=== PATIENT | female | born 1965 | race African-American/Black ===

== ENCOUNTER 2017-09-30 15:43 | Inpatient (IN) | payer OTHER, MEDICARE ==
[~2017-09-30] VITALS: Ht 162.6 cm; Wt 81.2 kg
[2017-09-30] VITALS (11 sets, daily range): BP systolic 118–144; BP diastolic 72–85; PULSE 97–108; RESP 18–28; TEMP 97.8–97.9; O2SAT 96–100
[~2017-09-30 15:43] MED LIST: ARTIDRO; IMIT25TA PO; LISI-357 PO; LORA-392 PO; LORTA5 PO; PRED5TAB PO; RANI150 PO
--- NOTE | 2017-09-30 16:05 | PD ---
HPI Chief Complaint: Shortness of breath Time Seen by Provider: 15:54 Travel History International Travel<30 days: No Contact w/Intl Traveler<30days: No Traveled to known affect area: No History of Present Illness HPI 52-year-old female patient with history of MS, previous stroke, presents to the ER today because she has had worsening dyspnea on exertion end shortness of breath with getting up from bed. She has been coughing. She states that similar symptoms have happened before. She states that she has had "fluid in the lungs". She denies any chest pains, fevers, or other symptoms. Modifying Factors: None Associated Signs & Symptoms: Worsening shortness of breath, dyspnea on exertion Risk Factors: History of "fluid in the lungs" PFSH Past Medical History Arthritis: Yes Depression: Yes Cardiovascular Problems: Yes High Cholesterol: Yes Cerebrovascular Accident: Yes Hypertension: Yes Musculoskeletal: Yes Neurologic: Yes Migraines: Yes Past Surgical History Hysterectomy: Yes Social History Alcohol Use: Yes (RARE) Tobacco Use: No Substance Use: No Allergies-Medications (Allergen,Severity, Reaction): Coded Allergies: latex (Unverified Allergy, Unknown, RASH, 09/30/17) furosemide (Verified Adverse Reaction, Unknown, 09/30/17) pt states get cramping in his legs Reported Meds & Prescriptions Reported Meds & Active Scripts Active Reported Baclofen 10 Mg Tab 10 Mg PO TID Scopolamine 1 Mg/3 Day Patch.td.3 0.33 Patch TD Q72HR Meclizine (Meclizine HCl) 12.5 Mg Tab 12.5 Mg PO BID PRN Lisinopril 10 Mg Tab 10 Mg PO DAILY Ferrous Sulfate DR (Ferrous Sulfate) 324 Mg Tabdr 324 Mg PO DAILY Aspirin 81 Mg Chew 81 Mg PO DAILY Review of Systems Except as stated in HPI: all other systems reviewed are Neg Physical Exam Narrative GENERAL: Well-developed middle-aged female patient whose currently in moderate distress, in mild respiratory distress. Awake, alert, oriented 3. Fairly agitated. SKIN: Focused skin assessment warm/dry. HEAD: Atraumatic. Normocephalic. EYES: Pupils equal and round. No scleral icterus. No injection or drainage. ENT: No nasal bleeding or discharge. Mucous membranes pink and moist. NECK: Trachea midline. No JVD. CARDIOVASCULAR: Regular rate and rhythm. No murmur appreciated. RESPIRATORY: Mild accessory muscle use. Bilateral basilar rales. GASTROINTESTINAL: Abdomen soft, non-tender, nondistended. Hepatic and splenic margins not palpable. MUSCULOSKELETAL: No obvious deformities. No clubbing. No cyanosis. No edema. NEUROLOGICAL: Awake and alert. No obvious cranial nerve deficits. Motor grossly within normal limits. Normal speech. PSYCHIATRIC: Agitated mood and affect; insight and judgment normal. Data Data Last Documented VS Vital Signs Date Time Temp Pulse Resp B/P (MAP) Pulse Ox O2 Delivery O2 Flow Rate FiO2 09/30/17 18:29 108 24 133/85 (101) 98 Non-Rebreather 12.00 100 09/30/17 17:28 97.9 Orders Orders Complete Blood Count With Diff (09/30/17 15:55) Comprehensive Metabolic Panel (09/30/17 15:55) B-Type Natriuretic Peptide (09/30/17 15:55) Act Partial Throm Time (Ptt) (09/30/17 15:55) Prothrombin Time / Inr (Pt) (09/30/17 15:55) Ckmb (Isoenzyme) Profile (09/30/17 15:55) Troponin I (09/30/17 15:55) Arterial Blood Gas (Abg) (09/30/17 15:55) Iv Access Insert/Monitor (09/30/17 15:55) Electrocardiogram (09/30/17 15:55) Ecg Monitoring (09/30/17 15:55) Oximetry (09/30/17 15:55) Oxygen Administration (09/30/17 15:55) Chest, Single Ap (09/30/17 15:55) Sodium Chloride 0.9% Flush (Ns Flush) (09/30/17 16:00) Resp Bipap / Cpap Non Invas Vt (09/30/17 15:55) Furosemide Inj (Lasix Inj) (09/30/17 16:30) Nitroglycerin 2% Oint (Nitroglycerin 2% (09/30/17 16:30) Ct Pulmonary Angiogram (09/30/17 17:23) Iohexol 350 Inj (Omnipaque 350 Inj) (09/30/17 18:09) Methylprednisolone So Succ Inj (Solumedr (09/30/17 18:30) Diphenhydramine Inj (Benadryl Inj) (09/30/17 18:30) Blood Culture (09/30/17 18:23) Azithromycin Inj (Zithromax Inj) (09/30/17 18:30) Cefepime Inj (Maxipime Inj) (09/30/17 18:30) Admit Order (Ed Use Only) (09/30/17 18:37) Labs Laboratory Tests Test 09/30/17 16:00 09/30/17 16:15 White Blood Count 11.1 TH/MM3 Red Blood Count 4.82 MIL/MM3 Hemoglobin 11.7 GM/DL Hematocrit 37.3 % Mean Corpuscular Volume 77.4 FL Mean Corpuscular Hemoglobin 24.3 PG Mean Corpuscular Hemoglobin Concent 31.4 % Red Cell Distribution Width 16.3 % Platelet Count 360 TH/MM3 Mean Platelet Volume 9.2 FL Neutrophils (%) (Auto) 60.5 % Lymphocytes (%) (Auto) 25.1 % Monocytes (%) (Auto) 6.7 % Eosinophils (%) (Auto) 6.8 % Basophils (%) (Auto) 0.9 % Neutrophils # (Auto) 6.7 TH/MM3 Lymphocytes # (Auto) 2.8 TH/MM3 Monocytes # (Auto) 0.7 TH/MM3 Eosinophils # (Auto) 0.7 TH/MM3 Basophils # (Auto) 0.1 TH/MM3 CBC Comment DIFF FINAL Differential Comment Prothrombin Time 10.6 SEC Prothromb Time International Ratio 1.0 RATIO Activated Partial Thromboplast Time 24.5 SEC Blood Urea Nitrogen 9 MG/DL Creatinine 0.76 MG/DL Random Glucose 80 MG/DL Total Protein 8.6 GM/DL Albumin 3.4 GM/DL Calcium Level 9.5 MG/DL Alkaline Phosphatase 89 U/L Aspartate Amino Transf (AST/SGOT) 22 U/L Alanine Aminotransferase (ALT/SGPT) 39 U/L Total Bilirubin 0.3 MG/DL Sodium Level 138 MEQ/L Potassium Level 3.4 MEQ/L Chloride Level 99 MEQ/L Carbon Dioxide Level 34.6 MEQ/L Anion Gap 4 MEQ/L Estimat Glomerular Filtration Rate 97 ML/MIN Total Creatine Kinase 60 U/L Troponin I LESS THAN 0.02 NG/ML B-Type Natriuretic Peptide 5 PG/ML Blood Gas Puncture Site LT BRACHIAL Blood Gas Patient Temperature 98.6 Blood Gas HCO3 34 mmol/L Blood Gas Base Excess 8.9 mmol/L Blood Gas Oxygen Saturation 96 % Arterial Blood pH 7.39 Arterial Blood Partial Pressure CO2 57 mmHg Arterial Blood Partial Pressure O2 93 mmHG Arterial Blood Oxygen Content 15.8 Vol % Arterial Blood Carboxyhemoglobin 1.0 % Arterial Blood Methemoglobin 0.7 % Blood Gas Hemoglobin 11.7 G/DL Oxygen Delivery Device PRB Blood Gas Liter Flow 15 L/M [facility] Medical Decision Making Medical Screen Exam Complete: Yes Emergency Medical Condition: Yes Medical Record Reviewed: Yes Interpretation(s) EKG shows normal sinus rhythm at a rate of 97 bpm with no signs of acute ST changes. Laboratory Tests Test 09/30/17 16:00 09/30/17 16:15 White Blood Count 11.1 TH/MM3 (4.0-11.0) Mean Corpuscular Volume 77.4 FL (80.0-100.0) Mean Corpuscular Hemoglobin 24.3 PG (27.0-34.0) Mean Corpuscular Hemoglobin Concent 31.4 % (32.0-36.0) Eosinophils (%) (Auto) 6.8 % (0.0-4.0) Eosinophils # (Auto) 0.7 TH/MM3 (0-0.4) Total Protein 8.6 GM/DL (6.4-8.2) Potassium Level 3.4 MEQ/L (3.5-5.1) Carbon Dioxide Level 34.6 MEQ/L (21.0-32.0) Anion Gap 4 MEQ/L (5-15) Troponin I LESS THAN 0.02 NG/ML Blood Gas HCO3 34 mmol/L (22-26) Blood Gas Base Excess 8.9 mmol/L (-2-2) Arterial Blood Partial Pressure CO2 57 mmHg (38-42) Blood Gas Hemoglobin 11.7 G/DL (12.0-16.0) Last [address] Angiography 09/30/17 1723 Signed Impressions: Service Date/Time: Saturday, September 30, 2017 17:50 - CONCLUSION: 1. Diffuse bilateral pulmonary infiltrates with cylindrical bronchiectasis. 2. No pulmonary embolus. Dre Moseley Jr., MD Chest X-Ray 09/30/17 1555 Signed Impressions: Service Date/Time: Saturday, September 30, 2017 16:06 - CONCLUSION: Diffuse pulmonary vascular congestion with small lung volumes. Talib Hernandez MD Differential Diagnosis Dyspnea on exertion, shortness of breath: CHF exacerbation versus pleural effusion versus pneumonia Narrative Course Chest x-ray shows pulmonary edema added initially nitroglycerin or Lasix as ordered for the patient. However, the patient states that she has an adverse reaction to Lasix in had refused the Lasix. She was not put on BiPAP initially with some relief in symptoms but she was not able to tolerate it due to anxiety on the BiPAP, states that it felt uncomfortable on her head. She had a normal BNP. CTA was not done to rule out PE but did not show any signs of PE. She does show signs of pulmonary infiltrates bilaterally with bronchiectasis. Considering normal BNP, at this point I am also concerned of underlying diffuse interstitial pneumonia. IV antibiotics were initiated after cultures were drawn. She returned from CTA also complaining of worsening shortness of breath in feels like her throat closing up. As a precaution as well Solu-Medrol was not given an Benadryl as given. My plan at this point as to admit this patient for further evaluation in treatment. Patient has a fairly complex patient an it it is unclear if pneumonia as her only etiology for this issue. She will need her respiratory status will more closely monitored. Case with discussed with Dr. Tobin for admission. Aggregate critical care time was 25 next minutes. Time to perform other separately billable procedures was not included in the critical care time. My time did not include minutes spent treating any other patients simultaneously or on activities that did not directly contribute to the patient's treatment. The services I provided to this patient were to treat and/or prevent clinically significant deterioration that could result in: Worsening respiratory distress, hypoxia, respiratory arrest, I provided critical care services requiring my management, as noted below: Chart data review, documentation time, medication orders and management, vital sign assessments/reviewing monitor data, ordering and reviewing lab tests, ordering and interpreting/reviewing x-rays and diagnostic studies, care of the patient and discussion of the patient with the admitting physicians. Diagnosis Primary Impression: Shortness of breath Additional Impressions: Hypoxia Pneumonia Admitting Information Admitting Physician Requests: Navid Severino MD Sep 30, 2017 16:05
--- NOTE | 2017-09-30 16:18 | RADRPT ---
EXAM DATE/TIME: 09/30/2017 16:06 [facility] COMPARISON: No previous studies available for comparison. INDICATIONS : Short of breath. MEDICAL HISTORY : Stroke. SURGICAL HISTORY : cesarian sections ENCOUNTER: Initial ACUITY: 1 day PAIN SCORE: 0/10 LOCATION: Bilateral chest FINDINGS: A single view of the chest demonstrates mild perihilar basilar congestion. The heart is borderline en larged. No pneumothorax.. Osseous structures are intact. CONCLUSION: Diffuse pulmonary vascular congestion with small lung volumes. Talib Hernandez MD on September 30, 2017 at 16:15 Board Certified Radiologist. This report was verified electronically.
[2017-09-30] MEDS ORDERED: FUROSEMIDE 40 MG/4 ML VIAL IV PUSH ONE (16:30)
[2017-09-30] MEDS ORDERED: NITROGLYCERIN 2% OINT 1 GM PACKET TOPICAL ONE (16:30)
[2017-09-30] MEDS: SODIUM CHLORIDE 0.9% FLUSH 10 ML FLUSH IVF PRN ×2 (16:31→18:25)
[2017-09-30 16:34] LABS: AUTOMATED NEUTROPHIL # 6.7 TH/MM3 (1.8-7.7); BASOPHIL # 0.1 TH/MM3 (0-0.2); BASOPHIL % 0.9 % (0.0-2.0); EOSINOPHIL # 0.7 TH/MM3 (0-0.4); EOSINOPHIL % 6.8 % (0.0-4.0); HEMATOCRIT 37.3 % (35.0-46.0); HEMOGLOBIN 11.7 GM/DL (11.6-15.3); LYMPH % 25.1 % (9.0-44.0); LYMPHOCYTE # 2.8 TH/MM3 (1.0-4.8); MEAN CELL VOLUME 77.4 FL (80.0-100.0); MEAN CORPUSCULAR HEMOGLOBIN 24.3 PG (27.0-34.0); MEAN CORPUSCULAR HGB CONC 31.4 % (32.0-36.0); MEAN PLATELET VOLUME 9.2 FL (7.0-11.0); MONO % 6.7 % (0.0-8.0); MONOCYTE # 0.7 TH/MM3 (0-0.9); NEUT % 60.5 % (16.0-70.0); PLATELET COUNT 360 TH/MM3 (150-450); RED BLOOD COUNT 4.82 MIL/MM3 (4.00-5.30); RED CELL DISTRIBUTION WIDTH 16.3 % (11.6-17.2); WHITE BLOOD COUNT 11.1 TH/MM3 (4.0-11.0)
[2017-09-30 16:40] LABS: ALBUMIN 3.4 GM/DL (3.4-5.0); AST (GOT) 22 U/L (15-37); BICARBONATE 34.6 MEQ/L (21.0-32.0); BLOOD UREA NITROGEN 9 MG/DL (7-18); CALCIUM 9.5 MG/DL (8.5-10.1); CHLORIDE 99 MEQ/L (98-107); CREATININE 0.76 MG/DL (0.50-1.00); GLOMERULAR FILTRATION RATE 97 ML/MIN (>89); GLUCOSE,RANDOM 80 MG/DL (74-106); SODIUM (NA) 138 MEQ/L (136-145)
[2017-09-30 16:41] LABS: ALT (GPT) 39 U/L (10-53); PROTHROMBIN TIME - PATIENT 10.6 SEC (9.8-11.6)
[2017-09-30 16:45] LABS: ALKALINE PHOSPHATASE 89 U/L (45-117); TOTAL BILIRUBIN ADULT 0.3 MG/DL (0.2-1.0); TOTAL PROTEIN 8.6 GM/DL (6.4-8.2); TROPONIN I LESS THAN 0.02 NG/ML (0.02-0.05)
[2017-09-30] MEDS ORDERED: MECL12.574 PO (16:50)
[2017-09-30] MEDS ORDERED: ASPI-516 PO (16:50)
[2017-09-30] MEDS ORDERED: LISI10TA3 PO (16:50)
[2017-09-30] MEDS ORDERED: FERR324T4 PO (16:50)
[2017-09-30] MEDS ORDERED: SCOP1PAT6 TD (16:55)
[2017-09-30] MEDS ORDERED: BACL10TA PO (16:58)
[2017-09-30] MEDS ORDERED: IOHEXOL 350 MG/ML 10 ML VIAL (for RAD DIAG) IVCONTRAST ONE (18:09)
--- NOTE | 2017-09-30 18:15 | RADRPT ---
EXAM DATE/TIME: 09/30/2017 17:50 [facility] COMPARISON: No previous studies available for comparison. INDICATIONS : Shortness of breath for 1 week. IV CONTRAST: 50 cc Omnipaque 350 (iohexol) IV RADIATION DOSE: 22.81 CTDIvol (mGy) MEDICAL HISTORY : Hypertension. Cardiovascular disease SURGICAL HISTORY : Hysterectomy. ENCOUNTER: Initial ACUITY: 1 week PAIN SCALE: 0/10 LOCATION: chest TECHNIQUE: Volumetric scanning of the chest was performed using a pulmonary embolism protocol MIP images were re constructed. Using automated exposure control and adjustment of the mA and/or kV according to patien t size, radiation dose was kept as low as reasonably achievable to obtain optimal diagnostic quality images. DICOM format image data is available electronically for review and comparison. Follow-up recommendations for detected pulmonary nodules are based at a minimum on nodule size and pa tient risk factors according to Fleischner Society Guidelines. FINDINGS: PULMONARY ARTERIES: No filling defects are seen in the pulmonary arteries through the segmental level. LUNGS: Diffuse bilateral pulmonary infiltrates as well as cylindrical bronchiectasis. The infiltrates are mo st pronounced within the basilar segments. Consolidations are quite dense with a resulting air bronch ogram formation. PLEURAE: There is no pleural thickening or pleural effusion. MEDIASTINUM: Heart is normal in size. No pericardial effusion. Small lymph nodes are seen within the right hilum. No bulky adenopathy. MUSCULOSKELETAL: Within normal limits for patient age. MISCELLANEOUS: The visualized upper abdominal organs demonstrate no acute abnormality. CONCLUSION: 1. Diffuse bilateral pulmonary infiltrates with cylindrical bronchiectasis. 2. No pulmonary embolus. Dre Moseley Jr., MD on September 30, 2017 at 18:09 Board Certified Radiologist. This report was verified electronically.
[2017-09-30] MEDS ORDERED: diphenhydrAMINE HCL 50 MG/ML VIAL IV PUSH ONE (18:30)
[2017-09-30] MEDS ORDERED: methylPREDNISolone SOD SUCC 125 MG/2 ML VIAL IV PUSH ONE (18:30)
[2017-09-30] MEDS ORDERED: CEFEPIME INJ 2,000 MG in SODIUM CHLORIDE 0.9% INJ 100 ML IV ONE (18:30)
[2017-09-30] MEDS ORDERED: AZITHROMYCIN INJ 500 MG in SODIUM CHLOR 0.9% 250 ML INJ 250 ML IV ONE (18:30)
[2017-09-30] MEDS ORDERED: MAGNESIUM HYDROXIDE SUSP 30 ML CUP PO PRN (19:30)
[2017-09-30] MEDS ORDERED: ONDANSETRON HCL 4 MG/2 ML VIAL IV PUSH PRN (19:30)
[2017-09-30] MEDS ORDERED: LACTULOSE SYRUP 20 GM/30 ML CUP PO PRN (19:30)
[2017-09-30] MEDS ORDERED: ZOLPIDEM TARTRATE 5 MG TAB PO PRN (19:30)
[2017-09-30] MEDS ORDERED: SENNOSIDES 8.6 MG TAB PO PRN (19:30)
[2017-09-30] MEDS ORDERED: SCOPOLAMINE 1.5 MG PATCH T-DERMAL SCH (19:30)
[2017-09-30] MEDS ORDERED: BISACODYL 10 MG SUPP RECTAL PRN (19:30)
[2017-09-30] MEDS ORDERED: CHLORHEXIDINE GLUCONATE 2 % 1 PACK (2 CLOTHS) TOP PRN (19:30)
[2017-09-30] MEDS ORDERED: MISCELLANEOUS NURSING INFORMATION XX SCH (19:30)
[2017-09-30] MEDS ORDERED: MECLIZINE HCL 25 MG TAB PO PRN (19:30)
[2017-09-30] MEDS ORDERED: ACETAMINOPHEN 325 MG TAB PO PRN (19:30)
[2017-09-30] MEDS: HEPARIN SODIUM - SQ 10,000 UNITS/ML VIAL SQ SCH (20:00)
[2017-09-30] MEDS ORDERED: PILL SPLITTER OTHER PRN (20:30)
[2017-09-30] MEDS: FAMOTIDINE 20 MG/2 ML VIAL IV PUSH SCH (21:00)
[2017-09-30] MEDS: DOCUSATE SODIUM 50 MG/SENNA 8.6 MG TAB PO SCH (21:00)
[2017-09-30] MEDS: RESP: ALBUTEROL 2.5 MG/IPRATROPIUM 0.5 MG NEB (SCH) INH (21:05)
--- NOTE | 2017-09-30 21:10 | HHI.HP ---
HPI Service Critical Care Medicine Primary Care Physician Luis Lowery MD Admission Diagnosis Hypoxia/respiratory distress/pneumonia Diagnosis: Travel History International Travel<30 Days: No Contact w/Intl Traveler <30 Da: No Traveled to Known Affected Are: No History of Present Illness 52-year-old unfortunate female patient with history of MS, previous stroke, chronic lung disease, presents to the ER today because she has had worsening dyspnea on exertion end shortness of breath with getting up from bed. She has also been coughing. She states that similar symptoms have happened before and she has been like this since October last year. She states that she has had "fluid in the lungs". She denies any chest pains, fevers, or other symptoms. She is very poor historian. Review of Systems ROS Unable to obtain due to respiratory distress Past Family Social History Allergies: Coded Allergies: latex (Unverified Allergy, Unknown, RASH, 09/30/17) furosemide (Verified Adverse Reaction, Unknown, 09/30/17) pt states get cramping in his legs Past Medical History Lupus ? HTN GERD Migraines Multiple sclerosis Chronic lung disease Past Surgical History Hysterectomy Reported Medications Reported Meds & Active Scripts Active Reported Baclofen 10 Mg Tab 10 Mg PO TID Scopolamine 1 Mg/3 Day Patch.td.3 0.33 Patch TD Q72HR Meclizine (Meclizine HCl) 12.5 Mg Tab 12.5 Mg PO BID PRN Lisinopril 10 Mg Tab 10 Mg PO DAILY Ferrous Sulfate DR (Ferrous Sulfate) 324 Mg Tabdr 324 Mg PO DAILY Aspirin 81 Mg Chew 81 Mg PO DAILY Active Ordered Medications Current Medications Medications (Trade) Dose Ordered Sig/Marielos Route PRN Reason Start Time Stop Time Status Last Admin Dose Admin Aspirin (Aspirin Chew) 81 mg DAILY PO 10/01/17 09:00 Baclofen (Lioresal) 10 mg TID PO 10/01/17 09:00 Lisinopril (Prinivil) 10 mg DAILY PO 10/01/17 09:00 Meclizine HCl (Antivert) 12.5 mg BID PRN PO VERTIGO 09/30/17 19:30 Ferrous Sulfate (Ferrous Sulfate) 325 mg DAILY PO 10/01/17 09:00 Sodium Chloride (NS Flush) 2 ml UNSCH PRN IV FLUSH FLUSH AFTER USING IV ACCESS 09/30/17 19:30 Sodium Chloride (NS Flush) 2 ml BID IV FLUSH 09/30/17 21:00 09/30/17 21:42 Acetaminophen (Tylenol) 650 mg Q6H PRN PO PAIN 1-5 AND/OR FEVER >101F 09/30/17 19:30 Morphine Sulfate (Morphine Inj) 2 mg Q2H PRN IV PUSH PAIN SCALE 6 TO 10 09/30/17 20:30 Famotidine (Pepcid Inj) 20 mg Q12HR IV PUSH 09/30/17 21:00 Ondansetron HCl (Zofran Inj) 4 mg Q6H PRN IV PUSH NAUSEA OR VOMITING 09/30/17 19:30 Zolpidem Tartrate (Ambien) 5 mg HS PRN PO INSOMNIA 09/30/17 19:30 Albuterol/ Ipratropium (Duoneb Neb) 1 ampule Q4HR NEB INH 09/30/17 20:00 10/01/17 02:12 Albuterol/ Ipratropium (Duoneb Neb) 1 ampule Q2HR NEB PRN INH WHEEZING 09/30/17 19:30 Heparin Sodium (Porcine) (Heparin Inj) 5,000 units Q8H SQ 09/30/17 20:00 Miscellaneous Information 1 Q361D XX 09/30/17 19:30 09/30/17 19:30 Chlorhexidine Gluconate (Chlorhexidine 2% Cloth) 3 pack Taper DAILY@04 TOP 10/01/17 04:00 09/27/18 03:59 Chlorhexidine Gluconate (Chlorhexidine 2% Cloth) 3 pack UNSCH PRN TOP HYGIENIC CARE 09/30/17 19:30 Senna/Docusate Sodium (Carolyn-Colace) 1 tab BID PO 09/30/17 21:00 Magnesium Hydroxide (Milk Of Magnesia Liq) 30 ml Q12H PRN PO Mild constipation 09/30/17 19:30 Sennosides (Senokot) 17.2 mg Q12H PRN PO Moderate constipation 09/30/17 19:30 Bisacodyl (Dulcolax Supp) 10 mg DAILY PRN RECTAL SEVERE CONSITIPATION 09/30/17 19:30 Lactulose (Lactulose Liq) 30 ml DAILY PRN PO SEVERE CONSITIPATION 09/30/17 19:30 Azithromycin 500 mg/Sodium Chloride 250 ml @ 250 mls/hr Q24H IV 10/01/17 21:00 Piperacillin Sod/ Tazobactam Sod 100 ml @ 200 mls/hr Q6H IV 09/30/17 21:00 10/01/17 02:09 Methylprednisolone Sodium Succinate (SoluMEDROL INJ) 40 mg Q6HR IV PUSH 10/01/17 00:00 09/30/17 23:42 Miscellaneous (Pill Splitter) 1 ea UNSCH PRN OTHER SEE LABEL COMMENTS 09/30/17 20:30 Family History Mother: HTN, DMI Father: DM Social History Tobacco: None, never Etoh: Only socially Illicits: None Physical Exam Vital Signs Vital Signs Date Time Temp Pulse Resp B/P (MAP) Pulse Ox O2 Delivery O2 Flow Rate FiO2 09/30/17 21:07 96 Non-Rebreather 15.00 09/30/17 19:07 107 18 137/79 (98) 100 15.00 09/30/17 18:29 108 24 133/85 (101) 98 Non-Rebreather 12.00 100 09/30/17 18:20 24 99 Non-Rebreather 12.00 100 09/30/17 17:28 97.9 97 22 144/72 (96) 100 Nasal Cannula 3.00 60 09/30/17 16:41 100 Nasal Cannula 3.00 09/30/17 16:25 100 60 09/30/17 15:58 28 100 Non-Rebreather 12.00 09/30/17 15:58 100 Non-Rebreather 12.00 09/30/17 15:50 108 28 100 Non-Rebreather 12.00 09/30/17 15:49 97.8 108 28 133/76 (95) 100 Physical Exam GENERAL: Well-developed middle-aged female patient in moderate respiratory distress. Awake, alert, oriented 3. SKIN: Focused skin assessment warm/dry. HEAD: Atraumatic. Normocephalic. EYES: Pupils equal and round. No scleral icterus. No injection or drainage. ENT: No nasal bleeding or discharge. Mucous membranes pink and moist. NECK: Trachea midline. No JVD. CARDIOVASCULAR: Regular rate and rhythm. No murmur appreciated. RESPIRATORY: Mild accessory muscle use. Bilateral basilar rales. GASTROINTESTINAL: Abdomen soft, non-tender, nondistended. Hepatic and splenic margins not palpable. MUSCULOSKELETAL: No obvious deformities. No clubbing. No cyanosis. No edema. NEUROLOGICAL: Awake and alert. No obvious cranial nerve deficits. Motor grossly within normal limits. Normal speech. Laboratory Laboratory Tests Test 09/30/17 16:00 09/30/17 16:15 09/30/17 20:25 White Blood Count 11.1 Red Blood Count 4.82 Hemoglobin 11.7 Hematocrit 37.3 Mean Corpuscular Volume 77.4 Mean Corpuscular Hemoglobin 24.3 Mean Corpuscular Hemoglobin Concent 31.4 Red Cell Distribution Width 16.3 Platelet Count 360 Mean Platelet Volume 9.2 Neutrophils (%) (Auto) 60.5 Lymphocytes (%) (Auto) 25.1 Monocytes (%) (Auto) 6.7 Eosinophils (%) (Auto) 6.8 Basophils (%) (Auto) 0.9 Neutrophils # (Auto) 6.7 Lymphocytes # (Auto) 2.8 Monocytes # (Auto) 0.7 Eosinophils # (Auto) 0.7 Basophils # (Auto) 0.1 CBC Comment DIFF FINAL Differential Comment Prothrombin Time 10.6 Prothromb Time International Ratio 1.0 Activated Partial Thromboplast Time 24.5 Blood Urea Nitrogen 9 Creatinine 0.76 Random Glucose 80 Total Protein 8.6 Albumin 3.4 Calcium Level 9.5 Alkaline Phosphatase 89 Aspartate Amino Transf (AST/SGOT) 22 Alanine Aminotransferase (ALT/SGPT) 39 Total Bilirubin 0.3 Sodium Level 138 Potassium Level 3.4 Chloride Level 99 Carbon Dioxide Level 34.6 Anion Gap 4 Estimat Glomerular Filtration Rate 97 Total Creatine Kinase 60 Troponin I LESS THAN 0.02 B-Type Natriuretic Peptide 5 Blood Gas Puncture Site LT BRACHIAL Blood Gas Patient Temperature 98.6 Blood Gas HCO3 34 Blood Gas Base Excess 8.9 Blood Gas Oxygen Saturation 96 Arterial Blood pH 7.39 Arterial Blood Partial Pressure CO2 57 Arterial Blood Partial Pressure O2 93 Arterial Blood Oxygen Content 15.8 Arterial Blood Carboxyhemoglobin 1.0 Arterial Blood Methemoglobin 0.7 Blood Gas Hemoglobin 11.7 Oxygen Delivery Device PRB Blood Gas Liter Flow 15 Date/Time Source Procedure Growth Status 09/30/17 20:20 Blood Other Aerobic Blood Culture Pending Received 09/30/17 20:20 Blood Other Anaerobic Blood Culture Pending Received Result Diagram: 09/30/17 1600 09/30/17 1600 Imaging Last [address] Angiography 09/30/17 1723 Signed Impressions: Service Date/Time: Saturday, September 30, 2017 17:50 - CONCLUSION: 1. Diffuse bilateral pulmonary infiltrates with cylindrical bronchiectasis. 2. No pulmonary embolus. Dre Moseley Jr., MD Chest X-Ray 09/30/17 3445 Signed Impressions: Service Date/Time: Saturday, September 30, 2017 16:06 - CONCLUSION: Diffuse pulmonary vascular congestion with small lung volumes. Talib Hernandez MD Septic Shock Reassessment Septic shock perfusion: reassessment completed Caprini VTE Risk Assessment Caprini VTE Risk Assessment: Mod/High Risk (score >= 2) Caprini Risk Assessment Model Point Value = 1 Point Value = 2 Point Value = 3 Point Value = 5 Age 41-60 Minor surgery BMI > 25 kg/m2 Swollen legs Varicose veins or History of unexplained or recurrent spontaneous Oral contraceptives or hormone replacement Sepsis (< 1 month) Serious lung disease, including pneumonia (< 1 month) Abnormal pulmonary function Acute myocardial infarction Congestive heart failure (< 1 month) History of inflammatory bowel disease Medical patient at bed rest Age 61-74 Arthroscopic surgery Major open surgery (> 45 min) Laparoscopic surgery (> 45 min) Malignancy Confined to bed (> 72 hours) Immobilizing plaster cast Central venous access Age >= 75 History of VTE Family history of VTE Factor V Leiden Prothrombin [id number] Lupus anticoagulant Anticardiolipin antibodies Elevated serum homocysteine Heparin-induced thrombocytopenia Other congenital or acquired thrombophilia Stroke (< 1 month) Elective arthroplasty Hip, pelvis, or leg fracture Acute spinal cord injury (< 1 month) Prophylaxis Regimen Total Risk Factor Score Risk Level Prophylaxis Regimen 0-1 Low Early ambulation 2 Moderate Order ONE of the following: *Sequential Compression Device (SCD) *Heparin 5000 units SQ BID 3-4 Higher Order ONE of the following medications: *Heparin 5000 units SQ TID *Enoxaparin/Lovenox 40 mg SQ daily (WT < 150 kg, CrCl > 30 mL/min) *Enoxaparin/Lovenox 30 mg SQ daily (WT < 150 kg, CrCl > 10-29 mL/min) *Enoxaparin/Lovenox 30 mg SQ BID (WT < 150 kg, CrCl > 30 mL/min) AND/OR *Sequential Compression Device (SCD) 5 or more Highest Order ONE of the following medications: *Heparin 5000 units SQ TID (Preferred with Epidurals) *Enoxaparin/Lovenox 40 mg SQ daily (WT < 150 kg, CrCl > 30 mL/min) *Enoxaparin/Lovenox 30 mg SQ daily (WT < 150 kg, CrCl > 10-29 mL/min) *Enoxaparin/Lovenox 30 mg SQ BID (WT < 150 kg, CrCl > 30 mL/min) AND *Sequential Compression Device (SCD) Assessment and Plan Assessment and Plan Respiratory failure - Underlying chronic disease - Bilateral pulmonary infiltrates - DuoNeb scheduled and when necessary - IV steroids - Empiric antibiotics - Pulmonary consultation Anemia - Ferrous Sulfate Migraine headaches - Tylenol when necessary GERD - Pepcid IV twice a day History of MS - No symptoms of exacerbation - Supportive care DVT GI prophylaxis - Teds SCDs - Subcutaneous heparin - Pepcid Critical Care: The total critical care time was 35 minutes. Time to perform other separately billable procedures was not included in the critical care time. Jay Tobin MD Sep 30, 2017 9:10 pm
[2017-09-30] MEDS: SODIUM CHLORIDE 0.9% FLUSH 10 ML FLUSH IV FLUSH SCH (21:42)
[2017-09-30] MEDS: methylPREDNISolone SOD SUCC 40 MG/1 ML VIAL IV PUSH SCH (23:42)
[2017-09-30] MEDS: PIPERACIL-TAZO 4.5 GM PREMIX 100 ML IV SCH (23:42)
[2017-10-01] VITALS (18 sets, daily range): BP systolic 109–148; BP diastolic 67–96; PULSE 82–108; RESP 20–40; TEMP 97.6–98.7; O2SAT 93–100
[2017-10-01] MEDS: PIPERACIL-TAZO 4.5 GM PREMIX 100 ML IV SCH ×4 (02:09→20:31)
[2017-10-01] MEDS: RESP: ALBUTEROL 2.5 MG/IPRATROPIUM 0.5 MG NEB (SCH) INH ×6 (02:12→19:26)
[2017-10-01] MEDS ORDERED: MAGNESIUM SULFATE INJ 2 GM in SODIUM CHLORIDE 0.9% INJ 96 ML IV PRN (03:15)
[2017-10-01] MEDS ORDERED: POTASSIUM PHOSPHATE MONOBASIC 500 MG TAB PO/TUBE PRN (03:15)
[2017-10-01] MEDS ORDERED: POTASSIUM PHOSPHATE INJ 30 MMOL in SODIUM CHLOR 0.9% 250 ML INJ 250 ML IV PRN (03:15)
[2017-10-01] MEDS ORDERED: POTASSIUM CHLOR 20 MEQ PREMIX 100 ML IV PRN ×2 (03:15)
[2017-10-01] MEDS ORDERED: SODIUM PHOSPHATE INJ 30 MMOL in SODIUM CHLOR 0.9% 250 ML INJ 240 ML IV PRN (03:15)
[2017-10-01] MEDS ORDERED: MAGNESIUM OXIDE 400 MG TAB PO PRN (03:15)
[2017-10-01] MEDS ORDERED: MAGNESIUM SULFATE INJ 4 GM in SODIUM CHLORIDE 0.9% INJ 92 ML IV PRN (03:15)
[2017-10-01] MEDS ORDERED: POTASSIUM CHLORIDE 25 MEQ EFFERVESCENT TAB PO PRN (03:15)
[2017-10-01] MEDS ORDERED: POTASSIUM PHOSPHATE MONOBASIC 500 MG TAB PO PRN (03:15)
[2017-10-01] MEDS ORDERED: POTASSIUM CHLOR 40 MEQ PREMIX 100 ML IV PRN ×2 (03:15)
[2017-10-01] MEDS: HEPARIN SODIUM - SQ 10,000 UNITS/ML VIAL SQ SCH ×3 (04:00→20:31)
[2017-10-01] MEDS: CHLORHEXIDINE GLUCONATE 2 % 1 PACK (2 CLOTHS) TOP SCH (04:00)
[2017-10-01 04:11] LABS: AUTOMATED NEUTROPHIL # 10.2 TH/MM3 (1.8-7.7); BASOPHIL % 0.2 % (0.0-2.0); EOSINOPHIL % 0.1 % (0.0-4.0); HEMATOCRIT 34.9 % (35.0-46.0); LYMPH % 9.5 % (9.0-44.0); LYMPHOCYTE # 1.1 TH/MM3 (1.0-4.8); MEAN CELL VOLUME 78.5 FL (80.0-100.0); MEAN CORPUSCULAR HEMOGLOBIN 24.7 PG (27.0-34.0); MEAN CORPUSCULAR HGB CONC 31.5 % (32.0-36.0); MEAN PLATELET VOLUME 9.3 FL (7.0-11.0); MONO % 0.6 % (0.0-8.0); MONOCYTE # 0.1 TH/MM3 (0-0.9); NEUT % 89.6 % (16.0-70.0); PLATELET COUNT 305 TH/MM3 (150-450); RED BLOOD COUNT 4.45 MIL/MM3 (4.00-5.30); RED CELL DISTRIBUTION WIDTH 15.8 % (11.6-17.2); WHITE BLOOD COUNT 11.4 TH/MM3 (4.0-11.0)
[2017-10-01 04:22] LABS: INTERNATIONAL NORMALIZED RATIO 1.1 RATIO; PROTHROMBIN TIME - PATIENT 10.7 SEC (9.8-11.6)
--- NOTE | 2017-10-01 04:50 | RADRPT ---
EXAM DATE/TIME: 10/01/2017 03:24 [facility] COMPARISON: CHEST SINGLE AP, September 30, 2017, 16:06. INDICATIONS : Shortness of breath, possible pulmonary disease. MEDICAL HISTORY : Hypertension. Cardiovascular disease. SURGICAL HISTORY : Hysterectomy. ENCOUNTER: Subsequent ACUITY: 2 days PAIN SCORE: 0/10 LOCATION: Bilateral chest FINDINGS: The heart size is enlarged. There is diffuse consolidation. Air bronchograms are seen in the left low er lobe. The costophrenic angles are grossly clear. CONCLUSION: Diffuse consolidation likely related to pulmonary edema and CHF versus other diffuse interstitial pro cesses. Fernando Ann MD on October 01, 2017 at 4:48 Board Certified Radiologist. This report was verified electronically.
[2017-10-01 04:51] LABS: ALBUMIN 3.1 GM/DL (3.4-5.0); ALKALINE PHOSPHATASE 81 U/L (45-117); ALT (GPT) 35 U/L (10-53); AST (GOT) 22 U/L (15-37); BICARBONATE 34.4 MEQ/L (21.0-32.0); BLOOD UREA NITROGEN 12 MG/DL (7-18); CALCIUM 8.8 MG/DL (8.5-10.1); CHLORIDE 100 MEQ/L (98-107); CREATININE 0.92 MG/DL (0.50-1.00); GLOMERULAR FILTRATION RATE 78 ML/MIN (>89); GLUCOSE,RANDOM 249 MG/DL (74-106); PHOSPHORUS 2.8 MG/DL (2.5-4.9); SODIUM (NA) 140 MEQ/L (136-145); TOTAL BILIRUBIN ADULT 0.4 MG/DL (0.2-1.0); TOTAL PROTEIN 8.1 GM/DL (6.4-8.2); TROPONIN I LESS THAN 0.02 NG/ML (0.02-0.05)
[2017-10-01] MEDS: methylPREDNISolone SOD SUCC 40 MG/1 ML VIAL IV PUSH SCH ×4 (04:56→23:31)
[2017-10-01] MEDS ORDERED: ETOMIDATE 40 MG/20 ML VIAL ONE (08:47)
[2017-10-01] MEDS ORDERED: PROPOFOL 500 MG/50 ML INJ 50 ML ONE (08:47)
[2017-10-01] MEDS ORDERED: LORazepam 2 MG/ML VIAL ONE (08:49)
[2017-10-01] MEDS ORDERED: LISINOPRIL 10 MG TAB PO SCH (09:00)
[2017-10-01] MEDS: BACLOFEN 10 MG TAB PO SCH ×3 (09:00→17:55)
--- NOTE | 2017-10-01 09:14 | HHI.CCPN ---
Subjective Remarks/Hospital Course 52-year-old unfortunate female patient with history of MS, previous stroke, chronic lung disease, presents to the ER today because she has had worsening dyspnea on exertion end shortness of breath with getting up from bed. She has also been coughing. She states that similar symptoms have happened before and she has been like this since October last year. She states that she has had "fluid in the lungs". She denies any chest pains, fevers, or other symptoms. She is very poor historian. 10/01 Patient was on non rebreather however she was hypoxic, tachycardic, tachypneic and using her accessory muscle for respiration she was subsequently intubated and placed on mechanical ventilation. Objective Vital Signs Date Time Temp Pulse Resp B/P (MAP) Pulse Ox O2 Delivery O2 Flow Rate FiO2 10/01/17 07:46 100 Non-Rebreather 15.00 100 10/01/17 06:00 88 10/01/17 04:00 98.7 30 109/77 (88) Intake and Output 10/01/17 10/01/17 10/02/17 08:00 16:00 00:00 Intake Total 100 ml Output Total 600 ml Balance -500 ml Result Diagram: 10/01/17 0321 10/01/17 0321 Other Results Laboratory Tests Test 09/30/17 16:00 09/30/17 16:15 09/30/17 20:25 09/30/17 21:35 White Blood Count 11.1 TH/MM3 Red Blood Count 4.82 MIL/MM3 Hemoglobin 11.7 GM/DL Hematocrit 37.3 % Mean Corpuscular Volume 77.4 FL Mean Corpuscular Hemoglobin 24.3 PG Mean Corpuscular Hemoglobin Concent 31.4 % Red Cell Distribution Width 16.3 % Platelet Count 360 TH/MM3 Mean Platelet Volume 9.2 FL Neutrophils (%) (Auto) 60.5 % Lymphocytes (%) (Auto) 25.1 % Monocytes (%) (Auto) 6.7 % Eosinophils (%) (Auto) 6.8 % Basophils (%) (Auto) 0.9 % Neutrophils # (Auto) 6.7 TH/MM3 Lymphocytes # (Auto) 2.8 TH/MM3 Monocytes # (Auto) 0.7 TH/MM3 Eosinophils # (Auto) 0.7 TH/MM3 Basophils # (Auto) 0.1 TH/MM3 CBC Comment DIFF FINAL Differential Comment Prothrombin Time 10.6 SEC Prothromb Time International Ratio 1.0 RATIO Activated Partial Thromboplast Time 24.5 SEC Blood Urea Nitrogen 9 MG/DL Creatinine 0.76 MG/DL Random Glucose 80 MG/DL Total Protein 8.6 GM/DL Albumin 3.4 GM/DL Calcium Level 9.5 MG/DL Alkaline Phosphatase 89 U/L Aspartate Amino Transf (AST/SGOT) 22 U/L Alanine Aminotransferase (ALT/SGPT) 39 U/L Total Bilirubin 0.3 MG/DL Sodium Level 138 MEQ/L Potassium Level 3.4 MEQ/L Chloride Level 99 MEQ/L Carbon Dioxide Level 34.6 MEQ/L Anion Gap 4 MEQ/L Estimat Glomerular Filtration Rate 97 ML/MIN Total Creatine Kinase 60 U/L Troponin I LESS THAN 0.02 NG/ML LESS THAN 0.02 NG/ML B-Type Natriuretic Peptide 5 PG/ML Blood Gas Puncture Site LT BRACHIAL Blood Gas Patient Temperature 98.6 Blood Gas HCO3 34 mmol/L Blood Gas Base Excess 8.9 mmol/L Blood Gas Oxygen Saturation 96 % Arterial Blood pH 7.39 Arterial Blood Partial Pressure CO2 57 mmHg Arterial Blood Partial Pressure O2 93 mmHG Arterial Blood Oxygen Content 15.8 Vol % Arterial Blood Carboxyhemoglobin 1.0 % Arterial Blood Methemoglobin 0.7 % Blood Gas Hemoglobin 11.7 G/DL Oxygen Delivery Device PRB Blood Gas Liter Flow 15 L/M Nasal Screen MRSA (PCR) MRSA NOT DETECTED Test 10/01/17 03:21 White Blood Count 11.4 TH/MM3 Red Blood Count 4.45 MIL/MM3 Hemoglobin 11.0 GM/DL Hematocrit 34.9 % Mean Corpuscular Volume 78.5 FL Mean Corpuscular Hemoglobin 24.7 PG Mean Corpuscular Hemoglobin Concent 31.5 % Red Cell Distribution Width 15.8 % Platelet Count 305 TH/MM3 Mean Platelet Volume 9.3 FL Neutrophils (%) (Auto) 89.6 % Lymphocytes (%) (Auto) 9.5 % Monocytes (%) (Auto) 0.6 % Eosinophils (%) (Auto) 0.1 % Basophils (%) (Auto) 0.2 % Neutrophils # (Auto) 10.2 TH/MM3 Lymphocytes # (Auto) 1.1 TH/MM3 Monocytes # (Auto) 0.1 TH/MM3 Eosinophils # (Auto) 0.0 TH/MM3 Basophils # (Auto) 0.0 TH/MM3 CBC Comment DIFF FINAL Differential Comment Prothrombin Time 10.7 SEC Prothromb Time International Ratio 1.1 RATIO Activated Partial Thromboplast Time 23.8 SEC Blood Urea Nitrogen 12 MG/DL Creatinine 0.92 MG/DL Random Glucose 249 MG/DL Total Protein 8.1 GM/DL Albumin 3.1 GM/DL Calcium Level 8.8 MG/DL Phosphorus Level 2.8 MG/DL Magnesium Level 2.0 MG/DL Alkaline Phosphatase 81 U/L Aspartate Amino Transf (AST/SGOT) 22 U/L Alanine Aminotransferase (ALT/SGPT) 35 U/L Total Bilirubin 0.4 MG/DL Sodium Level 140 MEQ/L Potassium Level 3.8 MEQ/L Chloride Level 100 MEQ/L Carbon Dioxide Level 34.4 MEQ/L Anion Gap 6 MEQ/L Estimat Glomerular Filtration Rate 78 ML/MIN Troponin I LESS THAN 0.02 NG/ML Imaging Last Impressions Chest X-Ray 10/01/17 0000 Signed Impressions: Service Date/Time: September 03:24 - CONCLUSION: Diffuse consolidation likely related to pulmonary edema and CHF versus other diffuse interstitial processes. Fernando Ann MD CT Angiography 09/30/17 1723 Signed Impressions: Service Date/Time: Saturday, September 30, 2017 17:50 - CONCLUSION: 1. Diffuse bilateral pulmonary infiltrates with cylindrical bronchiectasis. 2. No pulmonary embolus. Dre Moseley Jr., MD Objective Remarks GENERAL: Well-developed middle-aged female patient intubated SKIN: Focused skin assessment warm/dry. HEAD: Atraumatic. Normocephalic. EYES: Pupils equal and round. No scleral icterus. No injection or drainage. ENT: No nasal bleeding or discharge. Mucous membranes pink and moist. NECK: Trachea midline. No JVD. CARDIOVASCULAR: Tachycardic. No murmur appreciated. RESPIRATORY: Mild accessory muscle use. Bilateral basilar rales. GASTROINTESTINAL: Abdomen soft, non-tender, nondistended. Hepatic and splenic margins not palpable. MUSCULOSKELETAL: No obvious deformities. No clubbing. No cyanosis. No edema. Neuro: Intubated A/P Assessment and Plan VDRF Diffuse b/l pilm infiltrates Anemia Migraine headaches GERD History of MS Plan Neuro: Place on Diprivan infusion for sedation. Daily sedation vacation when appropriate Pulm: Continue with vent support keep sat >92% Bronchodilators, ICU vent bundle. On Solumederol 40mg Q6 Check CXR and ABG post intubation CV: Monitor HR and BP keep MAP>65mmHG Check echo to eval LV function : Monitor renal function, I/O's, electrolytes replacement per protocol. GI: On Pepcid for GI prophylaxis. Start tube feeds-Glucerna 1.5 with goal rate 45ml/hr ID: Continue with abx ( Zosyn, Azithromycin, add Vanco) monitor for signs of infections ( Fever, WBC) Check strep pneumonia and Legionella urinary Ag, check nasal washing r/o influenza. Follow up on BC. Heme: Monitor CBC Endo: Place on SSI for glycemic control GI prophylaxis- on Pepcid DVT prophylaxis- SCD, Heparin SQ. CCT 30 mins Tessa Burleson MD Oct 01, 2017 09:13
[2017-10-01] MEDS: RESP: ALBUTEROL 2.5 MG/IPRATROPIUM 0.5 MG NEB (PRN) INH ×2 (09:16→16:37)
[2017-10-01] MEDS ORDERED: Vancomycin Consult Pharmacy 1 EA OTHER SCH (09:30)
[2017-10-01] MEDS ORDERED: DEXTROSE 50% IN WATER 50 ML VIAL(D50) IV PUSH PRN (09:30)
[2017-10-01] MEDS ORDERED: GLUCAGON 1 MG/ML VIAL OTHER PRN (09:30)
[2017-10-01] MEDS: INSULIN NovoLIN REGULAR SUPPLEMENTAL SCALE SQ SCH ×5 (10:00→23:30)
[2017-10-01] MEDS: MIDAZOLAM 100 MG/100 ML INJ 100 ML IV PRN (10:14)
--- NOTE | 2017-10-01 10:16 | RADRPT ---
EXAM DATE/TIME: 10/01/2017 09:46 [facility] COMPARISON: CHEST SINGLE AP, October 01, 2017, 3:24. INDICATIONS : ET tube placement. MEDICAL HISTORY : Hypertension. Cardiovascular disease SURGICAL HISTORY : Hysterectomy. ENCOUNTER: Subsequent ACUITY: 2 days PAIN SCORE: Non-responsive. LOCATION: Bilateral chest FINDINGS: A single view of the chest demonstrates bilateral perihilar vascular congestion. There is consolidati on left lung base with air bronchograms. There is no visible pneumothorax. ET tube is in good positio n. NG tube is coiled within the stomach.. Osseous structures are intact. CONCLUSION: Consolidation left lung base. Perihilar vascular congestion. ET tube in good position.. Talib Hernandez MD on October 01, 2017 at 10:13 Board Certified Radiologist. This report was verified electronically.
[2017-10-01] MEDS: FAMOTIDINE 20 MG/2 ML VIAL IV PUSH SCH ×2 (10:21→20:31)
[2017-10-01] MEDS: SODIUM CHLORIDE 0.9% FLUSH 10 ML FLUSH IV FLUSH SCH ×2 (10:21→20:31)
[2017-10-01] MEDS: VANCOMYCIN INJ 1,750 MG in SODIUM CHLORID 0.9% 500 ML INJ 500 ML IV SCH ×2 (11:13→23:31)
[2017-10-01] MEDS: PROPOFOL 1000 MG/100 ML INJ 100 ML IV PRN ×2 (11:22→18:28)
[2017-10-01 11:24] LABS: TROPONIN I LESS THAN 0.02 NG/ML (0.02-0.05)
[2017-10-01] MEDS: ASPIRIN 81 MG CHEW TAB PO SCH (17:54)
[2017-10-01] MEDS: FERROUS SULFATE 325 MG (65 MG ELEMENTAL IRON) TAB PO SCH (17:54)
[2017-10-01] MEDS: DOCUSATE SODIUM 50 MG/SENNA 8.6 MG TAB PO SCH ×2 (17:54→20:31)
[2017-10-01] MEDS: AZITHROMYCIN INJ 500 MG in SODIUM CHLOR 0.9% 250 ML INJ 250 ML IV SCH (20:59)
--- NOTE | 2017-10-01 21:54 | EKG ---
Date Performed: 10/01/2017 Time Performed: 07:49:22 PTAGE: 52 years EKG: Sinus rhythm INFERIOR MYOCARDIAL INFARCTION , PROBABLY OLD ABNORMAL ECG PREVIOUS TRACING : 09/30/2017 21.49 Since previous tracing, no significant change noted DOCTOR: Anoop Lopez Interpretating Date/Time 10/01/2017 21:53:20
--- NOTE | 2017-10-01 22:13 | EKG ---
Date Performed: 09/30/2017 Time Performed: 21:49:38 PTAGE: 52 years EKG: SINUS TACHYCARDIA POSSIBLE INFERIOR MYOCARDIAL INFARCTION ABNORMAL RHYTHM ECG PREVIOUS TRACING : 09/30/2017 16.38 Since previous tracing, no significant change noted DOCTOR: Anoop Lopez Interpretating Date/Time 10/01/2017 22:12:15
--- NOTE | 2017-10-01 22:32 | EKG ---
Date Performed: 09/30/2017 Time Performed: 16:38:59 PTAGE: 52 years EKG: Sinus rhythm MODERATE INTRAVENTRICULAR CONDUCTION DELAY BORDERLINE ECG PREVIOUS TRACING : 03/13/2013 15.28 DOCTOR: Anoop Lopez Interpretating Date/Time 10/01/2017 22:30:41
[2017-10-02] VITALS (18 sets, daily range): BP systolic 104–142; BP diastolic 50–101; PULSE 65–98; RESP 20–67; TEMP 97.5–99; O2SAT 100
[2017-10-02] MEDS: PROPOFOL 1000 MG/100 ML INJ 100 ML IV PRN ×2 (00:01→20:40)
[2017-10-02] MEDS: RESP: ALBUTEROL 2.5 MG/IPRATROPIUM 0.5 MG NEB (SCH) INH ×6 (00:09→20:03)
[2017-10-02] MEDS: PIPERACIL-TAZO 4.5 GM PREMIX 100 ML IV SCH ×4 (02:47→20:38)
[2017-10-02] MEDS: INSULIN NovoLIN REGULAR SUPPLEMENTAL SCALE SQ SCH ×6 (02:53→22:00)
[2017-10-02] MEDS: CHLORHEXIDINE GLUCONATE 2 % 1 PACK (2 CLOTHS) TOP SCH (04:00)
[2017-10-02] MEDS: HEPARIN SODIUM - SQ 10,000 UNITS/ML VIAL SQ SCH ×3 (04:51→20:38)
[2017-10-02] MEDS: methylPREDNISolone SOD SUCC 40 MG/1 ML VIAL IV PUSH SCH ×4 (05:17→23:15)
[2017-10-02] MEDS: ASPIRIN 81 MG CHEW TAB PO SCH (08:18)
[2017-10-02] MEDS: BACLOFEN 10 MG TAB PO SCH ×3 (08:18→18:13)
[2017-10-02] MEDS: DOCUSATE SODIUM 50 MG/SENNA 8.6 MG TAB PO SCH ×2 (08:18→20:39)
[2017-10-02] MEDS: SODIUM CHLORIDE 0.9% FLUSH 10 ML FLUSH IV FLUSH SCH ×2 (08:18→20:38)
[2017-10-02] MEDS: FAMOTIDINE 20 MG/2 ML VIAL IV PUSH SCH ×2 (08:18→20:39)
[2017-10-02] MEDS: FERROUS SULFATE 325 MG (65 MG ELEMENTAL IRON) TAB PO SCH (09:00)
--- NOTE | 2017-10-02 10:20 | HHI.CCPN ---
Subjective Remarks/Hospital Course 52-year-old unfortunate female patient with history of MS, previous stroke, chronic lung disease, presents to the ER today because she has had worsening dyspnea on exertion end shortness of breath with getting up from bed. She has also been coughing. She states that similar symptoms have happened before and she has been like this since October last year. She states that she has had "fluid in the lungs". She denies any chest pains, fevers, or other symptoms. She is very poor historian. 10/01 Patient was on non rebreather however she was hypoxic, tachycardic, tachypneic and using her accessory muscle for respiration she was subsequently intubated and placed on mechanical ventilation. 10/02 Patient is sedated and intubated. Afebrile. Objective Vital Signs Date Time Temp Pulse Resp B/P (MAP) Pulse Ox O2 Delivery O2 Flow Rate FiO2 10/02/17 07:59 100 40 10/02/17 06:00 78 10/02/17 04:00 97.9 20 139/91 (107) 10/01/17 07:46 Non-Rebreather 15.00 Intake and Output 10/02/17 10/02/17 10/03/17 08:00 16:00 00:00 Intake Total 842.0 ml Output Total 0 ml Balance 842.0 ml Result Diagram: 10/01/17 0321 10/01/17 0321 Other Results Laboratory Tests Test 10/01/17 10:26 10/01/17 13:05 Total Creatine Kinase 56 U/L Troponin I LESS THAN 0.02 NG/ML Blood Gas Puncture Site LT RADIAL Blood Gas Patient Temperature 98.6 Blood Gas HCO3 34 mmol/L Blood Gas Base Excess 7.5 mmol/L Blood Gas Oxygen Saturation 97 % Arterial Blood pH 7.30 Arterial Blood Partial Pressure CO2 71 mmHg Arterial Blood Partial Pressure O2 175 mmHg Arterial Blood Oxygen Content 15.0 Vol % Arterial Blood Carboxyhemoglobin 0.6 % Arterial Blood Methemoglobin 1.5 % Blood Gas Hemoglobin 10.8 G/DL Oxygen Delivery Device VENTILATOR Blood Gas Ventilator Setting PC/AC20/32/1.0/+7 Blood Gas Inspired Oxygen 50 % Imaging Last Impressions Chest X-Ray 10/01/17 0000 Signed Impressions: Service Date/Time: September 09:46 - CONCLUSION: Consolidation left lung base. Perihilar vascular congestion. ET tube in good position.. Talib Hernandez MD CT Angiography 09/30/17 1723 Signed Impressions: Service Date/Time: Saturday, September 30, 2017 17:50 - CONCLUSION: 1. Diffuse bilateral pulmonary infiltrates with cylindrical bronchiectasis. 2. No pulmonary embolus. Dre Moseley Jr., MD Objective Remarks GENERAL: Well-developed middle-aged female patient intubated SKIN: Focused skin assessment warm/dry. HEAD: Atraumatic. Normocephalic. EYES: Pupils equal and round. No scleral icterus. No injection or drainage. ENT: No nasal bleeding or discharge. Mucous membranes pink and moist. NECK: Trachea midline. No JVD. CARDIOVASCULAR: Tachycardic. No murmur appreciated. RESPIRATORY: Mild accessory muscle use. Bilateral basilar rales. GASTROINTESTINAL: Abdomen soft, non-tender, nondistended. Hepatic and splenic margins not palpable. MUSCULOSKELETAL: No obvious deformities. No clubbing. No cyanosis. No edema. Neuro: Intubated A/P Assessment and Plan VDRF Diffuse b/l pilm infiltrates Anemia Migraine headaches GERD History of MS Plan Neuro: On Diprivan/Fentanyl infusion for sedation. Daily sedation vacation when appropriate Pulm: Continue with vent support keep sat >92% Bronchodilators, ICU vent bundle. On Solumederol 40mg Q6 Check CXR and ABG CV: Monitor HR and BP keep MAP>65mmHG For 2D to eval LV function : Monitor renal function, I/O's, electrolytes replacement per protocol. Diurese with Lasix 40mg x1 GI: On Pepcid for GI prophylaxis. On tube feeds-Glucerna 1.5 with goal rate 45ml /hr ID: Continue with abx ( Zosyn, Azithromycin, Vanco) monitor for signs of infections ( Fever, WBC) Check strep pneumonia and Legionella urinary Ag, check nasal washing r/o influenza. Follow up on BC and sputum cx Heme: Monitor CBC Endo: SSI for glycemic control GI prophylaxis- on Pepcid DVT prophylaxis- SCD, Heparin SQ. Follow up on labs Level 3 Tessa Burleson MD Oct 02, 2017 10:20
--- NOTE | 2017-10-02 11:14 | RADRPT ---
EXAM DATE/TIME: 10/02/2017 10:32 [facility] COMPARISON: CHEST SINGLE AP, October 01, 2017, 9:46. INDICATIONS : Shortness of breath. Ventilator dependent. MEDICAL HISTORY : Hypertension. Cardiovascular disease. SURGICAL HISTORY : Hysterectomy. ENCOUNTER: Subsequent ACUITY: 2 days PAIN SCORE: Non-responsive. LOCATION: Bilateral chest FINDINGS: ET tube remains above the yoselyn nasogastric tube is in the midline of the stomach. Again noted is hy poaeration and elevation hemidiaphragms. Left basilar patchy consolidation is again appreciated mild prominence of the perivascular interstitium which is probably secondary to diminished inspiratory eff ort CONCLUSION: Stable chest. ET tube above the yoselyn. Ousmane Peraza MD on October 02, 2017 at 11:10 Board Certified Radiologist. This report was verified electronically.
[2017-10-02] MEDS: VANCOMYCIN INJ 1,750 MG in SODIUM CHLORID 0.9% 500 ML INJ 500 ML IV SCH (11:38)
[2017-10-02 11:42] LABS: BASOPHIL % 0.2 % (0.0-2.0); HEMATOCRIT 35.1 % (35.0-46.0); HEMOGLOBIN 10.8 GM/DL (11.6-15.3); LYMPH % 6.1 % (9.0-44.0); LYMPHOCYTE # 1.3 TH/MM3 (1.0-4.8); MEAN CELL VOLUME 77.7 FL (80.0-100.0); MEAN CORPUSCULAR HGB CONC 30.9 % (32.0-36.0); MEAN PLATELET VOLUME 8.8 FL (7.0-11.0); MONO % 3.3 % (0.0-8.0); MONOCYTE # 0.7 TH/MM3 (0-0.9); NEUT % 90.4 % (16.0-70.0); PLATELET COUNT 282 TH/MM3 (150-450); RED BLOOD COUNT 4.52 MIL/MM3 (4.00-5.30); RED CELL DISTRIBUTION WIDTH 16.1 % (11.6-17.2); WHITE BLOOD COUNT 21.1 TH/MM3 (4.0-11.0)
[2017-10-02 11:57] LABS: BICARBONATE 33.8 MEQ/L (21.0-32.0); CALCIUM 9.3 MG/DL (8.5-10.1); CREATININE 0.82 MG/DL (0.50-1.00)
[2017-10-02] MEDS ORDERED: FUROSEMIDE 40 MG/4 ML VIAL IV PUSH ONE (13:00)
[2017-10-02] MEDS: AZITHROMYCIN INJ 500 MG in SODIUM CHLOR 0.9% 250 ML INJ 250 ML IV SCH (20:38)
[2017-10-02] MEDS: MIDAZOLAM 100 MG/100 ML INJ 100 ML IV PRN (20:39)
[2017-10-02] MEDS ORDERED: PHARMACY ORDERED LAB ONE (23:45)
[2017-10-03] VITALS (20 sets, daily range): BP systolic 110–144; BP diastolic 69–87; PULSE 57–75; RESP 20; TEMP 97.4–98.2; O2SAT 35–100
[2017-10-03] MEDS: VANCOMYCIN INJ 1,750 MG in SODIUM CHLORID 0.9% 500 ML INJ 500 ML IV SCH ×2
[2017-10-03] MEDS: RESP: ALBUTEROL 2.5 MG/IPRATROPIUM 0.5 MG NEB (SCH) INH ×7 (00:34→23:43)
[2017-10-03] MEDS: INSULIN NovoLIN REGULAR SUPPLEMENTAL SCALE SQ SCH ×6 (02:00→22:43)
[2017-10-03] MEDS: PROPOFOL 1000 MG/100 ML INJ 100 ML IV PRN ×3 (02:33→20:52)
[2017-10-03] MEDS: MIDAZOLAM 100 MG/100 ML INJ 100 ML IV PRN ×2 (02:33→20:52)
[2017-10-03] MEDS: PIPERACIL-TAZO 4.5 GM PREMIX 100 ML IV SCH ×4 (02:33→20:51)
[2017-10-03] MEDS: CHLORHEXIDINE GLUCONATE 2 % 1 PACK (2 CLOTHS) TOP SCH (04:00)
[2017-10-03] MEDS: HEPARIN SODIUM - SQ 10,000 UNITS/ML VIAL SQ SCH ×3 (05:34→20:50)
[2017-10-03] MEDS: methylPREDNISolone SOD SUCC 40 MG/1 ML VIAL IV PUSH SCH ×3 (05:41→17:55)
[2017-10-03 06:12] LABS: AUTOMATED NEUTROPHIL # 16.4 TH/MM3 (1.8-7.7); BASOPHIL # 0.1 TH/MM3 (0-0.2); BASOPHIL % 0.4 % (0.0-2.0); EOSINOPHIL % 0.1 % (0.0-4.0); HEMOGLOBIN 10.6 GM/DL (11.6-15.3); LYMPH % 7.1 % (9.0-44.0); LYMPHOCYTE # 1.3 TH/MM3 (1.0-4.8); MEAN CELL VOLUME 77.6 FL (80.0-100.0); MEAN CORPUSCULAR HEMOGLOBIN 24.1 PG (27.0-34.0); MEAN CORPUSCULAR HGB CONC 31.1 % (32.0-36.0); MEAN PLATELET VOLUME 9.1 FL (7.0-11.0); MONO % 3.2 % (0.0-8.0); MONOCYTE # 0.6 TH/MM3 (0-0.9); NEUT % 89.2 % (16.0-70.0); PLATELET COUNT 268 TH/MM3 (150-450); RED BLOOD COUNT 4.38 MIL/MM3 (4.00-5.30); RED CELL DISTRIBUTION WIDTH 16.2 % (11.6-17.2); WHITE BLOOD COUNT 18.4 TH/MM3 (4.0-11.0)
[2017-10-03 06:34] LABS: BICARBONATE 36.1 MEQ/L (21.0-32.0); CALCIUM 9.1 MG/DL (8.5-10.1); CREATININE 0.92 MG/DL (0.50-1.00)
[2017-10-03] MEDS: BACLOFEN 10 MG TAB PO SCH ×3 (08:41→17:54)
[2017-10-03] MEDS: DOCUSATE SODIUM 50 MG/SENNA 8.6 MG TAB PO SCH ×2 (08:41→20:51)
[2017-10-03] MEDS: SODIUM CHLORIDE 0.9% FLUSH 10 ML FLUSH IV FLUSH SCH ×2 (08:42→20:51)
[2017-10-03] MEDS: ASPIRIN 81 MG CHEW TAB PO SCH (08:42)
[2017-10-03] MEDS: FAMOTIDINE 20 MG/2 ML VIAL IV PUSH SCH ×2 (08:42→20:51)
[2017-10-03] MEDS: FERROUS SULFATE 325 MG (65 MG ELEMENTAL IRON) TAB PO SCH (08:43)
--- NOTE | 2017-10-03 10:04 | HHI.CCPN ---
Subjective Remarks/Hospital Course 52-year-old unfortunate female patient with history of MS, previous stroke, chronic lung disease, presents to the ER today because she has had worsening dyspnea on exertion end shortness of breath with getting up from bed. She has also been coughing. She states that similar symptoms have happened before and she has been like this since October last year. She states that she has had "fluid in the lungs". She denies any chest pains, fevers, or other symptoms. She is very poor historian. 10/01 Patient was on non rebreather however she was hypoxic, tachycardic, tachypneic and using her accessory muscle for respiration she was subsequently intubated and placed on mechanical ventilation. 10/02 Patient is sedated and intubated. Afebrile. 10/03 No events overnight. Sedated with Versed and Diprivan drips. Afebrile. Tolerating tube feeds. Objective Vital Signs Date Time Temp Pulse Resp B/P (MAP) Pulse Ox O2 Delivery O2 Flow Rate FiO2 10/03/17 09:05 35 40 10/03/17 06:00 64 10/03/17 04:00 97.8 20 135/86 (102) 10/01/17 07:46 Non-Rebreather 15.00 Intake and Output 10/03/17 10/03/17 10/04/17 08:00 16:00 00:00 Intake Total 1113 ml 40 ml Output Total 375 ml Balance 738 ml 40 ml Result Diagram: 10/03/17 0600 10/03/17 0600 Other Results Laboratory Tests Test 10/02/17 10:20 10/02/17 11:00 10/02/17 11:27 10/02/17 23:45 Blood Gas Puncture Site RT RADIAL Blood Gas Patient Temperature 98.6 Blood Gas HCO3 33 mmol/L Blood Gas Base Excess 7.6 mmol/L Blood Gas Oxygen Saturation 96 % Arterial Blood pH 7.38 Arterial Blood Partial Pressure CO2 57 mmHg Arterial Blood Partial Pressure O2 130 mmHg Arterial Blood Oxygen Content 14.6 Vol % Arterial Blood Carboxyhemoglobin 0.8 % Arterial Blood Methemoglobin 1.4 % Blood Gas Hemoglobin 10.6 G/DL Oxygen Delivery Device VENTILATOR Blood Gas Ventilator Setting Blood Gas Inspired Oxygen 40 % Blood Urea Nitrogen 15 MG/DL Creatinine 0.82 MG/DL Random Glucose 165 MG/DL Calcium Level 9.3 MG/DL Sodium Level 143 MEQ/L Potassium Level 4.0 MEQ/L Chloride Level 105 MEQ/L Carbon Dioxide Level 33.8 MEQ/L Anion Gap 4 MEQ/L Estimat Glomerular Filtration Rate 89 ML/MIN White Blood Count 21.1 TH/MM3 Red Blood Count 4.52 MIL/MM3 Hemoglobin 10.8 GM/DL Hematocrit 35.1 % Mean Corpuscular Volume 77.7 FL Mean Corpuscular Hemoglobin 24.0 PG Mean Corpuscular Hemoglobin Concent 30.9 % Red Cell Distribution Width 16.1 % Platelet Count 282 TH/MM3 Mean Platelet Volume 8.8 FL Neutrophils (%) (Auto) 90.4 % Lymphocytes (%) (Auto) 6.1 % Monocytes (%) (Auto) 3.3 % Eosinophils (%) (Auto) 0.0 % Basophils (%) (Auto) 0.2 % Neutrophils # (Auto) 19.0 TH/MM3 Lymphocytes # (Auto) 1.3 TH/MM3 Monocytes # (Auto) 0.7 TH/MM3 Eosinophils # (Auto) 0.0 TH/MM3 Basophils # (Auto) 0.0 TH/MM3 CBC Comment DIFF FINAL Differential Comment Vancomycin Level Trough 29.1 MCG/ML Test 10/03/17 06:00 White Blood Count 18.4 TH/MM3 Red Blood Count 4.38 MIL/MM3 Hemoglobin 10.6 GM/DL Hematocrit 34.0 % Mean Corpuscular Volume 77.6 FL Mean Corpuscular Hemoglobin 24.1 PG Mean Corpuscular Hemoglobin Concent 31.1 % Red Cell Distribution Width 16.2 % Platelet Count 268 TH/MM3 Mean Platelet Volume 9.1 FL Neutrophils (%) (Auto) 89.2 % Lymphocytes (%) (Auto) 7.1 % Monocytes (%) (Auto) 3.2 % Eosinophils (%) (Auto) 0.1 % Basophils (%) (Auto) 0.4 % Neutrophils # (Auto) 16.4 TH/MM3 Lymphocytes # (Auto) 1.3 TH/MM3 Monocytes # (Auto) 0.6 TH/MM3 Eosinophils # (Auto) 0.0 TH/MM3 Basophils # (Auto) 0.1 TH/MM3 CBC Comment AUTO DIFF Differential Comment AUTO DIFF CONFIRMED Blood Urea Nitrogen 20 MG/DL Creatinine 0.92 MG/DL Random Glucose 271 MG/DL Calcium Level 9.1 MG/DL Sodium Level 144 MEQ/L Potassium Level 3.7 MEQ/L Chloride Level 101 MEQ/L Carbon Dioxide Level 36.1 MEQ/L Anion Gap 7 MEQ/L Estimat Glomerular Filtration Rate 78 ML/MIN Imaging Last Impressions Chest X-Ray 10/02/17 0000 Signed Impressions: Service Date/Time: Monday, October 02, 2017 10:32 - CONCLUSION: Stable chest. ET tube above the yoselyn. Ousmane Peraza MD CT Angiography 09/30/17 1723 Signed Impressions: Service Date/Time: Saturday, September 30, 2017 17:50 - CONCLUSION: 1. Diffuse bilateral pulmonary infiltrates with cylindrical bronchiectasis. 2. No pulmonary embolus. Dre Moseley Jr., MD Objective Remarks GENERAL: Well-developed middle-aged female patient intubated SKIN: Focused skin assessment warm/dry. HEAD: Atraumatic. Normocephalic. EYES: Pupils equal and round. No scleral icterus. No injection or drainage. ENT: No nasal bleeding or discharge. Mucous membranes pink and moist. NECK: Trachea midline. No JVD. CARDIOVASCULAR: Tachycardic. No murmur appreciated. RESPIRATORY: Mild accessory muscle use. Bilateral basilar rales. GASTROINTESTINAL: Abdomen soft, non-tender, nondistended. Hepatic and splenic margins not palpable. MUSCULOSKELETAL: No obvious deformities. No clubbing. No cyanosis. No edema. Neuro: Intubated A/P Assessment and Plan VDRF Diffuse b/l pilm infiltrates Anemia Migraine headaches GERD History of MS Plan Neuro: On Diprivan/Versed infusion for sedation. Daily sedation vacation Pulm: Continue with vent support keep sat >92% Bronchodilators, ICU vent bundle. On Solumederol 40mg Q6 Start SBT daily as elodia CV: Monitor HR and BP keep MAP>65mmHg For 2D to eval LV function : Monitor renal function, I/O's, electrolytes replacement per protocol. Diurese with Lasix 40mg x1 GI: On Pepcid for GI prophylaxis. On tube feeds-Glucerna 1.5 with goal rate 45ml /hr ID: Continue with abx ( Zosyn, Azithromycin, Vanco) monitor for signs of infections ( Fever, WBC) Check strep pneumonia and Legionella urinary Ag, check nasal washing r/o influenza. BC 09/30: NGTD, sputum cx: normal resp stephon Heme: Monitor CBC Endo: SSI for glycemic control, add Levemir [id number] GI prophylaxis- on Pepcid DVT prophylaxis- SCD, Heparin SQ. Level 3 Tessa Burleson MD Oct 03, 2017 10:04
[2017-10-03] MEDS ORDERED: FUROSEMIDE 40 MG/4 ML VIAL IV PUSH ONE (10:15)
[2017-10-03] MEDS: INSULIN DETEMIR 100 UNITS/ML VIAL SQ SCH ×2 (11:08→20:51)
--- NOTE | 2017-10-03 15:25 | ECHRPT ---
Indication: eval lv function CONCLUSIONS The left ventricular systolic function is normal with an estimated ejection fraction in the range of 60-65%. Normal left ventricular size. Wall thickness is normal. No regional wall motion abnormalities are present. There is mild tricuspid valve regurgitation. The estimated pulmonary arterial pressure is 52.8 mmHg. Trivial pulmonary valve regurgitation. BP: 109 / 77 HR: 97 Rhythm: Sinus MEASUREMENTS (Male / Female) Normal Values Technical Quality:Fair 2D ECHO LV Diastolic Diameter PLAX 3.9 cm 4.2 - 5.9 / 3.9 - 5.3 cm LV Systolic Diameter PLAX 2.5 cm IVS Diastolic Thickness 1.0 cm 0.6 - 1.0 / 0.6 - 0.9 cm LVPW Diastolic Thickness 1.0 cm 0.6 - 1.0 / 0.6 - 0.9 cm LV Relative Wall Thickness 0.5 RV Internal Dim ED PLAX 2.8 cm LVOT Diameter 1.8 cm LA Systolic Diameter LX 2.3 cm 3.0 - 4.0 / 2.7 - 3.8 cm LV Ejection Fraction MOD 4C 61.2 % LV Cardiac Index MOD 4C 3090.7 cm/minm LV Ejection Fraction 4C AL 63.2 % LV Cardiac Index 4C AL 3311.3 cm/minm M-MODE Aortic Root Diameter MM 2.2 cm LA Systolic Diameter MM 2.3 cm LA Ao Ratio MM 1.0 AV Cusp Separation MM 1.8 cm DOPPLER AV Peak Velocity 115.0 cm/s AV Peak Gradient 5.3 mmHg LVOT Peak Velocity 87.9 cm/s LVOT Peak Gradient 3.1 mmHg AV Area Cont Eq pk 1.9 cm LV E' Lateral Velocity 6.4 cm/s LV E' Septal Velocity 6.2 cm/s TR Peak Velocity 327.0 cm/s TR Peak Gradient 42.8 mmHg Right Atrial Pressure 10.0 mmHg Pulmonary Artery Systolic Pressu 52.8 mmHg Right Ventricular Systolic Press 52.8 mmHg PV Peak Velocity 93.7 cm/s PV Peak Gradient 3.5 mmHg FINDINGS LEFT VENTRICLE The left ventricular systolic function is normal with an estimated ejection fraction in the range of 60-65%. Normal left ventricular size. Wall thickness is normal. No regional wall motion abnormalities are present. RIGHT VENTRICLE Normal right ventricular size and systolic function. LEFT ATRIUM The left atrial size is normal. RIGHT ATRIUM The right atrial size is normal. ATRIAL SEPTUM Normal atrial septal thickness without atrial level shunting by limited color doppler interrogation. AORTA The aortic root and proximal ascending aorta are normal in size on limited imaging. MITRAL VALVE Structurally normal mitral valve. No mitral valve stenosis or regurgitation. AORTIC VALVE Trileaflet aortic valve. No aortic valve stenosis or regurgitation. TRICUSPID VALVE Structurally normal tricuspid valve. There is mild tricuspid valve regurgitation. The estimated pulmonary arterial pressure is 52.8 mmHg. PULMONARY VALVE Trivial pulmonary valve regurgitation. VESSELS The inferior vena cava was not well visualized. PERICARDIUM No pericardial effusion. Elijah Rodriguez MD (Electronically Signed) Final Date:03 October 2017 15:23
[2017-10-03] MEDS: AZITHROMYCIN INJ 500 MG in SODIUM CHLOR 0.9% 250 ML INJ 250 ML IV SCH (20:51)
[2017-10-04] VITALS (22 sets, daily range): BP systolic 108–156; BP diastolic 64–91; PULSE 65–80; RESP 16–32; TEMP 97–98.4; O2SAT 98–100
[2017-10-04] MEDS: methylPREDNISolone SOD SUCC 40 MG/1 ML VIAL IV PUSH SCH ×3 (00:01→20:10)
[2017-10-04] MEDS: INSULIN NovoLIN REGULAR SUPPLEMENTAL SCALE SQ SCH ×6 (01:55→23:21)
[2017-10-04] MEDS: PIPERACIL-TAZO 4.5 GM PREMIX 100 ML IV SCH ×4 (01:55→20:09)
[2017-10-04] MEDS: CHLORHEXIDINE GLUCONATE 2 % 1 PACK (2 CLOTHS) TOP SCH (01:56)
[2017-10-04] MEDS: PROPOFOL 1000 MG/100 ML INJ 100 ML IV PRN ×6 (01:58→23:21)
[2017-10-04] MEDS: RESP: ALBUTEROL 2.5 MG/IPRATROPIUM 0.5 MG NEB (SCH) INH ×5 (03:53→19:26)
[2017-10-04 06:07] LABS: AUTOMATED NEUTROPHIL # 15.8 TH/MM3 (1.8-7.7); BASOPHIL % 0.2 % (0.0-2.0); HEMATOCRIT 36.9 % (35.0-46.0); HEMOGLOBIN 11.2 GM/DL (11.6-15.3); LYMPH % 9.4 % (9.0-44.0); LYMPHOCYTE # 1.8 TH/MM3 (1.0-4.8); MEAN CELL VOLUME 78.2 FL (80.0-100.0); MEAN CORPUSCULAR HEMOGLOBIN 23.6 PG (27.0-34.0); MEAN CORPUSCULAR HGB CONC 30.2 % (32.0-36.0); MEAN PLATELET VOLUME 9.3 FL (7.0-11.0); MONO % 5.7 % (0.0-8.0); MONOCYTE # 1.1 TH/MM3 (0-0.9); NEUT % 84.7 % (16.0-70.0); PLATELET COUNT 275 TH/MM3 (150-450); RED BLOOD COUNT 4.72 MIL/MM3 (4.00-5.30); RED CELL DISTRIBUTION WIDTH 16.7 % (11.6-17.2); WHITE BLOOD COUNT 18.6 TH/MM3 (4.0-11.0)
[2017-10-04] MEDS: HEPARIN SODIUM - SQ 10,000 UNITS/ML VIAL SQ SCH ×3 (06:33→20:09)
[2017-10-04 06:37] LABS: ALBUMIN 2.9 GM/DL (3.4-5.0); ALT (GPT) 32 U/L (10-53); AST (GOT) 16 U/L (15-37); BLOOD UREA NITROGEN 28 MG/DL (7-18); CALCIUM 9.1 MG/DL (8.5-10.1); CHLORIDE 101 MEQ/L (98-107); GLOMERULAR FILTRATION RATE 80 ML/MIN (>89); GLUCOSE,RANDOM 222 MG/DL (74-106); PHOSPHORUS 3.3 MG/DL (2.5-4.9); SODIUM (NA) 142 MEQ/L (136-145)
[2017-10-04 06:38] LABS: ALKALINE PHOSPHATASE 92 U/L (45-117); RANDOM VANCOMYCIN 6.5 COMMENT; TOTAL BILIRUBIN ADULT 0.3 MG/DL (0.2-1.0)
[2017-10-04] MEDS: DOCUSATE SODIUM 50 MG/SENNA 8.6 MG TAB PO SCH ×2 (08:50→20:10)
[2017-10-04] MEDS: FAMOTIDINE 20 MG/2 ML VIAL IV PUSH SCH ×2 (08:50→20:09)
[2017-10-04] MEDS: ASPIRIN 81 MG CHEW TAB PO SCH (08:50)
[2017-10-04] MEDS: BACLOFEN 10 MG TAB PO SCH ×3 (08:50→18:00)
[2017-10-04] MEDS: FERROUS SULFATE 325 MG (65 MG ELEMENTAL IRON) TAB PO SCH (08:50)
[2017-10-04] MEDS: INSULIN DETEMIR 100 UNITS/ML VIAL SQ SCH ×2 (08:51→20:10)
[2017-10-04] MEDS: SODIUM CHLORIDE 0.9% FLUSH 10 ML FLUSH IV FLUSH SCH ×2 (09:00→20:09)
--- NOTE | 2017-10-04 09:27 | HHI.CCPN ---
Subjective Remarks/Hospital Course 52-year-old unfortunate female patient with history of MS, previous stroke, chronic lung disease, presents to the ER today because she has had worsening dyspnea on exertion end shortness of breath with getting up from bed. She has also been coughing. She states that similar symptoms have happened before and she has been like this since October last year. She states that she has had "fluid in the lungs". She denies any chest pains, fevers, or other symptoms. She is very poor historian. 10/01 Patient was on non rebreather however she was hypoxic, tachycardic, tachypneic and using her accessory muscle for respiration she was subsequently intubated and placed on mechanical ventilation. 10/02 Patient is sedated and intubated. Afebrile. 10/03 No events overnight. Sedated with Versed and Diprivan drips. Afebrile. Tolerating tube feeds. 10/04 Patient remains intubated and sedated with Diprivan. Off Versed. Afebrile Objective Vital Signs Date Time Temp Pulse Resp B/P (MAP) Pulse Ox O2 Delivery O2 Flow Rate FiO2 10/04/17 08:05 100 35 10/04/17 08:00 69 10/04/17 08:00 98.3 20 155/83 (107) 10/04/17 03:58 Ventilator 10/01/17 07:46 15.00 Intake and Output 10/04/17 10/04/17 10/05/17 08:00 16:00 00:00 Intake Total 923 ml Output Total 350 ml Balance 573 ml Result Diagram: 10/04/17 0525 10/04/17 0525 Other Results Laboratory Tests Test 10/04/17 05:25 White Blood Count 18.6 TH/MM3 Red Blood Count 4.72 MIL/MM3 Hemoglobin 11.2 GM/DL Hematocrit 36.9 % Mean Corpuscular Volume 78.2 FL Mean Corpuscular Hemoglobin 23.6 PG Mean Corpuscular Hemoglobin Concent 30.2 % Red Cell Distribution Width 16.7 % Platelet Count 275 TH/MM3 Mean Platelet Volume 9.3 FL Neutrophils (%) (Auto) 84.7 % Lymphocytes (%) (Auto) 9.4 % Monocytes (%) (Auto) 5.7 % Eosinophils (%) (Auto) 0.0 % Basophils (%) (Auto) 0.2 % Neutrophils # (Auto) 15.8 TH/MM3 Lymphocytes # (Auto) 1.8 TH/MM3 Monocytes # (Auto) 1.1 TH/MM3 Eosinophils # (Auto) 0.0 TH/MM3 Basophils # (Auto) 0.0 TH/MM3 CBC Comment AUTO DIFF Differential Comment AUTO DIFF CONFIRMED Platelet Estimate NORMAL Platelet Morphology Comment NORMAL Blood Urea Nitrogen 28 MG/DL Creatinine 0.90 MG/DL Random Glucose 222 MG/DL Total Protein 8.0 GM/DL Albumin 2.9 GM/DL Calcium Level 9.1 MG/DL Phosphorus Level 3.3 MG/DL Alkaline Phosphatase 92 U/L Aspartate Amino Transf (AST/SGOT) 16 U/L Alanine Aminotransferase (ALT/SGPT) 32 U/L Total Bilirubin 0.3 MG/DL Sodium Level 142 MEQ/L Potassium Level 4.0 MEQ/L Chloride Level 101 MEQ/L Carbon Dioxide Level 35.0 MEQ/L Anion Gap 6 MEQ/L Estimat Glomerular Filtration Rate 80 ML/MIN Random Vancomycin Level 6.5 COMMENT Imaging Last Impressions Chest X-Ray 10/02/17 0000 Signed Impressions: Service Date/Time: Monday, October 02, 2017 10:32 - CONCLUSION: Stable chest. ET tube above the yoselyn. Ousmane Peraza MD CT Angiography 09/30/17 1723 Signed Impressions: Service Date/Time: Saturday, September 30, 2017 17:50 - CONCLUSION: 1. Diffuse bilateral pulmonary infiltrates with cylindrical bronchiectasis. 2. No pulmonary embolus. Dre Moseley Jr., MD Objective Remarks GENERAL: Well-developed middle-aged female patient intubated SKIN: Focused skin assessment warm/dry. HEAD: Atraumatic. Normocephalic. EYES: Pupils equal and round. No scleral icterus. No injection or drainage. ENT: No nasal bleeding or discharge. Mucous membranes pink and moist. NECK: Trachea midline. No JVD. CARDIOVASCULAR: Tachycardic. No murmur appreciated. RESPIRATORY: Mild accessory muscle use. Bilateral basilar rales. GASTROINTESTINAL: Abdomen soft, non-tender, nondistended. Hepatic and splenic margins not palpable. MUSCULOSKELETAL: No obvious deformities. No clubbing. No cyanosis. No edema. Neuro: Intubated A/P Assessment and Plan VDRF Diffuse b/l pilm infiltrates Anemia Migraine headaches GERD History of MS Plan Neuro: On Diprivan infusion for sedation. Daily sedation vacation. Off Versed Pulm: Continue with vent support keep sat >92% Change PRVC/AC RR 16, TV 500, PEEP:5, FIO2: 40% Bronchodilators, ICU vent bundle. Decrease Solumederol 40mg Q12 SBT daily as elodia CV: Monitor HR and BP keep MAP>65mmHg Echo showed EF 60-65% : Monitor renal function, I/O's, electrolytes replacement per protocol. Diurese with Lasix 40mg BID GI: On Pepcid for GI prophylaxis. On tube feeds-Glucerna 1.5 with goal rate 45ml /hr ID: Continue with abx ( Zosyn, Azithromycin, Vanco) monitor for signs of infections ( Fever, WBC) strep pneumonia, Legionella urinary Ag, Influenza screening all negative BC 09/30: NGTD, sputum cx: normal resp stephon Heme: Monitor CBC Endo: SSI for glycemic control, Levemir 5uQ12 GI prophylaxis- on Pepcid DVT prophylaxis- SCD, Heparin SQ. Level 3 Tessa Burleson MD Oct 04, 2017 09:27
[2017-10-04] MEDS: VANCOMYCIN 1,500 MG/NS 500 ML IV SCH ×2 (10:56)
[2017-10-04] MEDS: FUROSEMIDE 40 MG/5 ML UNIT DOSE CUP NG SCH ×2 (10:58→18:00)
[2017-10-04] MEDS: AZITHROMYCIN INJ 500 MG in SODIUM CHLOR 0.9% 250 ML INJ 250 ML IV SCH (20:09)
[2017-10-04] MEDS: MIDAZOLAM 100 MG/100 ML INJ 100 ML IV PRN (20:11)
[2017-10-05] VITALS (27 sets, daily range): BP systolic 114–138; BP diastolic 68–83; PULSE 51–71; RESP 16–22; TEMP 97.2–98.5; O2SAT 99–100
[2017-10-05] MEDS: INSULIN NovoLIN REGULAR SUPPLEMENTAL SCALE SQ SCH ×6 (02:00→21:41)
[2017-10-05] MEDS: PROPOFOL 1000 MG/100 ML INJ 100 ML IV PRN (02:50)
[2017-10-05] MEDS: CHLORHEXIDINE GLUCONATE 2 % 1 PACK (2 CLOTHS) TOP SCH (04:00)
[2017-10-05] MEDS: HEPARIN SODIUM - SQ 10,000 UNITS/ML VIAL SQ SCH ×3 (05:57→20:11)
[2017-10-05] MEDS: VANCOMYCIN 1,500 MG/NS 500 ML IV SCH ×4 (05:57→23:32)
[2017-10-05] MEDS: PIPERACIL-TAZO 4.5 GM PREMIX 100 ML IV SCH ×4 (05:57→20:11)
[2017-10-05 07:02] LABS: EOSINOPHIL # 0.1 TH/MM3 (0-0.4); EOSINOPHIL % 0.3 % (0.0-4.0); HEMATOCRIT 37.1 % (35.0-46.0); HEMOGLOBIN 11.6 GM/DL (11.6-15.3); LYMPH % 13.2 % (9.0-44.0); LYMPHOCYTE # 2.3 TH/MM3 (1.0-4.8); MEAN CELL VOLUME 78.4 FL (80.0-100.0); MEAN CORPUSCULAR HEMOGLOBIN 24.5 PG (27.0-34.0); MEAN CORPUSCULAR HGB CONC 31.2 % (32.0-36.0); MEAN PLATELET VOLUME 9.1 FL (7.0-11.0); MONO % 6.4 % (0.0-8.0); MONOCYTE # 1.1 TH/MM3 (0-0.9); NEUT % 80.1 % (16.0-70.0); PLATELET COUNT 258 TH/MM3 (150-450); RED BLOOD COUNT 4.73 MIL/MM3 (4.00-5.30); RED CELL DISTRIBUTION WIDTH 16.2 % (11.6-17.2); WHITE BLOOD COUNT 17.5 TH/MM3 (4.0-11.0)
--- NOTE | 2017-10-05 07:26 | HHI.CCPN ---
Subjective Remarks/Hospital Course 52-year-old unfortunate female patient with history of MS, previous stroke, chronic lung disease, presents to the ER today because she has had worsening dyspnea on exertion end shortness of breath with getting up from bed. She has also been coughing. She states that similar symptoms have happened before and she has been like this since October last year. She states that she has had "fluid in the lungs". She denies any chest pains, fevers, or other symptoms. She is very poor historian. 10/01 Patient was on non rebreather however she was hypoxic, tachycardic, tachypneic and using her accessory muscle for respiration she was subsequently intubated and placed on mechanical ventilation. 10/02 Patient is sedated and intubated. Afebrile. 10/03 No events overnight. Sedated with Versed and Diprivan drips. Afebrile. Tolerating tube feeds. 10/04 Patient remains intubated and sedated with Diprivan. Off Versed. Afebrile 10/05 Patient remains sedated and intubated. Had Liquid stool overnight. Objective Vital Signs Date Time Temp Pulse Resp B/P (MAP) Pulse Ox O2 Delivery O2 Flow Rate FiO2 10/05/17 04:07 100 35 10/05/17 00:00 97.2 67 22 124/80 (95) 10/04/17 03:58 Ventilator 10/01/17 07:46 15.00 Result Diagram: 10/05/17 0606 10/04/17 0525 Other Results Laboratory Tests Test 10/05/17 06:06 White Blood Count 17.5 TH/MM3 Red Blood Count 4.73 MIL/MM3 Hemoglobin 11.6 GM/DL Hematocrit 37.1 % Mean Corpuscular Volume 78.4 FL Mean Corpuscular Hemoglobin 24.5 PG Mean Corpuscular Hemoglobin Concent 31.2 % Red Cell Distribution Width 16.2 % Platelet Count 258 TH/MM3 Mean Platelet Volume 9.1 FL Neutrophils (%) (Auto) 80.1 % Lymphocytes (%) (Auto) 13.2 % Monocytes (%) (Auto) 6.4 % Eosinophils (%) (Auto) 0.3 % Basophils (%) (Auto) 0.0 % Neutrophils # (Auto) 14.0 TH/MM3 Lymphocytes # (Auto) 2.3 TH/MM3 Monocytes # (Auto) 1.1 TH/MM3 Eosinophils # (Auto) 0.1 TH/MM3 Basophils # (Auto) 0.0 TH/MM3 CBC Comment AUTO DIFF Imaging Last Impressions Chest X-Ray 10/02/17 0000 Signed Impressions: Service Date/Time: Monday, October 02, 2017 10:32 - CONCLUSION: Stable chest. ET tube above the yoselyn. Ousmane Peraza MD CT Angiography 09/30/17 1723 Signed Impressions: Service Date/Time: Saturday, September 30, 2017 17:50 - CONCLUSION: 1. Diffuse bilateral pulmonary infiltrates with cylindrical bronchiectasis. 2. No pulmonary embolus. Dre Moseley Jr., MD Objective Remarks GENERAL: Well-developed middle-aged female patient intubated SKIN: Focused skin assessment warm/dry. HEAD: Atraumatic. Normocephalic. EYES: Pupils equal and round. No scleral icterus. No injection or drainage. ENT: No nasal bleeding or discharge. Mucous membranes pink and moist. NECK: Trachea midline. No JVD. CARDIOVASCULAR: Tachycardic. No murmur appreciated. RESPIRATORY: Mild accessory muscle use. Bilateral basilar rales. GASTROINTESTINAL: Abdomen soft, non-tender, nondistended. Hepatic and splenic margins not palpable. MUSCULOSKELETAL: No obvious deformities. No clubbing. No cyanosis. No edema. Neuro: Intubated A/P Assessment and Plan VDRF Diffuse b/l pilm infiltrates Anemia Migraine headaches GERD History of MS Plan Neuro: On Diprivan/Versed infusion overnight for sedation. Daily sedation vacation. Patient withdraws to pain but doesn't follow commands will check CT brain, EEG Neuro eval. Pulm: Continue with vent support keep sat >92% On PRVC/AC RR 16, TV 500, PEEP:5, FIO2: 35% Bronchodilators, ICU vent bundle. Solumederol 40mg Q12 SBT daily as elodia. Check CXR CV: Monitor HR and BP keep MAP>65mmHg Echo showed EF 60-65% : Monitor renal function, I/O's, electrolytes replacement per protocol. d/c lasix GI: On Pepcid for GI prophylaxis. On tube feeds-Glucerna 1.5 @ 45ml/hr ID: Continue with abx ( Zosyn, Azithromycin, Vanco) monitor for signs of infections ( Fever, WBC) strep pneumonia, Legionella urinary Ag, Influenza screening all negative. BC 09/30: NGTD, sputum cx: normal resp stephon Check C-diff PCR r/o c-diff Heme: Monitor CBC Endo: SSI for glycemic control, Levemir 5uQ12 GI prophylaxis- on Pepcid DVT prophylaxis- SCD, Heparin SQ. Level 3 Tessa Burleson MD Oct 05, 2017 07:26
[2017-10-05 08:08] LABS: BANDS 8 % (0-6); LYMPHOCYTES 10 % (9-44); MONOCYTES 6 % (0-8); MYELOCYTES 1 % (0-0); NEUTROPHIL # MANUAL DIFF 14.7 TH/MM3 (1.8-7.7); POLYS (SEG NEUTROPHILS) 75 % (16-70)
[2017-10-05] MEDS: INSULIN DETEMIR 100 UNITS/ML VIAL SQ SCH ×2 (09:00→21:00)
[2017-10-05] MEDS: DOCUSATE SODIUM 50 MG/SENNA 8.6 MG TAB PO SCH ×2 (09:00→20:13)
--- NOTE | 2017-10-05 09:00 | RADRPT ---
EXAM DATE/TIME: 10/05/2017 07:50 [facility] COMPARISON: CHEST SINGLE AP, October 02, 2017, 10:32. INDICATIONS : Shortness of breath. MEDICAL HISTORY : Hypertension. Cardiovascular disease. SURGICAL HISTORY : Hysterectomy. ENCOUNTER: Subsequent ACUITY: 4 - 6 days PAIN SCORE: Non-responsive. LOCATION: Bilateral chest FINDINGS: The heart is normal in size. There are patchy bilateral infiltrates concerning for pneumonia. There a re minimal bilateral effusions. The ET tube and NG tube are in good position. The examination is mary lar to the previous dated 10/02/17. CONCLUSION: 1. Small bilateral effusions with patchy areas of infiltrate. There are air bronchograms seen on the left. Exam is concerning for pneumonia. Syed Mendez MD on October 05, 2017 at 8:57 Board Certified Radiologist. This report was verified electronically.
[2017-10-05 09:39] LABS: BICARBONATE 32.9 MEQ/L (21.0-32.0); CALCIUM 9.5 MG/DL (8.5-10.1); CREATININE 0.79 MG/DL (0.50-1.00)
--- NOTE | 2017-10-05 09:51 | RADRPT ---
EXAM DATE/TIME: 10/05/2017 09:32 [facility] COMPARISON: No previous studies available for comparison. INDICATIONS : Altered Mental Status, unresponsiveness, possible stroke. RADIATION DOSE: 42.34 CTDIvol (mGy) MEDICAL HISTORY : Cerebrovascular disease. Cardiovascular disease Hypertension. SURGICAL HISTORY : Non-responsive. ENCOUNTER: Initial ACUITY: 1 day PAIN SCALE: 0/10 LOCATION: cranial TECHNIQUE: Multiple contiguous axial images were obtained of the head. Using automated exposure control and adj ustment of the mA and/or kV according to patient size, radiation dose was kept as low as reasonably a chievable to obtain optimal diagnostic quality images. DICOM format image data is available electro nically for review and comparison. FINDINGS: CEREBRUM: The ventricles are normal for age. No evidence of midline shift, mass lesion, hemorrhage or acute in farction. No extra-axial fluid collections are seen. POSTERIOR FOSSA: The cerebellum and brainstem are intact. The 4th ventricle is midline. The cerebellopontine angle i s unremarkable. EXTRACRANIAL: The visualized portion of the orbits is intact. SKULL: The calvaria is intact. No evidence of skull fracture. CONCLUSION: Negative for acute process. Dajuan Mendez MD FACR on October 05, 2017 at 9:48 Board Certified Radiologist. This report was verified electronically.
[2017-10-05] MEDS: methylPREDNISolone SOD SUCC 40 MG/1 ML VIAL IV PUSH SCH ×2 (10:40→20:11)
[2017-10-05] MEDS: FERROUS SULFATE 325 MG (65 MG ELEMENTAL IRON) TAB PO SCH (10:41)
[2017-10-05] MEDS: BACLOFEN 10 MG TAB PO SCH ×3 (10:41→17:53)
[2017-10-05] MEDS: ASPIRIN 81 MG CHEW TAB PO SCH (10:41)
[2017-10-05] MEDS: FAMOTIDINE 20 MG/2 ML VIAL IV PUSH SCH ×2 (10:41→20:11)
[2017-10-05] MEDS: SODIUM CHLORIDE 0.9% FLUSH 10 ML FLUSH IV FLUSH SCH ×2 (10:42→20:13)
--- NOTE | 2017-10-05 12:42 | MB ---
cc: SPENSER JOSHI MD DATE OF CONSULTATION: 10/05/[address] Burleson. REASON FOR CONSULTATION Pneumonia and leukocytosis. HISTORY OF PRESENT ILLNESS This is a 52-year-old black female who presented to the emergency department with hypoxia and respiratory distress. The patient has history of multiple sclerosis. She was noted to have cough. She has had multiple recent hospitalizations for pneumonia over the past few months including two at [facility] before this current admission here at [facility]. The patient is intubated and on the ventilator. Information is obtained from the medical record. Her son is also at bedside and he did give some information about her. The patient was afebrile on presentation and the white count was 11.1. The chest x-ray showed diffuse pulmonary vascular congestion. CT scan of the lungs showed diffuse bilateral pulmonary infiltrates. The patient was admitted and started on antibiotics. Cultures were taken including blood cultures on 09/30 and sputum culture on 10/01. Influenza testing was negative. The white blood cell count climbed up to 21.1 on 10/02 and currently is 17.5. The patient is intubated and on the ventilator. This consultation is requested for pneumonia. Repeat chest x-ray today shows small bilateral effusions with patchy areas of infiltrate. CT scan of the head was negative. The patient has thick tracheal secretion upon suctioning. However, not much secretions. PAST MEDICAL HISTORY 1. Multiple sclerosis. The patient has not been on medication for the past 2 years, per her son's report. 2. Hypertension. 3. Gastroesophageal reflux. 4. Chronic lung disease. 5. Hysterectomy. ALLERGIES LASIX, LATEX. MEDICATIONS 1. Vancomycin. 2. Azithromycin. 3. Piperacillin / tazobactam. 4. Methylprednisolone. 5. Levemir. 6. Pepcid. 7. Carolyn-Colace. 8. DuoNeb. SOCIAL HISTORY No tobacco, no illicit drugs. Rare alcohol use. FAMILY HISTORY Noncontributory. REVIEW OF SYSTEMS Unable to obtain. PHYSICAL EXAMINATION GENERAL: This is a well-developed female who is on the ventilator and is unresponsive. VITAL SIGNS: Temperature 97.2. Her BP is 105/70, heart rate 84, respirations per ventilator. HEENT: Head atraumatic. Extraocular movements cannot be assessed. The patient is intubated. Oropharynx mucosa appears moist. NECK: No swelling or adenopathy. LUNGS: Coarse rhonchi bilateral. HEART: Regular, S1-S2 without audible murmurs, rubs or gallops. ABDOMEN: Bowel sounds present, soft, no tenderness appreciated. RECTAL: Not performed. EXTREMITIES: No clubbing or cyanosis or edema. SKIN: No rash. NEURO: Unable to assess. PSYCHE: Unable to assess. LABORATORY DATA WBC 17.5, platelets 258, 80% neutrophils, differential includes 8% bands, hemoglobin 11.6, BUN 26, creatinine 0.79, estimated GFR 93. IMPRESSION 1. Pneumonia. The patient with abnormal chest x-ray and admitted with respiratory distress and required intubation. 2. Leukocytosis secondary to infection. However, the patient is on steroids which could be also contributing. 3. Acute respiratory failure. 4. Multiple sclerosis. RECOMMENDATIONS 1. Continue vancomycin. 2. Continue azithromycin. 3. Continue piperacillin/tazobactam. 4. Monitor urine Legionella and pneumococcal antigen. 5. Monitor new sputum culture which is being obtained today. 6. Follow white blood cell count. The patient's progress will be monitored and further recommendations will be made upon followup. Spenser Joshi MD FD/SHITAL /11:39 AM /12:23 PM MTDKeily
--- NOTE | 2017-10-05 17:17 | MB ---
cc: IMELDA CARODNA MD DATE OF CONSULTATION 10/05/2017 REASON FOR CONSULTATION Encephalopathy. HISTORY OF THE PRESENT ILLNESS Ms. Garcia is a 52-year-old -[place] female with past medical history of MS, previous stroke, COPD, chronic lung disease presented to [facility] on 09/30/2017 emergency room said she had worsening shortness of breath , cough. The patient is intubated and sedated thus medical history is obtained from medical records. The patient was on nonrebreather, initially hypoxic tachycardiac and then she needed subsequently intubated, placed on mechanical intubation. She is treated for pneumonia because there are diffuse pneumonia infiltrates. Currently on Diprivan and Versed with daily sedation vacation. The patient withdraws to pain but does not follow commands, thus neurology is consulted for evaluation. REVIEW OF SYSTEMS 12-point review of systems negative except for what is stated in the HPI. PAST MEDICAL HISTORY Review of medical records. ALLERGIES LATEX. FUROSEMIDE. PAST MEDICAL HISTORY 1. Hypertension. 2. Gastroesophageal reflux disease. 3. Migraine. 4. Multiple sclerosis. 5. Chronic lung disease. 6. Questionable lupus. PAST SURGICAL HISTORY Hysterectomy. MEDICATIONS 1. Baclofen. 2. Scopolamine. 3. Meclizine. 4. Lisinopril. 5. Ferrous sulfate. 6. Aspirin 81. FAMILY HISTORY Mother hypertension, diabetes. Father diabetes. SOCIAL HISTORY Never smoked. Socially ethanol. No illicit drugs. PHYSICAL EXAMINATION GENERAL: The patient is sedated and intubated, well-developed AA female. HEENT: Atraumatic, normocephalic. Pupils are equal and round. NECK: Trachea in the midline. No JVD. CARDIOVASCULAR: Sinus tachycardia. RESPIRATORY: Bilateral basilar rales. GASTROINTESTINAL: Soft abdomen not distended. NEUROLOGIC: Intubated and sedated. Pupils 2 mm, bilateral equal. No gaze deviation is noted. The patient is intubated and sedated and pupils are 2 mm. IMAGING - Head CT scan without contrast was negative for any acute process. LABORATORY DATA Diagnostic labs, white blood cells 17.5, hemoglobin 11.6, platelet 258. Sodium, potassium, chloride are within normal. BUN 26, creatinine 0.79, random glucose 216. Normal liver function tests. INR 1.1. DIAGNOSTIC IMPRESSION 1. Encephalopathy - Likely secondary to metabolic / infectious or hypoxic or hypoxemia. 2. Diffuse pulmonary infiltrates. 3. History of migraine headaches. 4. History of MS. PLAN 1. Neurological checks q.1h. 2. EEG. 3. Continue sedation vacation and monitor neurologic status. 4. Continue supportive medical therapy. 5. DVT prophylaxis and GI prophylaxis. Thank you for the opportunity to participate in the care of your patient. id MD ISAI Hyatt/MAR /3:33 PM /4:54 PM MTDD
--- NOTE | 2017-10-05 19:49 | MG ---
cc: RENETTA MISTRY M.D. Lab No: Date: 10/05/2017 Age: Sex: F Race: REQUESTING PHYSICIAN Dr. Burleson INTRODUCTION An EEG was obtained on this 52-year-old patient. The patient is intubated, sedated. DESCRIPTION There is a mixture of beta and delta rhythms bilaterally. There is a lack of alpha activity. Some theta rhythms are present. There are alpha rhythms but predominantly in the anterior head regions. There are no paroxysmal discharges. Photic stimulation disclosed no change. INTERPRETATION Abnormal EEG because of generalized slowing compatible with a moderately severe diffuse disturbance of cerebral function. No epileptiform features present. Renetta Mistry MD OFC/KK /6:56 PM /7:43 PM
[2017-10-05] MEDS: AZITHROMYCIN INJ 500 MG in SODIUM CHLOR 0.9% 250 ML INJ 250 ML IV SCH (20:12)
[2017-10-05] MEDS: SODIUM CHLORIDE 0.9% FLUSH 10 ML FLUSH IV FLUSH PRN (23:32)
[2017-10-06] VITALS (25 sets, daily range): BP systolic 106–152; BP diastolic 11–88; PULSE 56–85; RESP 16–41; TEMP 97.2–99.1; O2SAT 96–100
[2017-10-06] MEDS: INSULIN NovoLIN REGULAR SUPPLEMENTAL SCALE SQ SCH ×6 (02:59→22:39)
[2017-10-06] MEDS: PIPERACIL-TAZO 4.5 GM PREMIX 100 ML IV SCH ×4 (02:59→20:11)
[2017-10-06] MEDS: CHLORHEXIDINE GLUCONATE 2 % 1 PACK (2 CLOTHS) TOP SCH (03:00)
[2017-10-06] MEDS: HEPARIN SODIUM - SQ 10,000 UNITS/ML VIAL SQ SCH ×3 (03:00→20:11)
[2017-10-06 07:42] LABS: AUTOMATED NEUTROPHIL # 14.1 TH/MM3 (1.8-7.7); BASOPHIL % 0.1 % (0.0-2.0); EOSINOPHIL % 0.1 % (0.0-4.0); HEMATOCRIT 35.6 % (35.0-46.0); HEMOGLOBIN 11.3 GM/DL (11.6-15.3); LYMPH % 13.8 % (9.0-44.0); LYMPHOCYTE # 2.4 TH/MM3 (1.0-4.8); MEAN CELL VOLUME 77.7 FL (80.0-100.0); MEAN CORPUSCULAR HEMOGLOBIN 24.6 PG (27.0-34.0); MEAN CORPUSCULAR HGB CONC 31.7 % (32.0-36.0); MEAN PLATELET VOLUME 9.7 FL (7.0-11.0); MONO % 6.5 % (0.0-8.0); MONOCYTE # 1.2 TH/MM3 (0-0.9); NEUT % 79.5 % (16.0-70.0); PLATELET COUNT 282 TH/MM3 (150-450); RED BLOOD COUNT 4.58 MIL/MM3 (4.00-5.30); RED CELL DISTRIBUTION WIDTH 16.8 % (11.6-17.2); WHITE BLOOD COUNT 17.7 TH/MM3 (4.0-11.0)
[2017-10-06] MEDS: ASPIRIN 81 MG CHEW TAB PO SCH (07:54)
[2017-10-06] MEDS: BACLOFEN 10 MG TAB PO SCH ×3 (07:54→18:08)
[2017-10-06] MEDS: DOCUSATE SODIUM 50 MG/SENNA 8.6 MG TAB PO SCH ×2 (07:54→20:10)
[2017-10-06] MEDS: FERROUS SULFATE 325 MG (65 MG ELEMENTAL IRON) TAB PO SCH (07:55)
[2017-10-06] MEDS: methylPREDNISolone SOD SUCC 40 MG/1 ML VIAL IV PUSH SCH ×2 (07:55→20:10)
[2017-10-06] MEDS: SODIUM CHLORIDE 0.9% FLUSH 10 ML FLUSH IV FLUSH SCH ×2 (07:55→20:12)
[2017-10-06] MEDS: FAMOTIDINE 20 MG/2 ML VIAL IV PUSH SCH ×2 (07:55→20:10)
[2017-10-06] MEDS: INSULIN DETEMIR 100 UNITS/ML VIAL SQ SCH ×2 (07:55→20:12)
[2017-10-06 08:26] LABS: BICARBONATE 35.5 MEQ/L (21.0-32.0); CALCIUM 9.6 MG/DL (8.5-10.1); CREATININE 0.86 MG/DL (0.50-1.00)
[2017-10-06 08:30] LABS: BANDS 6 % (0-6); LYMPHOCYTES 8 % (9-44); MONOCYTES 2 % (0-8); MYELOCYTES 3 % (0-0); NEUTROPHIL # MANUAL DIFF 15.9 TH/MM3 (1.8-7.7); POLYS (SEG NEUTROPHILS) 81 % (16-70)
--- NOTE | 2017-10-06 09:38 | HHI.CCPN ---
Subjective Remarks/Hospital Course 52-year-old unfortunate female patient with history of MS, previous stroke, chronic lung disease, presents to the ER today because she has had worsening dyspnea on exertion end shortness of breath with getting up from bed. She has also been coughing. She states that similar symptoms have happened before and she has been like this since October last year. She states that she has had "fluid in the lungs". She denies any chest pains, fevers, or other symptoms. She is very poor historian. 10/01 Patient was on non rebreather however she was hypoxic, tachycardic, tachypneic and using her accessory muscle for respiration she was subsequently intubated and placed on mechanical ventilation. 10/02 Patient is sedated and intubated. Afebrile. 10/03 No events overnight. Sedated with Versed and Diprivan drips. Afebrile. Tolerating tube feeds. 10/04 Patient remains intubated and sedated with Diprivan. Off Versed. Afebrile 10/05 Patient remains sedated and intubated. Had Liquid stool overnight. 10/06 No events overnight. Off sedation awake and follows commands. Afebrile. Objective Vital Signs Date Time Temp Pulse Resp B/P (MAP) Pulse Ox O2 Delivery O2 Flow Rate FiO2 10/06/17 07:36 100 35 10/06/17 06:00 59 10/06/17 04:00 98.5 16 144/88 (106) 10/04/17 03:58 Ventilator Intake and Output 10/06/17 10/06/17 10/07/17 08:00 16:00 00:00 Intake Total 1110 ml Output Total 850 ml Balance 260 ml Result Diagram: 10/06/17 0710 10/06/17 0710 Other Results Laboratory Tests Test 10/06/17 07:10 White Blood Count 17.7 TH/MM3 Red Blood Count 4.58 MIL/MM3 Hemoglobin 11.3 GM/DL Hematocrit 35.6 % Mean Corpuscular Volume 77.7 FL Mean Corpuscular Hemoglobin 24.6 PG Mean Corpuscular Hemoglobin Concent 31.7 % Red Cell Distribution Width 16.8 % Platelet Count 282 TH/MM3 Mean Platelet Volume 9.7 FL Neutrophils (%) (Auto) 79.5 % Lymphocytes (%) (Auto) 13.8 % Monocytes (%) (Auto) 6.5 % Eosinophils (%) (Auto) 0.1 % Basophils (%) (Auto) 0.1 % Neutrophils # (Auto) 14.1 TH/MM3 Lymphocytes # (Auto) 2.4 TH/MM3 Monocytes # (Auto) 1.2 TH/MM3 Eosinophils # (Auto) 0.0 TH/MM3 Basophils # (Auto) 0.0 TH/MM3 CBC Comment AUTO DIFF Differential Total Cells Counted 100 Neutrophils % (Manual) 81 % Band Neutrophils % 6 % Lymphocytes % 8 % Monocytes % 2 % Neutrophils # (Manual) 15.9 TH/MM3 Myelocytes 3 % Differential Comment FINAL DIFF MANUAL Platelet Estimate NORMAL Platelet Morphology Comment ENLARGED Blood Urea Nitrogen 27 MG/DL Creatinine 0.86 MG/DL Random Glucose 176 MG/DL Calcium Level 9.6 MG/DL Sodium Level 143 MEQ/L Potassium Level 4.4 MEQ/L Chloride Level 104 MEQ/L Carbon Dioxide Level 35.5 MEQ/L Anion Gap 4 MEQ/L Estimat Glomerular Filtration Rate 84 ML/MIN Imaging Last Impressions Head CT 10/05/17 0000 Signed Impressions: Service Date/Time: Thursday, October 05, 2017 09:32 - CONCLUSION: Negative for acute process. Dajuan Mendez MD FACR Chest X-Ray 10/05/17 0000 Signed Impressions: Service Date/Time: Thursday, October 05, 2017 07:50 - CONCLUSION: 1. Small bilateral effusions with patchy areas of infiltrate. There are air bronchograms seen on the left. Exam is concerning for pneumonia. Syed Mendez MD CT Angiography 09/30/17 1723 Signed Impressions: Service Date/Time: Saturday, September 30, 2017 17:50 - CONCLUSION: 1. Diffuse bilateral pulmonary infiltrates with cylindrical bronchiectasis. 2. No pulmonary embolus. Dre Moseley Jr., MD Objective Remarks GENERAL: Well-developed middle-aged female patient intubated SKIN: Focused skin assessment warm/dry. HEAD: Atraumatic. Normocephalic. EYES: Pupils equal and round. No scleral icterus. No injection or drainage. ENT: No nasal bleeding or discharge. Mucous membranes pink and moist. NECK: Trachea midline. No JVD. CARDIOVASCULAR: Tachycardic. No murmur appreciated. RESPIRATORY: Mild accessory muscle use. Bilateral basilar rales. GASTROINTESTINAL: Abdomen soft, non-tender, nondistended. Hepatic and splenic margins not palpable. MUSCULOSKELETAL: No obvious deformities. No clubbing. No cyanosis. No edema. Neuro: Intubated, more awake and alert today A/P Assessment and Plan VDRF Pneumonia Anemia Migraine headaches GERD History of MS Plan Neuro: Off sedation. Monitor neuro status. Patient is more awake and alert today CT brain: No acute process EEG: Diffuse slowing, no epileptiform activity Neuro is following- Dr. Parks Pulm: Continue with vent support keep sat >92% On PRVC/AC RR 16, TV 500, PEEP:5, FIO2: 35% Bronchodilators, ICU vent bundle. Solumederol 40mg Q12 SBT daily as elodia. CV: Monitor HR and BP keep MAP>65mmHg Echo showed EF 60-65% : Monitor renal function, I/O's, electrolytes replacement per protocol. GI: On Pepcid for GI prophylaxis. On tube feeds-Glucerna 1.5 @ 45ml/hr ID: Continue with abx ( Zosyn, Azithromycin, Vanco) monitor for signs of infections ( Fever, WBC) strep pneumonia, Legionella urinary Ag, Influenza screening all negative. BC 09/30: NGTD, sputum cx: normal resp stephon Check C-diff PCR r/o c-diff Heme: Monitor CBC Endo: SSI for glycemic control, Levemir 5uQ12 GI prophylaxis- on Pepcid DVT prophylaxis- SCD, Heparin SQ. Level 3 Tessa Burleson MD Oct 06, 2017 09:38
--- NOTE | 2017-10-06 12:19 | HHI.IDPN ---
Note Infectious Disease Note Patient is awake on the vent. On CPAP. Follows commands. Afebrile. Cultures are negative. Presented to the emergency department with hypoxia and respiratory distress. The patient has history of multiple sclerosis. She was noted to have cough. She has had multiple recent hospitalizations for pneumonia over the past few months including two at [facility] before this current admission here at [facility]. CT scan of the lungs showed diffuse bilateral pulmonary infiltrates. The patient was admitted and started on antibiotics. PAST MEDICAL HISTORY 1. Multiple sclerosis. The patient has not been on medication for the past 2 years, per her son's report. 2. Hypertension. 3. Gastroesophageal reflux. 4. Chronic lung disease. 5. Hysterectomy. ALLERGIES LASIX, LATEX. MEDICATIONS 1. Vancomycin. 2. Azithromycin. 3. Piperacillin / tazobactam. Current Medications Medications (Trade) Dose Ordered Sig/Marielos Route PRN Reason Start Time Stop Time Status Last Admin Dose Admin Aspirin (Aspirin Chew) 81 mg DAILY PO 10/01/17 09:00 10/06/17 07:54 Baclofen (Lioresal) 10 mg TID PO 10/01/17 09:00 10/06/17 07:54 Meclizine HCl (Antivert) 12.5 mg BID PRN PO VERTIGO 09/30/17 19:30 Ferrous Sulfate (Ferrous Sulfate) 325 mg DAILY PO 10/01/17 09:00 10/06/17 07:55 Sodium Chloride (NS Flush) 2 ml UNSCH PRN IV FLUSH FLUSH AFTER USING IV ACCESS 09/30/17 19:30 10/05/17 23:32 Sodium Chloride (NS Flush) 2 ml BID IV FLUSH 09/30/17 21:00 10/06/17 07:55 Acetaminophen (Tylenol) 650 mg Q6H PRN PO PAIN 1-5 AND/OR FEVER >101F 09/30/17 19:30 Morphine Sulfate (Morphine Inj) 2 mg Q2H PRN IV PUSH PAIN SCALE 6 TO 10 09/30/17 20:30 Famotidine (Pepcid Inj) 20 mg Q12HR IV PUSH 09/30/17 21:00 10/06/17 07:55 Ondansetron HCl (Zofran Inj) 4 mg Q6H PRN IV PUSH NAUSEA OR VOMITING 09/30/17 19:30 Zolpidem Tartrate (Ambien) 5 mg HS PRN PO INSOMNIA 09/30/17 19:30 Albuterol/ Ipratropium (Duoneb Neb) 1 ampule Q2HR NEB PRN INH WHEEZING 09/30/17 19:30 10/01/17 16:37 Heparin Sodium (Porcine) (Heparin Inj) 5,000 units Q8H SQ 09/30/17 20:00 10/06/17 03:00 Miscellaneous Information 1 Q361D XX 09/30/17 19:30 09/30/17 19:30 Chlorhexidine Gluconate (Chlorhexidine 2% Cloth) Taper DAILY@04 TOP 10/01/17 04:00 09/27/18 03:59 10/05/17 04:00 Chlorhexidine Gluconate (Chlorhexidine 2% Cloth) 3 pack UNSCH PRN TOP HYGIENIC CARE 09/30/17 19:30 Senna/Docusate Sodium (Carolyn-Colace) 1 tab BID PO 09/30/17 21:00 10/06/17 07:54 Magnesium Hydroxide (Milk Of Magnesia Liq) 30 ml Q12H PRN PO Mild constipation 09/30/17 19:30 Sennosides (Senokot) 17.2 mg Q12H PRN PO Moderate constipation 09/30/17 19:30 Bisacodyl (Dulcolax Supp) 10 mg DAILY PRN RECTAL SEVERE CONSITIPATION 09/30/17 19:30 10/02/17 08:18 Lactulose (Lactulose Liq) 30 ml DAILY PRN PO SEVERE CONSITIPATION 09/30/17 19:30 Azithromycin 500 mg/Sodium Chloride 250 ml @ 250 mls/hr Q24H IV 10/01/17 21:00 10/05/17 20:12 Piperacillin Sod/ Tazobactam Sod 100 ml @ 200 mls/hr Q6H IV 09/30/17 21:00 10/06/17 07:55 Miscellaneous (Pill Splitter) 1 ea UNSCH PRN OTHER SEE LABEL COMMENTS 09/30/17 20:30 Potassium Chloride 100 ml @ 50 mls/hr Q2H PRN IV For Potassium 2.8 - 3.2 mEq/L 10/01/17 03:15 Potassium Chloride 100 ml @ 50 mls/hr Q2H PRN IV For Potassium 2.8 - 3.2 mEq/L 10/01/17 03:15 Potassium Bicarb/ Potassium Chloride (K-Lyte Cl Eff) 50 meq UNSCH PRN PO For Potassium 3.3 - 3.5 mEq/L 10/01/17 03:15 Potassium Chloride 100 ml @ 25 mls/hr UNSCH PRN IV For Potassium 3.3 - 3.5 mEq/L 10/01/17 03:15 Potassium Chloride 100 ml @ 50 mls/hr Q2H PRN IV For Potassium 3.3 - 3.5 mEq/L 10/01/17 03:15 Magnesium Sulfate 4 gm/Sodium Chloride 100 ml @ 50 mls/hr UNSCH PRN IV For Magnesium 0.9 - 1.1 mg/dL 10/01/17 03:15 Magnesium Oxide (Mag-Ox) 800 mg UNSCH PRN PO For Magnesium 1.2 - 1.6 mg/dL 10/01/17 03:15 Magnesium Sulfate 2 gm/Sodium Chloride 100 ml @ 50 mls/hr UNSCH PRN IV For Magnesium 1.2 - 1.6 mg/dL 10/01/17 03:15 Potassium Phosphate (K-Phos) 2,000 mg Q4H PRN PO For Phosphorus < 2.5 mg/dL 10/01/17 03:15 Sodium Phosphate 30 mmol/Sodium Chloride 250 ml @ 42 mls/hr UNSCH PRN IV For Phosphorus < 2.5 mg/dL 10/01/17 03:15 Potassium Phosphate (K-Phos) 2,000 mg UNSCH PRN PO/TUBE SEE LABEL COMMENTS 10/01/17 03:15 Potassium Phosphate 30 mmol/ Sodium Chloride 260 ml @ 42 mls/hr UNSCH PRN IV SEE LABEL COMMENTS 10/01/17 03:15 Dextrose (D50w (Vial) Inj) 50 ml UNSCH PRN IV PUSH HYPOGLYCEMIA-SEE COMMENTS 10/01/17 09:30 Glucagon (Glucagon Inj) 1 mg UNSCH PRN OTHER HYPOGLYCEMIA-SEE COMMENTS 10/01/17 09:30 Insulin Human Regular (NovoLIN R SUPPLEMENTAL SCALE) 1 Q4H SQ 10/01/17 10:00 10/06/17 06:31 Pharmacy Profile Note 0 ml @ 0 mls/hr UNSCH OTHER 10/01/17 09:30 Insulin Detemir (Levemir Inj) 5 units Q12HR SQ 10/03/17 10:15 10/06/17 07:55 Vancomycin HCl 1500 mg/Sodium Chloride 515 ml @ 257.5 mls/ hr Q18H IV 10/04/17 11:00 10/05/17 23:32 Miscellaneous Information SPECIFIC LAB TO BE DRAWN:VANCOMY... ONCE ONCE .XX 10/06/17 16:45 10/06/17 16:46 Methylprednisolone Sodium Succinate (SoluMEDROL INJ) 40 mg Q12HR IV PUSH 10/04/17 21:00 10/06/17 07:55 OBJECTIVE: Vital Signs Date Time Temp Pulse Resp B/P (MAP) Pulse Ox O2 Delivery O2 Flow Rate FiO2 10/06/17 09:55 99 35 10/06/17 09:30 60 10/06/17 09:00 61 10/06/17 09:00 61 16 136/76 (96) 100 10/06/17 08:30 71 23 152/84 (106) 98 10/06/17 08:30 71 10/06/17 08:00 35 10/06/17 08:00 98.6 63 18 140/81 (100) 100 10/06/17 08:00 63 10/06/17 07:36 100 35 10/06/17 06:55 35 10/06/17 06:35 35 10/06/17 06:35 35 10/06/17 06:00 59 10/06/17 04:00 35 10/06/17 04:00 60 10/06/17 04:00 98.5 60 16 144/88 (106) 100 10/06/17 03:38 100 35 10/06/17 02:00 58 10/06/17 00:00 97.2 62 16 144/83 (103) 99 10/06/17 00:00 35 10/06/17 00:00 62 10/05/17 23:41 100 35 10/05/17 22:00 53 10/05/17 20:21 100 35 10/05/17 20:00 51 10/05/17 20:00 98.1 51 16 138/81 (100) 100 10/05/17 20:00 35 10/05/17 19:00 59 10/05/17 18:00 68 10/05/17 17:00 55 10/05/17 16:31 100 35 10/05/17 16:00 57 10/05/17 16:00 35 10/05/17 16:00 98.1 57 16 122/78 (93) 100 10/05/17 15:00 54 10/05/17 14:00 54 10/05/17 13:00 57 10/05/17 12:20 100 35 Laboratory Tests Test 10/05/17 06:06 10/06/17 07:10 White Blood Count 17.5 TH/MM3 17.7 TH/MM3 Red Blood Count 4.73 MIL/MM3 4.58 MIL/MM3 Hemoglobin 11.6 GM/DL 11.3 GM/DL Hematocrit 37.1 % 35.6 % Mean Corpuscular Volume 78.4 FL 77.7 FL Mean Corpuscular Hemoglobin 24.5 PG 24.6 PG Mean Corpuscular Hemoglobin Concent 31.2 % 31.7 % Red Cell Distribution Width 16.2 % 16.8 % Platelet Count 258 TH/MM3 282 TH/MM3 Mean Platelet Volume 9.1 FL 9.7 FL Neutrophils (%) (Auto) 80.1 % 79.5 % Lymphocytes (%) (Auto) 13.2 % 13.8 % Monocytes (%) (Auto) 6.4 % 6.5 % Eosinophils (%) (Auto) 0.3 % 0.1 % Basophils (%) (Auto) 0.0 % 0.1 % Neutrophils # (Auto) 14.0 TH/MM3 14.1 TH/MM3 Lymphocytes # (Auto) 2.3 TH/MM3 2.4 TH/MM3 Monocytes # (Auto) 1.1 TH/MM3 1.2 TH/MM3 Eosinophils # (Auto) 0.1 TH/MM3 0.0 TH/MM3 Basophils # (Auto) 0.0 TH/MM3 0.0 TH/MM3 CBC Comment AUTO DIFF AUTO DIFF Differential Total Cells Counted 100 100 Neutrophils % (Manual) 75 % 81 % Band Neutrophils % 8 % 6 % Lymphocytes % 10 % 8 % Monocytes % 6 % 2 % Neutrophils # (Manual) 14.7 TH/MM3 15.9 TH/MM3 Myelocytes 1 % 3 % Differential Comment FINAL DIFF MANUAL FINAL DIFF MANUAL Platelet Estimate NORMAL NORMAL Platelet Morphology Comment NORMAL ENLARGED Laboratory Tests Test 10/05/17 06:06 10/06/17 07:10 Blood Urea Nitrogen 26 MG/DL 27 MG/DL Creatinine 0.79 MG/DL 0.86 MG/DL Random Glucose 216 MG/DL 176 MG/DL Calcium Level 9.5 MG/DL 9.6 MG/DL Sodium Level 142 MEQ/L 143 MEQ/L Potassium Level 4.5 MEQ/L 4.4 MEQ/L Chloride Level 103 MEQ/L 104 MEQ/L Carbon Dioxide Level 32.9 MEQ/L 35.5 MEQ/L Anion Gap 6 MEQ/L 4 MEQ/L Estimat Glomerular Filtration Rate 93 ML/MIN 84 ML/MIN Microbiology Date/Time Source Procedure Growth Status 10/05/17 11:40 Sputum Endotracheal Gram Stain - Final Resulted 10/05/17 11:40 Sputum Endotracheal Sputum Culture - Preliminary LIGHT GROWTH NORMAL RESPIRATORY FAM... Resulted IMAGING: Head CT 10/05/17 0000 Signed Impressions: Service Date/Time: Thursday, October 05, 2017 09:32 - CONCLUSION: Negative for acute process. Dajuan Mendez MD FACR Chest X-Ray 10/05/17 0000 Signed Impressions: Service Date/Time: Thursday, October 05, 2017 07:50 - CONCLUSION: 1. Small bilateral effusions with patchy areas of infiltrate. There are air bronchograms seen on the left. Exam is concerning for pneumonia. Syed Mendez MD CT Angiography 09/30/17 1723 Signed Impressions: Service Date/Time: Saturday, September 30, 2017 17:50 - CONCLUSION: 1. Diffuse bilateral pulmonary infiltrates with cylindrical bronchiectasis. 2. No pulmonary embolus. Dre Moseley Jr., MD PHYSICAL EXAMINATION GENERAL: No acute distress. On the ventilator. Responsive. HEENT: Head atraumatic. Extraocular movements intact. The patient is intubated. Oropharynx mucosa appears moist. NECK: No swelling or adenopathy. LUNGS: Bilateral rhonchi. HEART: Regular, S1-S2 without audible murmurs, rubs or gallops. ABDOMEN: Bowel sounds present, soft, no tenderness appreciated. EXTREMITIES: No clubbing or cyanosis or edema. SKIN: No rash. NEURO: Unable to assess. PSYCHE: Unable to assess. IMPRESSION 1. Pneumonia. Abnormal chest x-ray and admitted with respiratory distress and required intubation. 2. Leukocytosis secondary to infection. Also on steroids which could be contributing. 3. Acute respiratory failure. 4. Multiple sclerosis. RECOMMENDATIONS 1. Continue vancomycin. 2. Continue azithromycin. 3. Continue piperacillin/tazobactam. 4. Follow white blood cell count. 5. Monitor clinical status. Dontfraid,Lorenzo F MD Oct 06, 2017 12:19
[2017-10-06] MEDS ORDERED: PHARMACY ORDERED LAB ONE (16:45)
[2017-10-06] MEDS: RESP: ALBUTEROL 2.5 MG/IPRATROPIUM 0.5 MG NEB (PRN) INH (16:51)
[2017-10-06] MEDS: VANCOMYCIN 1,500 MG/NS 500 ML IV SCH ×2 (18:08)
[2017-10-06] MEDS: AZITHROMYCIN INJ 500 MG in SODIUM CHLOR 0.9% 250 ML INJ 250 ML IV SCH (20:12)
--- NOTE | 2017-10-06 21:07 | MB ---
cc: Mart VALENZUELA M.D., ALAA M.D. DATE OF CONSULTATION: 10/06/2017 REASON FOR CONSULTATION: Pneumonia and respiratory failure. HISTORY OF PRESENT ILLNESS: This is a 52-year-old lady with a history of multiple sclerosis who was recently having cough and shortness of breath with hypoxia and was seen in the emergency room and was intubated for acute respiratory failure. The patient was found to have diffuse pulmonary vascular congestion and the CT scan of the chest showed bilateral pulmonary infiltrates. She was thus started on antibiotic coverage and placed on ventilator support and has been placed on Solu-Medrol 40 mg twice a day as well as nebulized bronchodilators. The repeat chest x-ray was minimally improved and her influenza testing was negative. The patient, however, was having leukocytosis and she is presently on vancomycin and Zithromax and Zosyn. The patient has been weaned down to C-PAP today with FIO2 of 35% and is awake and responding appropriately to commands. PAST HISTORY The patient's past history is significant for multiple sclerosis and history of hypertension, history of gastroesophageal reflux disease and hysterectomy. She has had asthma and chronic bronchitis. ALLERGIES: LATEX FUROSEMIDE HABITS The patient does not smoke. Alcohol use occasional. MEDICATIONS: Reviewed from the chart. FAMILY HISTORY Essentially unremarkable. REVIEW OF SYSTEMS The patient is intubated and on ventilator support. PHYSICAL EXAMINATION This moderately overweight middle-aged -[place] lady was intubated, unresponsive. VITAL SIGNS: Blood pressure 112/70, pulse is 85, respiratory rate 24, temperature is 98.2. HEENT: Head normocephalic. Pupils are reactive. Sclerae are clear. Throat has few secretions. Neck: Supple. No bruits or thyroid enlargement, no lymphadenopathy. Chest: Distant breath sounds with expiratory wheezes bilaterally and occasional crackles scattered. Heart: Heart sounds are regular, S1-S2 with no murmur. No S3. Abdomen: Soft, obese without masses, no organomegaly or tenderness. Bowel sounds are active. Extremities: No edema. No calf tenderness. Reflexes are 1+. The patient is awake and moving all extremities, but somewhat sluggish since she is partially sedated. Skin: No lesions are observed. IMPRESSION: 1. Bilateral pneumonia. 2. Interstitial lung disease, chronic with reactive airway. 3. Acute respiratory failure. 4. History of multiple sclerosis. 5. Sepsis. PLAN: The patient will be maintained on antibiotic coverage as ordered and nebulized DuoNeb solution added q.i.d. as well as Solu-Medrol, continued at 40 milligrams IV q12. She will be weaned to C-PAP today and blood gases done as well as respiratory parameters and C-PAP. If she meets criteria, she will be extubated and placed on nasal cannula at 4 liters. Chest x-ray will be done in the a.m. I will follow the case with you, Dr. Burleson. Thank you for the consultation. MD AMANDA Heaton/TYREE /8:40 PM /8:52 PM
[2017-10-06] MEDS: SODIUM CHLORIDE 0.9% FLUSH 10 ML FLUSH IV FLUSH PRN (22:39)
[2017-10-07] VITALS (19 sets, daily range): BP systolic 107–126; BP diastolic 71–75; PULSE 58–109; RESP 16–25; TEMP 97.8–99; O2SAT 93–98
[2017-10-07] MEDS: HEPARIN SODIUM - SQ 10,000 UNITS/ML VIAL SQ SCH ×3 (03:00→20:00)
[2017-10-07] MEDS: PIPERACIL-TAZO 4.5 GM PREMIX 100 ML IV SCH ×4 (03:01→20:21)
[2017-10-07] MEDS: INSULIN NovoLIN REGULAR SUPPLEMENTAL SCALE SQ SCH ×6 (03:01→22:00)
[2017-10-07] MEDS: RESP: ALBUTEROL 2.5 MG/IPRATROPIUM 0.5 MG NEB (PRN) INH (03:20)
[2017-10-07] MEDS: CHLORHEXIDINE GLUCONATE 2 % 1 PACK (2 CLOTHS) TOP SCH (04:00)
--- NOTE | 2017-10-07 04:30 | RADRPT ---
EXAM DATE/TIME: 10/07/2017 03:19 [place] COMPARISON: CHEST SINGLE AP, October 05, 2017, 7:50. INDICATIONS : Short of breath. MEDICAL HISTORY : Hypertension. Cardiovascular disease. SURGICAL HISTORY : None. ENCOUNTER: Subsequent ACUITY: 1 week PAIN SCORE: 0/10 LOCATION: Bilateral chest FINDINGS: ET tube tip well above the yoselyn. Gastric tube tip and side-port project within the stomach. There is improved aeration of the left lower lung with decreasing consolidative infiltrate. The left monisha diaphragm is now well delineated. The right lung is clear. The heart is normal size. CONCLUSION: Improving left lower lobe consolidation. Dre Cooper MD on October 07, 2017 at 4:28 Board Certified Radiologist. This report was verified electronically.
[2017-10-07] MEDS: FERROUS SULFATE 325 MG (65 MG ELEMENTAL IRON) TAB PO SCH (09:00)
[2017-10-07] MEDS: INSULIN DETEMIR 100 UNITS/ML VIAL SQ SCH ×2 (09:00→20:24)
[2017-10-07 09:57] LABS: BASOPHIL # 0.1 TH/MM3 (0-0.2); BASOPHIL % 0.5 % (0.0-2.0); EOSINOPHIL # 0.1 TH/MM3 (0-0.4); EOSINOPHIL % 0.6 % (0.0-4.0); HEMATOCRIT 36.4 % (35.0-46.0); HEMOGLOBIN 11.4 GM/DL (11.6-15.3); LYMPH % 14.6 % (9.0-44.0); LYMPHOCYTE # 2.9 TH/MM3 (1.0-4.8); MEAN CELL VOLUME 77.6 FL (80.0-100.0); MEAN CORPUSCULAR HEMOGLOBIN 24.3 PG (27.0-34.0); MEAN CORPUSCULAR HGB CONC 31.2 % (32.0-36.0); MEAN PLATELET VOLUME 9.9 FL (7.0-11.0); MONO % 7.5 % (0.0-8.0); MONOCYTE # 1.5 TH/MM3 (0-0.9); NEUT % 76.8 % (16.0-70.0); PLATELET COUNT 261 TH/MM3 (150-450); RED BLOOD COUNT 4.69 MIL/MM3 (4.00-5.30); RED CELL DISTRIBUTION WIDTH 16.6 % (11.6-17.2); WHITE BLOOD COUNT 19.5 TH/MM3 (4.0-11.0)
[2017-10-07] MEDS: methylPREDNISolone SOD SUCC 40 MG/1 ML VIAL IV PUSH SCH ×2 (10:01→20:23)
[2017-10-07] MEDS: FAMOTIDINE 20 MG/2 ML VIAL IV PUSH SCH ×2 (10:01→21:50)
[2017-10-07] MEDS: SODIUM CHLORIDE 0.9% FLUSH 10 ML FLUSH IV FLUSH SCH ×2 (10:01→20:22)
[2017-10-07] MEDS: DOCUSATE SODIUM 50 MG/SENNA 8.6 MG TAB PO SCH ×2 (10:02→20:24)
[2017-10-07] MEDS: ASPIRIN 81 MG CHEW TAB PO SCH (10:02)
[2017-10-07] MEDS: BACLOFEN 10 MG TAB PO SCH ×3 (10:02→17:17)
[2017-10-07 10:36] LABS: BANDS 6 % (0-6); LYMPHOCYTES 10 % (9-44); MONOCYTES 10 % (0-8); MYELOCYTES 1 % (0-0); NEUTROPHIL # MANUAL DIFF 15.6 TH/MM3 (1.8-7.7); POLYS (SEG NEUTROPHILS) 73 % (16-70)
[2017-10-07] MEDS ORDERED: PHARMACY ORDERED LAB ONE (10:45)
[2017-10-07] MEDS: VANCOMYCIN 1,500 MG/NS 500 ML IV SCH ×2 (11:31)
--- NOTE | 2017-10-07 11:34 | HHI.IDPN ---
Note Infectious Disease Note Patient is awake and alert on the vent. Follows commands. Afebrile. Presented to the emergency department with hypoxia and respiratory distress. The patient has history of multiple sclerosis. She was noted to have cough. She has had multiple recent hospitalizations for pneumonia over the past few months including two at [facility] before this current admission here at [place]. CT scan of the lungs showed diffuse bilateral pulmonary infiltrates. The patient was admitted and started on antibiotics. PAST MEDICAL HISTORY 1. Multiple sclerosis. The patient has not been on medication for the past 2 years, per her son's report. 2. Hypertension. 3. Gastroesophageal reflux. 4. Chronic lung disease. 5. Hysterectomy. ALLERGIES LASIX, LATEX. ANTIBIOTICS: 1. Vancomycin. 2. Azithromycin. 3. Piperacillin / tazobactam. Current Medications Medications (Trade) Dose Ordered Sig/Marielos Route PRN Reason Start Time Stop Time Status Last Admin Dose Admin Aspirin (Aspirin Chew) 81 mg DAILY PO 10/01/17 09:00 10/07/17 10:02 Baclofen (Lioresal) 10 mg TID PO 10/01/17 09:00 10/07/17 10:02 Meclizine HCl (Antivert) 12.5 mg BID PRN PO VERTIGO 09/30/17 19:30 Ferrous Sulfate (Ferrous Sulfate) 325 mg DAILY PO 10/01/17 09:00 10/06/17 07:55 Sodium Chloride (NS Flush) 2 ml UNSCH PRN IV FLUSH FLUSH AFTER USING IV ACCESS 09/30/17 19:30 10/06/17 22:39 Sodium Chloride (NS Flush) 2 ml BID IV FLUSH 09/30/17 21:00 10/07/17 10:01 Acetaminophen (Tylenol) 650 mg Q6H PRN PO PAIN 1-5 AND/OR FEVER >101F 09/30/17 19:30 Morphine Sulfate (Morphine Inj) 2 mg Q2H PRN IV PUSH PAIN SCALE 6 TO 10 09/30/17 20:30 Famotidine (Pepcid Inj) 20 mg Q12HR IV PUSH 09/30/17 21:00 10/07/17 10:01 Ondansetron HCl (Zofran Inj) 4 mg Q6H PRN IV PUSH NAUSEA OR VOMITING 09/30/17 19:30 Zolpidem Tartrate (Ambien) 5 mg HS PRN PO INSOMNIA 09/30/17 19:30 Albuterol/ Ipratropium (Duoneb Neb) 1 ampule Q2HR NEB PRN INH WHEEZING 09/30/17 19:30 10/07/17 03:20 Heparin Sodium (Porcine) (Heparin Inj) 5,000 units Q8H SQ 09/30/17 20:00 10/07/17 03:00 Miscellaneous Information 1 Q361D XX 09/30/17 19:30 09/30/17 19:30 Chlorhexidine Gluconate (Chlorhexidine 2% Cloth) Taper DAILY@04 TOP 10/01/17 04:00 09/27/18 03:59 10/05/17 04:00 Chlorhexidine Gluconate (Chlorhexidine 2% Cloth) 3 pack UNSCH PRN TOP HYGIENIC CARE 09/30/17 19:30 Senna/Docusate Sodium (Carolyn-Colace) 1 tab BID PO 09/30/17 21:00 10/07/17 10:02 Magnesium Hydroxide (Milk Of Magnesia Liq) 30 ml Q12H PRN PO Mild constipation 09/30/17 19:30 Sennosides (Senokot) 17.2 mg Q12H PRN PO Moderate constipation 09/30/17 19:30 Bisacodyl (Dulcolax Supp) 10 mg DAILY PRN RECTAL SEVERE CONSITIPATION 09/30/17 19:30 10/02/17 08:18 Lactulose (Lactulose Liq) 30 ml DAILY PRN PO SEVERE CONSITIPATION 09/30/17 19:30 Azithromycin 500 mg/Sodium Chloride 250 ml @ 250 mls/hr Q24H IV 10/01/17 21:00 10/06/17 20:12 Piperacillin Sod/ Tazobactam Sod 100 ml @ 200 mls/hr Q6H IV 09/30/17 21:00 10/07/17 10:02 Miscellaneous (Pill Splitter) 1 ea UNSCH PRN OTHER SEE LABEL COMMENTS 09/30/17 20:30 Potassium Chloride 100 ml @ 50 mls/hr Q2H PRN IV For Potassium 2.8 - 3.2 mEq/L 10/01/17 03:15 Potassium Chloride 100 ml @ 50 mls/hr Q2H PRN IV For Potassium 2.8 - 3.2 mEq/L 10/01/17 03:15 Potassium Bicarb/ Potassium Chloride (K-Lyte Cl Eff) 50 meq UNSCH PRN PO For Potassium 3.3 - 3.5 mEq/L 10/01/17 03:15 Potassium Chloride 100 ml @ 25 mls/hr UNSCH PRN IV For Potassium 3.3 - 3.5 mEq/L 10/01/17 03:15 Potassium Chloride 100 ml @ 50 mls/hr Q2H PRN IV For Potassium 3.3 - 3.5 mEq/L 10/01/17 03:15 Magnesium Sulfate 4 gm/Sodium Chloride 100 ml @ 50 mls/hr UNSCH PRN IV For Magnesium 0.9 - 1.1 mg/dL 10/01/17 03:15 Magnesium Oxide (Mag-Ox) 800 mg UNSCH PRN PO For Magnesium 1.2 - 1.6 mg/dL 10/01/17 03:15 Magnesium Sulfate 2 gm/Sodium Chloride 100 ml @ 50 mls/hr UNSCH PRN IV For Magnesium 1.2 - 1.6 mg/dL 10/01/17 03:15 Potassium Phosphate (K-Phos) 2,000 mg Q4H PRN PO For Phosphorus < 2.5 mg/dL 10/01/17 03:15 Sodium Phosphate 30 mmol/Sodium Chloride 250 ml @ 42 mls/hr UNSCH PRN IV For Phosphorus < 2.5 mg/dL 10/01/17 03:15 Potassium Phosphate (K-Phos) 2,000 mg UNSCH PRN PO/TUBE SEE LABEL COMMENTS 10/01/17 03:15 Potassium Phosphate 30 mmol/ Sodium Chloride 260 ml @ 42 mls/hr UNSCH PRN IV SEE LABEL COMMENTS 10/01/17 03:15 Dextrose (D50w (Vial) Inj) 50 ml UNSCH PRN IV PUSH HYPOGLYCEMIA-SEE COMMENTS 10/01/17 09:30 Glucagon (Glucagon Inj) 1 mg UNSCH PRN OTHER HYPOGLYCEMIA-SEE COMMENTS 10/01/17 09:30 Insulin Human Regular (NovoLIN R SUPPLEMENTAL SCALE) 1 Q4H SQ 10/01/17 10:00 10/07/17 03:01 Pharmacy Profile Note 0 ml @ 0 mls/hr UNSCH OTHER 10/01/17 09:30 Insulin Detemir (Levemir Inj) 5 units Q12HR SQ 10/03/17 10:15 10/07/17 09:00 Vancomycin HCl 1500 mg/Sodium Chloride 515 ml @ 257.5 mls/ hr Q18H IV 10/04/17 11:00 10/06/17 18:08 Methylprednisolone Sodium Succinate (SoluMEDROL INJ) 40 mg Q12HR IV PUSH 10/04/17 21:00 10/07/17 10:01 OBJECTIVE: Vital Signs Date Time Temp Pulse Resp B/P (MAP) Pulse Ox O2 Delivery O2 Flow Rate FiO2 10/07/17 10:00 72 10/07/17 08:00 35 10/07/17 08:00 76 10/07/17 08:00 98.7 58 16 126/73 (90) 98 10/07/17 06:00 60 10/07/17 04:03 97 30 10/07/17 04:00 35 10/07/17 04:00 98.6 58 16 126/73 (90) 98 10/07/17 04:00 58 10/07/17 03:20 97 30 10/07/17 02:00 109 10/07/17 00:22 98 35 10/07/17 00:00 98.1 61 17 112/71 (85) 98 10/07/17 00:00 35 10/07/17 00:00 61 10/06/17 22:00 63 10/06/17 20:01 98.9 85 16 106/11 (42) 99 10/06/17 20:00 35 10/06/17 20:00 71 10/06/17 19:57 98 35 10/06/17 18:30 56 10/06/17 18:00 64 10/06/17 16:29 99 35 10/06/17 16:00 99.1 64 41 135/79 (97) 96 10/06/17 16:00 64 10/06/17 16:00 35 10/06/17 16:00 64 10/06/17 14:30 66 10/06/17 14:00 67 10/06/17 13:11 97 35 10/06/17 13:10 35 10/06/17 13:00 75 10/06/17 12:30 62 35 136/79 (98) 97 10/06/17 12:30 62 10/06/17 12:00 71 10/06/17 12:00 35 10/06/17 12:00 98.1 71 34 126/76 (93) 96 Laboratory Tests Test 10/06/17 07:10 10/07/17 09:25 White Blood Count 17.7 TH/MM3 19.5 TH/MM3 Red Blood Count 4.58 MIL/MM3 4.69 MIL/MM3 Hemoglobin 11.3 GM/DL 11.4 GM/DL Hematocrit 35.6 % 36.4 % Mean Corpuscular Volume 77.7 FL 77.6 FL Mean Corpuscular Hemoglobin 24.6 PG 24.3 PG Mean Corpuscular Hemoglobin Concent 31.7 % 31.2 % Red Cell Distribution Width 16.8 % 16.6 % Platelet Count 282 TH/MM3 261 TH/MM3 Mean Platelet Volume 9.7 FL 9.9 FL Neutrophils (%) (Auto) 79.5 % 76.8 % Lymphocytes (%) (Auto) 13.8 % 14.6 % Monocytes (%) (Auto) 6.5 % 7.5 % Eosinophils (%) (Auto) 0.1 % 0.6 % Basophils (%) (Auto) 0.1 % 0.5 % Neutrophils # (Auto) 14.1 TH/MM3 15.0 TH/MM3 Lymphocytes # (Auto) 2.4 TH/MM3 2.9 TH/MM3 Monocytes # (Auto) 1.2 TH/MM3 1.5 TH/MM3 Eosinophils # (Auto) 0.0 TH/MM3 0.1 TH/MM3 Basophils # (Auto) 0.0 TH/MM3 0.1 TH/MM3 CBC Comment AUTO DIFF AUTO DIFF Differential Total Cells Counted 100 100 Neutrophils % (Manual) 81 % 73 % Band Neutrophils % 6 % 6 % Lymphocytes % 8 % 10 % Monocytes % 2 % 10 % Neutrophils # (Manual) 15.9 TH/MM3 15.6 TH/MM3 Myelocytes 3 % 1 % Differential Comment FINAL DIFF MANUAL FINAL DIFF MANUAL Platelet Estimate NORMAL NORMAL Platelet Morphology Comment ENLARGED NORMAL Red Cell Morphology Comment NORMAL Laboratory Tests Test 10/06/17 07:10 Blood Urea Nitrogen 27 MG/DL Creatinine 0.86 MG/DL Random Glucose 176 MG/DL Calcium Level 9.6 MG/DL Sodium Level 143 MEQ/L Potassium Level 4.4 MEQ/L Chloride Level 104 MEQ/L Carbon Dioxide Level 35.5 MEQ/L Anion Gap 4 MEQ/L Estimat Glomerular Filtration Rate 84 ML/MIN Microbiology Date/Time Source Procedure Growth Status 10/05/17 11:40 Sputum Endotracheal Gram Stain - Final Complete 10/05/17 11:40 Sputum Endotracheal Sputum Culture - Final LIGHT GROWTH NORMAL RESPIRATORY FAM Complete IMAGING: Chest X-Ray 10/07/17 0000 Signed Impressions: Service Date/Time: Saturday, October 07, 2017 03:19 - CONCLUSION: Improving left lower lobe consolidation. Dre Cooper MD Head CT 10/05/17 0000 Signed Impressions: Service Date/Time: Thursday, October 05, 2017 09:32 - CONCLUSION: Negative for acute process. Dajuan Mendez MD FACR Chest X-Ray 10/05/17 0000 Signed Impressions: Service Date/Time: Thursday, October 05, 2017 07:50 - CONCLUSION: 1. Small bilateral effusions with patchy areas of infiltrate. There are air bronchograms seen on the left. Exam is concerning for pneumonia. Syed Mendez MD CT Angiography 09/30/17 1723 Signed Impressions: Service Date/Time: Saturday, September 30, 2017 17:50 - CONCLUSION: 1. Diffuse bilateral pulmonary infiltrates with cylindrical bronchiectasis. 2. No pulmonary embolus. Dre Moseley Jr., MD PHYSICAL EXAMINATION GENERAL: No acute distress. On the ventilator. Responsive. HEENT: Head atraumatic. Extraocular movements intact. The patient is intubated. Oropharynx mucosa moist. NECK: No swelling or adenopathy. LUNGS: Bilateral rhonchi. HEART: Regular, S1-S2 without audible murmurs, rubs or gallops. ABDOMEN: Bowel sounds present, soft, no tenderness appreciated. EXTREMITIES: No clubbing or cyanosis or edema. SKIN: No rash. NEURO: Non focal. PSYCH: calm. IMPRESSION 1. Pneumonia. 2. Leukocytosis secondary to infection. Also on steroids which could be contributing. 3. Acute respiratory failure. 4. Multiple sclerosis. RECOMMENDATIONS 1. Continue vancomycin. 2. Continue azithromycin. 3. Continue piperacillin/tazobactam. 4. Continue to follow the white blood cell count. 5. Monitor clinical status. Lorenzo Simpson MD Oct 07, 2017 11:34
--- NOTE | 2017-10-07 13:04 | HHI.PR ---
Subjective Remarks Awake intubated and No distress. On FIO2 30 %. Failed CPAP. CXR with Bilateral infiltrates. Objective Vital Signs Date Time Temp Pulse Resp B/P (MAP) Pulse Ox O2 Delivery O2 Flow Rate FiO2 10/07/17 12:00 80 10/07/17 11:44 97 30 10/07/17 10:00 72 10/07/17 08:00 35 10/07/17 08:00 76 10/07/17 08:00 98.7 58 16 126/73 (90) 98 10/07/17 06:00 60 10/07/17 04:03 97 30 10/07/17 04:00 35 10/07/17 04:00 98.6 58 16 126/73 (90) 98 10/07/17 04:00 58 10/07/17 03:20 97 30 10/07/17 02:00 109 10/07/17 00:22 98 35 10/07/17 00:00 98.1 61 17 112/71 (85) 98 10/07/17 00:00 35 10/07/17 00:00 61 10/06/17 22:00 63 10/06/17 20:01 98.9 85 16 106/11 (42) 99 10/06/17 20:00 35 10/06/17 20:00 71 10/06/17 19:57 98 35 10/06/17 18:30 56 10/06/17 18:00 64 10/06/17 16:29 99 35 10/06/17 16:00 99.1 64 41 135/79 (97) 96 10/06/17 16:00 64 10/06/17 16:00 35 10/06/17 16:00 64 10/06/17 14:30 66 10/06/17 14:00 67 10/06/17 13:11 97 35 10/06/17 13:10 35 10/06/17 13:00 75 I/O 10/06/17 10/06/17 10/06/17 10/07/17 10/07/17 10/07/17 07:00 15:00 23:00 07:00 15:00 23:00 Intake Total 1110 ml 100 ml 1405 ml 611 ml Output Total 850 ml 0 ml 1200 ml 300 ml 0 ml Balance 260 ml 100 ml 205 ml 311 ml 0 ml Intake IV Total 615 ml 100 ml 865 ml 100 ml Tube Feeding 495 ml 300 ml 511 ml Other 240 ml Output Urine Total 850 ml 1000 ml 300 ml Stool Total 200 ml Tube Feeding Residual Discard 0 ml 0 ml # Voids 3 # Bowel Movements 1 2 Result Diagram: 10/07/1725 10/06/17 0710 Objective Remarks This moderately overweight middle-aged -[place] lady was intubated, responsive. HEENT: Head normocephalic. Pupils are reactive. Sclerae are clear. Throat has few secretions. Neck: Supple. No bruits or thyroid enlargement, no lymphadenopathy. Chest: Distant breath sounds with expiratory wheezes bilaterally and occasional crackles scattered. Heart: Heart sounds are regular, S1-S2 with no murmur. No S3. Abdomen: Soft, obese without masses, no organomegaly or tenderness. Bowel sounds are active. Extremities: No edema. No calf tenderness. Reflexes are 1+. The patient is awake and moving all extremities, but somewhat sluggish since she is partially sedated. Skin: No lesions are observed. Assessment and Plan Assessment and Plan IMPRESSION: 1. Bilateral pneumonia. 2. Interstitial lung disease, chronic with reactive airway. 3. Acute respiratory failure. 4. History of multiple sclerosis. 5. Pulmonary Edema Plan : 1. CPAP trial daily. 2. Cont Antibiotics per DR Owusu 3. Duonebs qid. 4. Tube feeds 50 CC 5. CXR ,BMP CBC in am. 6. Reduce sedation 7. Add Bumex 1 mg daily. Mart Prescott MD Oct 07, 2017 13:04
[2017-10-07 13:15] LABS: BICARBONATE 33.8 MEQ/L (21.0-32.0); CALCIUM 9.7 MG/DL (8.5-10.1); CREATININE 0.78 MG/DL (0.50-1.00); MAGNESIUM 2.6 MG/DL (1.5-2.5); PHOSPHORUS 3.4 MG/DL (2.5-4.9)
[2017-10-07] MEDS: BUMETANIDE 1 MG TAB PO SCH (20:20)
[2017-10-07] MEDS: AZITHROMYCIN INJ 500 MG in SODIUM CHLOR 0.9% 250 ML INJ 250 ML IV SCH (20:24)
[2017-10-07] MEDS: MORPHINE SULFATE 2 MG/ML INJ IV PUSH PRN (21:51)
--- NOTE | 2017-10-07 23:56 | HHI.CCPN ---
Subjective Remarks/Hospital Course 52-year-old unfortunate female patient with history of MS, previous stroke, chronic lung disease, presents to the ER today because she has had worsening dyspnea on exertion end shortness of breath with getting up from bed. She has also been coughing. She states that similar symptoms have happened before and she has been like this since October last year. She states that she has had "fluid in the lungs". She denies any chest pains, fevers, or other symptoms. She is very poor historian. 10/01 Patient was on non rebreather however she was hypoxic, tachycardic, tachypneic and using her accessory muscle for respiration she was subsequently intubated and placed on mechanical ventilation. 10/02 Patient is sedated and intubated. Afebrile. 10/03 No events overnight. Sedated with Versed and Diprivan drips. Afebrile. Tolerating tube feeds. 10/04 Patient remains intubated and sedated with Diprivan. Off Versed. Afebrile 10/05 Patient remains sedated and intubated. Had Liquid stool overnight. 10/06 No events overnight. Off sedation awake and follows commands. Afebrile. Subjective 10/07: Afebrile. Complaining of pain in her left upper extremity resolved. Tolerating tube feeding. Appears very complex status post given bumetadine1 mg IV 1 today Objective Vital Signs Date Time Temp Pulse Resp B/P (MAP) Pulse Ox O2 Delivery O2 Flow Rate FiO2 10/07/17 23:48 96 30 10/07/17 21:56 16 10/07/17 18:00 79 10/07/17 16:00 97.8 107/75 (86) 10/04/17 03:58 Ventilator Intake and Output 10/07/17 10/07/17 10/08/17 08:00 16:00 00:00 Intake Total 611 ml 720 ml Output Total 300.0 ml 850 ml Balance 311.0 ml -130 ml Result Diagram: 10/07/17 0925 10/07/17 1233 Other Results Microbiology Date/Time Source Procedure Growth Status 09/30/17 20:20 Blood Other Aerobic Blood Culture - Final NO GROWTH IN 5 DAYS Complete 09/30/17 20:20 Blood Other Anaerobic Blood Culture - Final NO GROWTH IN 5 DAYS Complete 10/05/17 11:40 Sputum Endotracheal Gram Stain - Final Complete 10/05/17 11:40 Sputum Endotracheal Sputum Culture - Final LIGHT GROWTH NORMAL RESPIRATORY STEPHON Complete 10/03/17 10:45 Urine Catheterized Urine Streptococcus pneumoniae Antigen (M - Final PRESUMPTIVE NEGATIVE FOR STREPTOCOCCU... Complete Imaging Last Impressions Chest X-Ray 10/07/17 0000 Signed Impressions: Service Date/Time: Saturday, October 07, 2017 03:19 - CONCLUSION: Improving left lower lobe consolidation. Dre Cooper MD Head CT 10/05/17 0000 Signed Impressions: Service Date/Time: Thursday, October 05, 2017 09:32 - CONCLUSION: Negative for acute process. Dajuan Mendez MD FACR CT Angiography 09/30/17 1723 Signed Impressions: Service Date/Time: Saturday, September 30, 2017 17:50 - CONCLUSION: 1. Diffuse bilateral pulmonary infiltrates with cylindrical bronchiectasis. 2. No pulmonary embolus. Dre Moseley Jr., MD Objective Remarks GENERAL: This is a 52-year-old female patient currently orotracheally intubated SKIN: Focused skin assessment warm/dry. HEAD: Atraumatic. Normocephalic. EYES: Pupils equal and round. No scleral icterus. No injection or drainage. ENT: No nasal bleeding or discharge. Mucous membranes pink and moist. NECK: Trachea midline. No JVD. CARDIOVASCULAR: Tachycardic. S1, S2. No S4. No murmur appreciated. RESPIRATORY: Few crackles appreciated in the bases bilaterally. No wheezing GASTROINTESTINAL: Abdomen soft, non-tender, nondistended. I Earl bowel sounds appreciated MUSCULOSKELETAL: No obvious deformities. No skin peripheral edema. Neuro: Radial nerves II through XII are grossly intact. Strength is equal symmetric. Normal sensation. Follows commands A/P Assessment and Plan Neuro: MS History of posterior pontine hemorrhagic CVA 2013 History of migraine headaches History of lupus cerebritis? Off sedation. Monitor neuro status. Patient is more awake and alert today CT brain: No acute process EEG - no epileptiform activity Neurology has followed Dr. Kasey Brennan: Acute respiratory failure Interstitial lung disease Continue with vent support keep sat >92% On PRVC/AC RR 16, TV 500, PEEP:5, I time of 1, FIO2: 30 Albuterol/ipratropium aerosols every 6 hours and albuterol aerosols every 2 hours. Dyspnea, ICU vent bundle. Solumederol 40mg Q12 SBT daily as elodia. CV: Monitor HR and BP keep MAP>65mmHg Echo showed the left ventricular systolic function is normal with an estimated ejection fraction in the range of 60-65%. Normal left ventricular size. Wall thickness is normal. No regional wall motion abnormalities are present. There is mild tricuspid valve regurgitation. The estimated pulmonary arterial pressure is 52.8 mmHg. Trivial pulmonary valve regurgitation. : Hyper-magnesium Monitor renal function, I/O's, electrolytes replacement per protocol. GI: Hypoalbuminemia Gastroesophageal reflux disease On famotidine for GI prophylaxis. On tube feeds-Glucerna 1.5 @ 45ml/hr. Nutrition recommends vital high protein 45 cc an hour ID: Continue with abx (piperacillin/tazobactam, Azithromycin, vancomycin) monitor for signs of infections ( Fever, WBC) strep pneumonia, Legionella urinary Ag, Influenza screening all negative. BC 09/30: NGTD, sputum cx: normal resp stephon Check C-diff PCR r/o c-diff Heme: Leukocytosis Anemia/microcytic Monitor CBC Endo: Hyperglycemia SSI Novulin R with Accu-Cheks every 4 hours at moderate regimen for glycemic control, insulin detemir 5uQ12. 10 units sliding scale insulin past 24 hours GI prophylaxis- on famotidine DVT prophylaxis- SCD, Heparin SQ. Level II follow-up Zeus Greene MD Oct 07, 2017 23:56
[2017-10-08] VITALS (18 sets, daily range): BP systolic 106–146; BP diastolic 60–86; PULSE 58–90; RESP 16; TEMP 97.9–98.7; O2SAT 92–99
[2017-10-08] MEDS ORDERED: RESP: ALBUTEROL 2.5 MG/3 ML NEB (PRN) NEB (01:15)
[2017-10-08] MEDS: INSULIN NovoLIN REGULAR SUPPLEMENTAL SCALE SQ SCH ×6 (02:00→20:30)
[2017-10-08] MEDS: PIPERACIL-TAZO 4.5 GM PREMIX 100 ML IV SCH ×4 (02:35→20:30)
[2017-10-08] MEDS: RESP: ALBUTEROL 2.5 MG/IPRATROPIUM 0.5 MG NEB (SCH) NEB ×4 (03:42→20:01)
[2017-10-08] MEDS: CHLORHEXIDINE GLUCONATE 2 % 1 PACK (2 CLOTHS) TOP SCH (04:00)
[2017-10-08] MEDS: HEPARIN SODIUM - SQ 10,000 UNITS/ML VIAL SQ SCH ×3 (04:00→20:00)
[2017-10-08] MEDS ORDERED: PHARMACY ORDERED LAB ONE (04:45)
--- NOTE | 2017-10-08 05:04 | RADRPT ---
EXAM DATE/TIME: 10/08/2017 03:51 [facility] COMPARISON: CHEST SINGLE AP, October 07, 2017, 3:19. INDICATIONS : Shortness of breath, possible pulmonary disease. MEDICAL HISTORY : Hypertension. Cardiovascular disease. SURGICAL HISTORY : None. ENCOUNTER: Subsequent ACUITY: 1 week PAIN SCORE: Non-responsive. LOCATION: Bilateral chest FINDINGS: ET tube and gastric tube in good position. Persistent partially consolidative infiltrates in the lef t lower lung with air bronchograms, stable. The right lung is clear. CONCLUSION: Persistent stable left lower lobe consolidation Dre Cooper MD on October 08, 2017 at 5:01 Board Certified Radiologist. This report was verified electronically.
[2017-10-08 06:29] LABS: AUTOMATED NEUTROPHIL # 17.7 TH/MM3 (1.8-7.7); BASOPHIL # 0.1 TH/MM3 (0-0.2); BASOPHIL % 0.3 % (0.0-2.0); EOSINOPHIL % 0.1 % (0.0-4.0); HEMATOCRIT 37.4 % (35.0-46.0); LYMPH % 12.2 % (9.0-44.0); LYMPHOCYTE # 2.7 TH/MM3 (1.0-4.8); MEAN CELL VOLUME 75.8 FL (80.0-100.0); MEAN CORPUSCULAR HEMOGLOBIN 24.2 PG (27.0-34.0); MEAN CORPUSCULAR HGB CONC 31.9 % (32.0-36.0); MEAN PLATELET VOLUME 9.2 FL (7.0-11.0); MONO % 6.6 % (0.0-8.0); MONOCYTE # 1.4 TH/MM3 (0-0.9); NEUT % 80.8 % (16.0-70.0); PLATELET COUNT 256 TH/MM3 (150-450); RED BLOOD COUNT 4.94 MIL/MM3 (4.00-5.30); RED CELL DISTRIBUTION WIDTH 16.6 % (11.6-17.2); WHITE BLOOD COUNT 21.9 TH/MM3 (4.0-11.0)
[2017-10-08] MEDS: ARTIFICIAL TEARS OPTH SOLN 15 ML BTL EACH EYE SCH ×3 (06:52→21:15)
[2017-10-08 06:57] LABS: BICARBONATE 32.3 MEQ/L (21.0-32.0); CREATININE 0.95 MG/DL (0.50-1.00); MAGNESIUM 2.6 MG/DL (1.5-2.5)
[2017-10-08 07:28] LABS: PHOSPHORUS 4.7 MG/DL (2.5-4.9); VANCOMYCIN TROUGH 13.4 MCG/ML (5.0-10.0)
[2017-10-08] MEDS: VANCOMYCIN 1,500 MG/NS 500 ML IV SCH ×4 (07:39→23:09)
[2017-10-08 08:34] LABS: BANDS 2 % (0-6); LYMPHOCYTES 20 % (9-44); METAMYELOCYTES 1 % (0-1); MONOCYTES 4 % (0-8); MYELOCYTES 2 % (0-0); NEUTROPHIL # MANUAL DIFF 16.6 TH/MM3 (1.8-7.7); POLYS (SEG NEUTROPHILS) 71 % (16-70)
[2017-10-08] MEDS: SODIUM CHLORIDE 0.9% FLUSH 10 ML FLUSH IV FLUSH SCH ×2 (09:50→20:30)
[2017-10-08] MEDS: methylPREDNISolone SOD SUCC 40 MG/1 ML VIAL IV PUSH SCH ×2 (09:51→20:29)
[2017-10-08] MEDS: BUMETANIDE 1 MG TAB PO SCH (09:51)
[2017-10-08] MEDS: FAMOTIDINE 20 MG TAB NG SCH ×2 (09:51→20:29)
[2017-10-08] MEDS: DOCUSATE SODIUM 50 MG/SENNA 8.6 MG TAB PO SCH ×2 (09:52→20:30)
[2017-10-08] MEDS: INSULIN DETEMIR 100 UNITS/ML VIAL SQ SCH ×2 (09:52→20:30)
[2017-10-08] MEDS: BACLOFEN 10 MG TAB PO SCH ×3 (09:52→18:09)
[2017-10-08] MEDS: FERROUS SULFATE 300 MG /5ML UDC OG-TUBE SCH (09:52)
[2017-10-08] MEDS: ASPIRIN 81 MG CHEW TAB PO SCH (09:52)
[2017-10-08] MEDS ORDERED: DEXMEDETOMIDINE INJ 200 MCG in SODIUM CHLORIDE 0.9% INJ 50 ML IV PRN (12:00)
--- NOTE | 2017-10-08 12:13 | HHI.IDPN ---
Note Infectious Disease Note Patient is awake and alert on the vent. Follows commands. Afebrile. Son and sister at bedside. Presented to the emergency department with hypoxia and respiratory distress. The patient has history of multiple sclerosis. She was noted to have cough. She has had multiple recent hospitalizations for pneumonia over the past few months including two at [facility] before this current admission here at [place]. CT scan of the lungs showed diffuse bilateral pulmonary infiltrates. The patient was admitted and started on antibiotics. PAST MEDICAL HISTORY 1. Multiple sclerosis. The patient has not been on medication for the past 2 years, per her son's report. 2. Hypertension. 3. Gastroesophageal reflux. 4. Chronic lung disease. 5. Hysterectomy. ALLERGIES LASIX, LATEX. ANTIBIOTICS: 1. Vancomycin. 2. Azithromycin. 3. Piperacillin / tazobactam. Current Medications Medications (Trade) Dose Ordered Sig/Marielos Route PRN Reason Start Time Stop Time Status Last Admin Dose Admin Aspirin (Aspirin Chew) 81 mg DAILY PO 10/01/17 09:00 10/08/17 09:52 Baclofen (Lioresal) 10 mg TID PO 10/01/17 09:00 10/08/17 09:52 Meclizine HCl (Antivert) 12.5 mg BID PRN PO VERTIGO 09/30/17 19:30 Sodium Chloride (NS Flush) 2 ml UNSCH PRN IV FLUSH FLUSH AFTER USING IV ACCESS 09/30/17 19:30 10/06/17 22:39 Sodium Chloride (NS Flush) 2 ml BID IV FLUSH 09/30/17 21:00 10/08/17 09:50 Acetaminophen (Tylenol) 650 mg Q6H PRN PO PAIN 1-5 AND/OR FEVER >101F 09/30/17 19:30 Morphine Sulfate (Morphine Inj) 2 mg Q2H PRN IV PUSH PAIN SCALE 6 TO 10 09/30/17 20:30 10/07/17 21:51 Ondansetron HCl (Zofran Inj) 4 mg Q6H PRN IV PUSH NAUSEA OR VOMITING 09/30/17 19:30 Heparin Sodium (Porcine) (Heparin Inj) 5,000 units Q8H SQ 09/30/17 20:00 10/07/17 13:52 Miscellaneous Information 1 Q361D XX 09/30/17 19:30 09/30/17 19:30 Chlorhexidine Gluconate (Chlorhexidine 2% Cloth) Taper DAILY@04 TOP 10/01/17 04:00 09/27/18 03:59 10/08/17 04:00 Chlorhexidine Gluconate (Chlorhexidine 2% Cloth) 3 pack UNSCH PRN TOP HYGIENIC CARE 09/30/17 19:30 Senna/Docusate Sodium (Carolyn-Colace) 1 tab BID PO 09/30/17 21:00 10/08/17 09:52 Magnesium Hydroxide (Milk Of Magnesia Liq) 30 ml Q12H PRN PO Mild constipation 09/30/17 19:30 Sennosides (Senokot) 17.2 mg Q12H PRN PO Moderate constipation 09/30/17 19:30 Bisacodyl (Dulcolax Supp) 10 mg DAILY PRN RECTAL SEVERE CONSITIPATION 09/30/17 19:30 10/02/17 08:18 Lactulose (Lactulose Liq) 30 ml DAILY PRN PO SEVERE CONSITIPATION 09/30/17 19:30 Azithromycin 500 mg/Sodium Chloride 250 ml @ 250 mls/hr Q24H IV 10/01/17 21:00 10/07/17 20:24 Piperacillin Sod/ Tazobactam Sod 100 ml @ 200 mls/hr Q6H IV 09/30/17 21:00 10/08/17 09:54 Miscellaneous (Pill Splitter) 1 ea UNSCH PRN OTHER SEE LABEL COMMENTS 09/30/17 20:30 Potassium Chloride 100 ml @ 50 mls/hr Q2H PRN IV For Potassium 2.8 - 3.2 mEq/L 10/01/17 03:15 Potassium Chloride 100 ml @ 50 mls/hr Q2H PRN IV For Potassium 2.8 - 3.2 mEq/L 10/01/17 03:15 Potassium Bicarb/ Potassium Chloride (K-Lyte Cl Eff) 50 meq UNSCH PRN PO For Potassium 3.3 - 3.5 mEq/L 10/01/17 03:15 Potassium Chloride 100 ml @ 25 mls/hr UNSCH PRN IV For Potassium 3.3 - 3.5 mEq/L 10/01/17 03:15 Potassium Chloride 100 ml @ 50 mls/hr Q2H PRN IV For Potassium 3.3 - 3.5 mEq/L 10/01/17 03:15 Magnesium Sulfate 4 gm/Sodium Chloride 100 ml @ 50 mls/hr UNSCH PRN IV For Magnesium 0.9 - 1.1 mg/dL 10/01/17 03:15 Magnesium Oxide (Mag-Ox) 800 mg UNSCH PRN PO For Magnesium 1.2 - 1.6 mg/dL 10/01/17 03:15 Magnesium Sulfate 2 gm/Sodium Chloride 100 ml @ 50 mls/hr UNSCH PRN IV For Magnesium 1.2 - 1.6 mg/dL 10/01/17 03:15 Potassium Phosphate (K-Phos) 2,000 mg Q4H PRN PO For Phosphorus < 2.5 mg/dL 10/01/17 03:15 Sodium Phosphate 30 mmol/Sodium Chloride 250 ml @ 42 mls/hr UNSCH PRN IV For Phosphorus < 2.5 mg/dL 10/01/17 03:15 Potassium Phosphate (K-Phos) 2,000 mg UNSCH PRN PO/TUBE SEE LABEL COMMENTS 10/01/17 03:15 Potassium Phosphate 30 mmol/ Sodium Chloride 260 ml @ 42 mls/hr UNSCH PRN IV SEE LABEL COMMENTS 10/01/17 03:15 Dextrose (D50w (Vial) Inj) 50 ml UNSCH PRN IV PUSH HYPOGLYCEMIA-SEE COMMENTS 10/01/17 09:30 Glucagon (Glucagon Inj) 1 mg UNSCH PRN OTHER HYPOGLYCEMIA-SEE COMMENTS 10/01/17 09:30 Insulin Human Regular (NovoLIN R SUPPLEMENTAL SCALE) 1 Q4H SQ 10/01/17 10:00 10/08/17 06:57 Pharmacy Profile Note 0 ml @ 0 mls/hr UNSCH OTHER 10/01/17 09:30 Insulin Detemir (Levemir Inj) 5 units Q12HR SQ 10/03/17 10:15 10/08/17 09:52 Vancomycin HCl 1500 mg/Sodium Chloride 515 ml @ 257.5 mls/ hr Q18H IV 10/04/17 11:00 10/08/17 07:39 Methylprednisolone Sodium Succinate (SoluMEDROL INJ) 40 mg Q12HR IV PUSH 10/04/17 21:00 10/08/17 09:51 Ferrous Sulfate (Ferrous Sulfate Liq) 300 mg DAILY OG-TUBE 10/08/17 09:00 10/08/17 09:52 Bumetanide (Bumetanide) 1 mg DAILY PO 10/07/17 18:19 10/08/17 09:51 Albuterol/ Ipratropium (Duoneb Neb) 1 ampule Q6HR NEB NEB 10/08/17 04:00 10/08/17 08:17 Albuterol Sulfate (Albuterol Neb) 2.5 mg Q2HR NEB PRN NEB dyspnea 10/08/17 01:15 Famotidine (Pepcid) 20 mg BID NG 10/08/17 09:00 10/08/17 09:51 Artificial Tears (Tears Naturale Opth Soln) 1 drop Q8HR EACH EYE 10/08/17 06:00 10/08/17 06:52 Dexmedetomidine HCl 200 mcg/ Sodium Chloride 52 ml @ 4.42 mls/hr TITRATE PRN IV SEDATION 10/08/17 12:00 UNV OBJECTIVE: Vital Signs Date Time Temp Pulse Resp B/P (MAP) Pulse Ox O2 Delivery O2 Flow Rate FiO2 10/08/17 11:30 99 40 10/08/17 10:02 40 10/08/17 10:00 77 10/08/17 08:18 92 30 10/08/17 08:00 98.7 62 16 123/73 (90) 97 10/08/17 08:00 35 10/08/17 08:00 62 10/08/17 06:00 74 10/08/17 04:00 35 10/08/17 04:00 98.4 64 16 129/77 (94) 96 10/08/17 04:00 64 10/08/17 03:43 96 30 10/08/17 02:00 60 10/08/17 00:00 98.4 61 16 146/86 (106) 96 10/08/17 00:00 61 10/08/17 00:00 35 10/07/17 23:48 96 30 10/07/17 22:00 61 10/07/17 21:56 16 10/07/17 21:34 96 30 10/07/17 20:00 75 10/07/17 20:00 35 10/07/17 20:00 99.0 75 18 118/73 (88) 95 10/07/17 18:00 79 10/07/17 16:00 97.8 73 25 107/75 (86) 93 10/07/17 16:00 35 10/07/17 15:47 96 30 10/07/17 14:00 74 Laboratory Tests Test 10/07/17 09:25 10/08/17 05:40 White Blood Count 19.5 TH/MM3 21.9 TH/MM3 Red Blood Count 4.69 MIL/MM3 4.94 MIL/MM3 Hemoglobin 11.4 GM/DL 12.0 GM/DL Hematocrit 36.4 % 37.4 % Mean Corpuscular Volume 77.6 FL 75.8 FL Mean Corpuscular Hemoglobin 24.3 PG 24.2 PG Mean Corpuscular Hemoglobin Concent 31.2 % 31.9 % Red Cell Distribution Width 16.6 % 16.6 % Platelet Count 261 TH/MM3 256 TH/MM3 Mean Platelet Volume 9.9 FL 9.2 FL Neutrophils (%) (Auto) 76.8 % 80.8 % Lymphocytes (%) (Auto) 14.6 % 12.2 % Monocytes (%) (Auto) 7.5 % 6.6 % Eosinophils (%) (Auto) 0.6 % 0.1 % Basophils (%) (Auto) 0.5 % 0.3 % Neutrophils # (Auto) 15.0 TH/MM3 17.7 TH/MM3 Lymphocytes # (Auto) 2.9 TH/MM3 2.7 TH/MM3 Monocytes # (Auto) 1.5 TH/MM3 1.4 TH/MM3 Eosinophils # (Auto) 0.1 TH/MM3 0.0 TH/MM3 Basophils # (Auto) 0.1 TH/MM3 0.1 TH/MM3 CBC Comment AUTO DIFF AUTO DIFF Differential Total Cells Counted 100 100 Neutrophils % (Manual) 73 % 71 % Band Neutrophils % 6 % 2 % Lymphocytes % 10 % 20 % Monocytes % 10 % 4 % Neutrophils # (Manual) 15.6 TH/MM3 16.6 TH/MM3 Myelocytes 1 % 2 % Differential Comment FINAL DIFF MANUAL FINAL DIFF MANUAL Platelet Estimate NORMAL NORMAL Platelet Morphology Comment NORMAL NORMAL Red Cell Morphology Comment NORMAL Metamyelocytes 1 % Laboratory Tests Test 10/07/17 12:33 10/08/17 05:40 Blood Urea Nitrogen 25 MG/DL 25 MG/DL Creatinine 0.78 MG/DL 0.95 MG/DL Random Glucose 158 MG/DL 145 MG/DL Calcium Level 9.7 MG/DL 10.0 MG/DL Phosphorus Level 3.4 MG/DL 4.7 MG/DL Magnesium Level 2.6 MG/DL 2.6 MG/DL Sodium Level 142 MEQ/L 139 MEQ/L Potassium Level 4.1 MEQ/L 4.1 MEQ/L Chloride Level 101 MEQ/L 99 MEQ/L Carbon Dioxide Level 33.8 MEQ/L 32.3 MEQ/L Anion Gap 7 MEQ/L 8 MEQ/L Estimat Glomerular Filtration Rate 94 ML/MIN 75 ML/MIN IMAGING: Chest X-Ray 10/08/17 0600 Signed Impressions: Service Date/Time: September 03:51 - CONCLUSION: Persistent stable left lower lobe consolidation Dre Cooper MD Chest X-Ray 10/07/17 0000 Signed Impressions: Service Date/Time: Saturday, October 07, 2017 03:19 - CONCLUSION: Improving left lower lobe consolidation. Dre Cooper MD Head CT 10/05/17 0000 Signed Impressions: Service Date/Time: Thursday, October 05, 2017 09:32 - CONCLUSION: Negative for acute process. Dajuan Mendez MD FACR Chest X-Ray 10/05/17 0000 Signed Impressions: Service Date/Time: Thursday, October 05, 2017 07:50 - CONCLUSION: 1. Small bilateral effusions with patchy areas of infiltrate. There are air bronchograms seen on the left. Exam is concerning for pneumonia. Syed Mendez MD CT Angiography 09/30/17 1723 Signed Impressions: Service Date/Time: Saturday, September 30, 2017 17:50 - CONCLUSION: 1. Diffuse bilateral pulmonary infiltrates with cylindrical bronchiectasis. 2. No pulmonary embolus. Dre Moseley Jr., MD PHYSICAL EXAMINATION GENERAL: No acute distress. On the ventilator. Responsive. Looks anxious. HEENT: Head atraumatic. Extraocular movements intact. Oropharynx mucosa moist. NECK: No swelling or adenopathy. LUNGS: Clearer. Basilar rhonchi. HEART: Regular, S1-S2 without audible murmurs, rubs or gallops. ABDOMEN: Bowel sounds present, soft, no tenderness. EXTREMITIES: No clubbing or cyanosis or edema. SKIN: No rash. NEURO: Non focal. PSYCH: calm. IMPRESSION 1. Pneumonia. Abnormal CXR. Negative cultures. 2. Leukocytosis secondary to infection. Also on steroids which could be contributing. 3. Acute respiratory failure. 4. Multiple sclerosis. RECOMMENDATIONS 1. Continue vancomycin. 2. Continue azithromycin. 3. Continue piperacillin/tazobactam. 4. Monitor white blood cell count. 5. Monitor clinical status. 6. Antibiotic taper after extubation. Lorenzo Simpson MD Oct 08, 2017 12:13
--- NOTE | 2017-10-08 12:55 | HHI.PR ---
Subjective Remarks Awake intubated and in No distress. On FIO2 35 %. Failed CPAP. again. Will have Precedex CXR with Bilateral infiltrates. Objective Vital Signs Date Time Temp Pulse Resp B/P (MAP) Pulse Ox O2 Delivery O2 Flow Rate FiO2 10/08/17 11:30 99 40 10/08/17 10:02 40 10/08/17 10:00 77 10/08/17 08:18 92 30 10/08/17 08:00 98.7 62 16 123/73 (90) 97 10/08/17 08:00 35 10/08/17 08:00 62 10/08/17 06:00 74 10/08/17 04:00 35 10/08/17 04:00 98.4 64 16 129/77 (94) 96 10/08/17 04:00 64 10/08/17 03:43 96 30 10/08/17 02:00 60 10/08/17 00:00 98.4 61 16 146/86 (106) 96 10/08/17 00:00 61 10/08/17 00:00 35 10/07/17 23:48 96 30 10/07/17 22:00 61 10/07/17 21:56 16 10/07/17 21:34 96 30 10/07/17 20:00 75 10/07/17 20:00 35 10/07/17 20:00 99.0 75 18 118/73 (88) 95 10/07/17 18:00 79 10/07/17 16:00 97.8 73 25 107/75 (86) 93 10/07/17 16:00 35 10/07/17 15:47 96 30 10/07/17 14:00 74 I/O 10/07/17 10/07/17 10/07/17 10/08/17 10/08/17 10/08/17 07:00 15:00 23:00 07:00 15:00 23:00 Intake Total 611 ml 720 ml 560 ml Output Total 300 ml 0 ml 850 ml 800 ml Balance 311 ml 0 ml -130 ml -240 ml Intake IV Total 100 ml Tube Feeding 511 ml 520 ml 480 ml Other 200 ml 80 ml Output Urine Total 300 ml 850 ml 800 ml Tube Feeding Residual Discard 0 ml # Voids 3 # Bowel Movements 2 1 1 Result Diagram: 10/08/17 0540 10/08/1767 Objective Remarks This moderately overweight middle-aged -[place] lady intubated, responsive. HEENT: Head normocephalic. Pupils are reactive. Sclerae are clear. Throat has few secretions. Neck: Supple. No bruits or thyroid enlargement, no lymphadenopathy. Chest: Distant breath sounds with occ wheezes bilaterally and occasional crackles scattered. Heart: Heart sounds are regular, S1-S2 with no murmur. No S3. Abdomen: Soft, obese without masses, no organomegaly or tenderness. Bowel sounds are active. Extremities: Mild edema. No calf tenderness. Reflexes are 1+. The patient is awake and moving all extremities, but somewhat sluggish since she is partially sedated. Skin: No lesions are observed. Assessment and Plan Assessment and Plan IMPRESSION: 1. Bilateral pneumonia. 2. Interstitial lung disease, chronic with reactive airway. 3. Acute respiratory failure. 4. History of multiple sclerosis. 5. Pulmonary Edema Plan : 1. CPAP trial daily. 2. Cont Antibiotics per DR Owusu 3. Duonebs qid. 4. Tube feeds 50 CC 5. CXR ,BMP CBC in am. 6. Solumedrol 40 mg IV BID 7. Bumex 1 mg daily. 8. PT Evaluation Mart Prescott MD Oct 08, 2017 12:55
--- NOTE | 2017-10-08 16:39 | HHI.CCPN ---
Subjective Remarks/Hospital Course 52-year-old unfortunate female patient with history of MS, previous stroke, chronic lung disease, presents to the ER today because she has had worsening dyspnea on exertion end shortness of breath with getting up from bed. She has also been coughing. She states that similar symptoms have happened before and she has been like this since October last year. She states that she has had "fluid in the lungs". She denies any chest pains, fevers, or other symptoms. She is very poor historian. 10/01 Patient was on non rebreather however she was hypoxic, tachycardic, tachypneic and using her accessory muscle for respiration she was subsequently intubated and placed on mechanical ventilation. 10/02 Patient is sedated and intubated. Afebrile. 10/03 No events overnight. Sedated with Versed and Diprivan drips. Afebrile. Tolerating tube feeds. 10/04 Patient remains intubated and sedated with Diprivan. Off Versed. Afebrile 10/05 Patient remains sedated and intubated. Had Liquid stool overnight. 10/06 No events overnight. Off sedation awake and follows commands. Afebrile. 10/07: Afebrile. Complaining of pain in her left upper extremity resolved. Tolerating tube feeding. Appears very complex status post given bumetadine1 mg IV 1 today Subjective 10/08: Afebrile. Tolerating tube feeding. Less than one hour on PSV trial today on Dexmedetomidine Objective Vital Signs Date Time Temp Pulse Resp B/P (MAP) Pulse Ox O2 Delivery O2 Flow Rate FiO2 10/08/17 14:32 35 10/08/17 11:30 99 10/08/17 10:00 77 10/08/17 08:00 98.7 16 123/73 (90) Intake and Output 10/08/17 10/08/17 10/09/17 08:00 16:00 00:00 Intake Total 560 ml Output Total 800 ml Balance -240 ml Result Diagram: 10/08/17 0540 10/08/17 0540 Other Results Microbiology Date/Time Source Procedure Growth Status 09/30/17 20:20 Blood Other Aerobic Blood Culture - Final NO GROWTH IN 5 DAYS Complete 09/30/17 20:20 Blood Other Anaerobic Blood Culture - Final NO GROWTH IN 5 DAYS Complete 10/05/17 11:40 Sputum Endotracheal Gram Stain - Final Complete 10/05/17 11:40 Sputum Endotracheal Sputum Culture - Final LIGHT GROWTH NORMAL RESPIRATORY STEPHON Complete 10/03/17 10:45 Urine Catheterized Urine Streptococcus pneumoniae Antigen (M - Final PRESUMPTIVE NEGATIVE FOR STREPTOCOCCU... Complete Imaging Last Impressions Chest X-Ray 10/08/17 0600 Signed Impressions: Service Date/Time: September 03:51 - CONCLUSION: Persistent stable left lower lobe consolidation Dre Cooper MD Head CT 10/05/17 0000 Signed Impressions: Service Date/Time: Thursday, October 05, 2017 09:32 - CONCLUSION: Negative for acute process. Dajuan Mendez MD FACR CT Angiography 09/30/17 1723 Signed Impressions: Service Date/Time: Saturday, September 30, 2017 17:50 - CONCLUSION: 1. Diffuse bilateral pulmonary infiltrates with cylindrical bronchiectasis. 2. No pulmonary embolus. Dre Moseley Jr., MD Objective Remarks GENERAL: This is a 52-year-old female patient currently orotracheally intubated SKIN: Focused skin assessment warm/dry. HEAD: Atraumatic. Normocephalic. EYES: Pupils equal and round. No scleral icterus. No injection or drainage. ENT: No nasal bleeding or discharge. Mucous membranes pink and moist. NECK: Trachea midline. No JVD. CARDIOVASCULAR: Tachycardic. S1, S2. No S4. No murmur appreciated. RESPIRATORY: Few crackles appreciated in the bases bilaterally. No wheezing GASTROINTESTINAL: Abdomen soft, non-tender, nondistended. Hypoactive bowel sounds appreciated MUSCULOSKELETAL: No obvious deformities. No skin peripheral edema. Neuro: Radial nerves II through XII are grossly intact. Strength is equal symmetric. Normal sensation. Follows commands A/P Assessment and Plan Neuro: MS History of posterior pontine hemorrhagic CVA 2013 History of migraine headaches History of lupus cerebritis? Off sedation. Monitor neuro status. Patient is more awake and alert today CT brain: No acute process EEG - no epileptiform activity Neurology has followed Dr. Parks Pulsandor: Acute respiratory failure Interstitial lung disease Continue with vent support keep sat >92% On PRVC/AC RR 16, TV 500, PEEP:5, I time of 1, FIO2: 30 Albuterol/ipratropium aerosols every 6 hours and albuterol aerosols every 2 hours. Dyspnea, ICU vent bundle. Methylprednisolone succinate 40mg Q12 SBT daily as elodia. CV: Monitor HR and BP keep MAP>65mmHg Echo showed the left ventricular systolic function is normal with an estimated ejection fraction in the range of 60-65%. Normal left ventricular size. Wall thickness is normal. No regional wall motion abnormalities are present. There is mild tricuspid valve regurgitation. The estimated pulmonary arterial pressure is 52.8 mmHg. Trivial pulmonary valve regurgitation. /FEN: Monitor renal function, I/O's, electrolytes replacement per protocol. GI: Hypoalbuminemia Gastroesophageal reflux disease On famotidine for GI prophylaxis. On tube feeds-Glucerna 1.5 @ 45ml/hr. Nutrition recommends vital high protein 45 cc an hour ID: Continue with abx (piperacillin/tazobactam, Azithromycin, vancomycin) monitor for signs of infections ( Fever, WBC) strep pneumonia, Legionella urinary Ag, Influenza screening all negative. BC 09/30: NGTD, sputum cx: normal resp stephon Check C-diff PCR r/o c-diff Heme: Leukocytosis Microcytosis Monitor CBC Endo: Hyperglycemia SSI Novulin R with Accu-Cheks every 4 hours at moderate regimen for glycemic control, insulin detemir 5uQ12. 10 units sliding scale insulin past 24 hours GI prophylaxis- on famotidine DVT prophylaxis- SCD, Heparin SQ. Level II follow-up Zeus Greene MD Oct 08, 2017 16:39
[2017-10-08] MEDS: AZITHROMYCIN INJ 500 MG in SODIUM CHLOR 0.9% 250 ML INJ 250 ML IV SCH (21:15)
[2017-10-09] VITALS (20 sets, daily range): BP systolic 106–132; BP diastolic 67–84; PULSE 60–101; RESP 16–37; TEMP 98.3–98.7; O2SAT 97–100
[2017-10-09] MEDS: INSULIN NovoLIN REGULAR SUPPLEMENTAL SCALE SQ SCH ×6 (02:00→21:27)
[2017-10-09] MEDS: PIPERACIL-TAZO 4.5 GM PREMIX 100 ML IV SCH ×4 (02:07→21:25)
[2017-10-09] MEDS: RESP: ALBUTEROL 2.5 MG/IPRATROPIUM 0.5 MG NEB (SCH) NEB ×3 (02:47→20:14)
[2017-10-09] MEDS: CHLORHEXIDINE GLUCONATE 2 % 1 PACK (2 CLOTHS) TOP SCH (03:39)
[2017-10-09] MEDS: HEPARIN SODIUM - SQ 10,000 UNITS/ML VIAL SQ SCH ×3 (03:39→20:00)
[2017-10-09] MEDS: ARTIFICIAL TEARS OPTH SOLN 15 ML BTL EACH EYE SCH ×3 (06:00→21:26)
[2017-10-09] MEDS: ASPIRIN 81 MG CHEW TAB PO SCH (09:00)
[2017-10-09] MEDS: FERROUS SULFATE 300 MG /5ML UDC OG-TUBE SCH (09:00)
[2017-10-09] MEDS: INSULIN DETEMIR 100 UNITS/ML VIAL SQ SCH ×2 (09:00→21:00)
[2017-10-09] MEDS: DOCUSATE SODIUM 50 MG/SENNA 8.6 MG TAB PO SCH ×2 (09:00→21:00)
[2017-10-09] MEDS: BACLOFEN 10 MG TAB PO SCH ×3 (09:17→17:30)
[2017-10-09] MEDS: BUMETANIDE 1 MG TAB PO SCH (09:17)
[2017-10-09] MEDS: FAMOTIDINE 20 MG TAB NG SCH ×2 (09:17→21:25)
[2017-10-09] MEDS: methylPREDNISolone SOD SUCC 40 MG/1 ML VIAL IV PUSH SCH ×2 (09:17→21:25)
[2017-10-09] MEDS: SODIUM CHLORIDE 0.9% FLUSH 10 ML FLUSH IV FLUSH SCH ×2 (09:18→21:25)
--- NOTE | 2017-10-09 09:45 | HHI.CCPN ---
Subjective Remarks/Hospital Course 52-year-old unfortunate female patient with history of MS, previous stroke, chronic lung disease, presents to the ER today because she has had worsening dyspnea on exertion end shortness of breath with getting up from bed. She has also been coughing. She states that similar symptoms have happened before and she has been like this since October last year. She states that she has had "fluid in the lungs". She denies any chest pains, fevers, or other symptoms. She is very poor historian. 10/01 Patient was on non rebreather however she was hypoxic, tachycardic, tachypneic and using her accessory muscle for respiration she was subsequently intubated and placed on mechanical ventilation. 10/02 Patient is sedated and intubated. Afebrile. 10/03 No events overnight. Sedated with Versed and Diprivan drips. Afebrile. Tolerating tube feeds. 10/04 Patient remains intubated and sedated with Diprivan. Off Versed. Afebrile 10/05 Patient remains sedated and intubated. Had Liquid stool overnight. 10/06 No events overnight. Off sedation awake and follows commands. Afebrile. 10/07: Afebrile. Complaining of pain in her left upper extremity resolved. Tolerating tube feeding. Appears very complex status post given bumetadine1 mg IV 1 today Subjective 10/08: Afebrile. Tolerating tube feeding. Less than one hour on PSV trial today on Dexmedetomidine 10/09 Patient remains intubated on no sedation. Awake and alert. Objective Vital Signs Date Time Temp Pulse Resp B/P (MAP) Pulse Ox O2 Delivery O2 Flow Rate FiO2 10/09/17 08:55 98 35 10/09/17 06:00 87 10/09/17 04:00 98.3 17 114/78 (90) Intake and Output 10/09/17 10/09/17 10/09/17 07:59 15:59 23:59 Intake Total 650 ml Output Total 1150 ml Balance -500 ml Result Diagram: 10/08/17 0540 10/08/17 0540 Imaging Last Impressions Chest X-Ray 10/08/17 0600 Signed Impressions: Service Date/Time: September 03:51 - CONCLUSION: Persistent stable left lower lobe consolidation Dre Cooper MD Head CT 10/05/17 0000 Signed Impressions: Service Date/Time: Thursday, October 05, 2017 09:32 - CONCLUSION: Negative for acute process. Dajuan Mendez MD FACR CT Angiography 09/30/17 1723 Signed Impressions: Service Date/Time: Saturday, September 30, 2017 17:50 - CONCLUSION: 1. Diffuse bilateral pulmonary infiltrates with cylindrical bronchiectasis. 2. No pulmonary embolus. Dre Moseley Jr., MD Objective Remarks GENERAL: This is a 52-year-old female patient currently orotracheally intubated SKIN: Focused skin assessment warm/dry. HEAD: Atraumatic. Normocephalic. EYES: Pupils equal and round. No scleral icterus. No injection or drainage. ENT: No nasal bleeding or discharge. Mucous membranes pink and moist. NECK: Trachea midline. No JVD. CARDIOVASCULAR: Tachycardic. S1, S2. No S4. No murmur appreciated. RESPIRATORY: Few crackles appreciated in the bases bilaterally. No wheezing GASTROINTESTINAL: Abdomen soft, non-tender, nondistended. Hypoactive bowel sounds appreciated MUSCULOSKELETAL: No obvious deformities. No skin peripheral edema. Neuro: Radial nerves II through XII are grossly intact. Strength is equal symmetric. Normal sensation. Follows commands A/P Assessment and Plan Neuro: MS History of posterior pontine hemorrhagic CVA 2012 History of migraine headaches History of lupus cerebritis? Off sedation. Monitor neuro status. Awake and alert CT brain: No acute process EEG - no epileptiform activity Neurology has followed Dr. Parks Pulm: Acute respiratory failure Interstitial lung disease Continue with vent support keep sat >92% On PRVC/AC RR 16, TV 500, PEEP:5, I time of 1, FIO2: 35 Albuterol/ipratropium aerosols every 6 hours and albuterol aerosols every 2 hours. Dyspnea, ICU vent bundle. Methylprednisolone succinate 40mg Q12 SBT daily as elodia. On Solumederol 40mg Q12 CV: Monitor HR and BP keep MAP>65mmHg Echo showed the left ventricular systolic function is normal with EF 60-65%. Normal left ventricular size. Wall thickness is normal. No regional wall motion abnormalities are present. There is mild tricuspid valve regurgitation. The estimated pulmonary arterial pressure is 52.8 mmHg. Trivial pulmonary valve regurgitation. /FEN: Monitor renal function, I/O's, electrolytes replacement per protocol. GI: Hypoalbuminemia Gastroesophageal reflux disease On famotidine for GI prophylaxis. Change tubes feeds- Vital high protein @ 45ml/ hr per Nutrition recommends. ID: Continue with abx (piperacillin/tazobactam, Azithromycin, vancomycin) monitor for signs of infections ( Fever, WBC) strep pneumonia, Legionella urinary Ag, Influenza screening all negative. BC 09/30: NGTD, sputum cx: normal resp stephon ID is following Heme: Leukocytosis Microcytosis Monitor CBC Endo: Hyperglycemia SSI Novulin R with Accu-Cheks every 4 hours at moderate regimen for glycemic control, Insulin detemir 5uQ12. GI prophylaxis- on famotidine DVT prophylaxis- SCD, Heparin SQ. Check labs today Level III Tessa Burleson MD Oct 09, 2017 09:44
[2017-10-09 11:46] LABS: BASOPHIL # 0.1 TH/MM3 (0-0.2); BASOPHIL % 0.3 % (0.0-2.0); EOSINOPHIL # 0.1 TH/MM3 (0-0.4); EOSINOPHIL % 0.5 % (0.0-4.0); HEMATOCRIT 36.7 % (35.0-46.0); HEMOGLOBIN 11.5 GM/DL (11.6-15.3); LYMPH % 17.3 % (9.0-44.0); LYMPHOCYTE # 3.8 TH/MM3 (1.0-4.8); MEAN CELL VOLUME 76.6 FL (80.0-100.0); MEAN CORPUSCULAR HGB CONC 31.3 % (32.0-36.0); MEAN PLATELET VOLUME 9.9 FL (7.0-11.0); MONO % 8.8 % (0.0-8.0); MONOCYTE # 1.9 TH/MM3 (0-0.9); NEUT % 73.1 % (16.0-70.0); PLATELET COUNT 246 TH/MM3 (150-450); RED BLOOD COUNT 4.79 MIL/MM3 (4.00-5.30); RED CELL DISTRIBUTION WIDTH 16.3 % (11.6-17.2); WHITE BLOOD COUNT 21.9 TH/MM3 (4.0-11.0)
--- NOTE | 2017-10-09 11:59 | HHI.IDPN ---
Note Infectious Disease Note Patient is awake and very alert on the vent. Appears frustrated based on her gestures. Afebrile. Has some foamy secretions at her mouth. Presented to the emergency department with hypoxia and respiratory distress. The patient has history of multiple sclerosis. She was noted to have cough. She has had multiple recent hospitalizations for pneumonia over the past few months including two at [facility] before this current admission here at [place]. CT scan of the lungs showed diffuse bilateral pulmonary infiltrates. The patient was admitted and started on antibiotics. PAST MEDICAL HISTORY 1. Multiple sclerosis. The patient has not been on medication for the past 2 years, per her son's report. 2. Hypertension. 3. Gastroesophageal reflux. 4. Chronic lung disease. 5. Hysterectomy. ALLERGIES LASIX, LATEX. ANTIBIOTICS: 1. Vancomycin. 2. Azithromycin. 3. Piperacillin / tazobactam. OBJECTIVE: Vital Signs Date Time Temp Pulse Resp B/P (MAP) Pulse Ox O2 Delivery O2 Flow Rate FiO2 10/09/17 08:55 98 35 10/09/17 06:00 87 10/09/17 04:03 99 35 10/09/17 04:00 68 10/09/17 04:00 35 10/09/17 04:00 98.3 68 17 114/78 (90) 98 10/09/17 02:00 60 10/09/17 00:11 100 35 10/09/17 00:00 63 10/09/17 00:00 98.3 63 16 111/74 (86) 99 10/09/17 00:00 35 10/08/17 22:00 69 10/08/17 20:01 99 35 10/08/17 20:00 98.4 75 16 112/74 (87) 97 10/08/17 20:00 35 10/08/17 20:00 75 10/08/17 18:00 90 10/08/17 17:27 98 35 10/08/17 16:00 98.1 61 16 106/60 (75) 97 10/08/17 16:00 35 10/08/17 16:00 58 10/08/17 16:00 61 10/08/17 14:32 35 10/08/17 14:00 58 10/08/17 13:00 62 10/08/17 12:00 97.9 67 16 117/78 (91) 98 10/08/17 12:00 35 10/08/17 12:00 67 Laboratory Tests Test 10/08/17 05:40 10/09/17 10:44 White Blood Count 21.9 TH/MM3 21.9 TH/MM3 Red Blood Count 4.94 MIL/MM3 4.79 MIL/MM3 Hemoglobin 12.0 GM/DL 11.5 GM/DL Hematocrit 37.4 % 36.7 % Mean Corpuscular Volume 75.8 FL 76.6 FL Mean Corpuscular Hemoglobin 24.2 PG 24.0 PG Mean Corpuscular Hemoglobin Concent 31.9 % 31.3 % Red Cell Distribution Width 16.6 % 16.3 % Platelet Count 256 TH/MM3 246 TH/MM3 Mean Platelet Volume 9.2 FL 9.9 FL Neutrophils (%) (Auto) 80.8 % 73.1 % Lymphocytes (%) (Auto) 12.2 % 17.3 % Monocytes (%) (Auto) 6.6 % 8.8 % Eosinophils (%) (Auto) 0.1 % 0.5 % Basophils (%) (Auto) 0.3 % 0.3 % Neutrophils # (Auto) 17.7 TH/MM3 16.0 TH/MM3 Lymphocytes # (Auto) 2.7 TH/MM3 3.8 TH/MM3 Monocytes # (Auto) 1.4 TH/MM3 1.9 TH/MM3 Eosinophils # (Auto) 0.0 TH/MM3 0.1 TH/MM3 Basophils # (Auto) 0.1 TH/MM3 0.1 TH/MM3 CBC Comment AUTO DIFF AUTO DIFF Differential Total Cells Counted 100 Neutrophils % (Manual) 71 % Band Neutrophils % 2 % Lymphocytes % 20 % Monocytes % 4 % Neutrophils # (Manual) 16.6 TH/MM3 Metamyelocytes 1 % Myelocytes 2 % Differential Comment FINAL DIFF MANUAL Platelet Estimate NORMAL Platelet Morphology Comment NORMAL Laboratory Tests Test 10/07/17 12:33 10/08/17 05:40 10/09/17 10:44 Blood Urea Nitrogen 25 MG/DL 25 MG/DL Creatinine 0.78 MG/DL 0.95 MG/DL Random Glucose 158 MG/DL 145 MG/DL Calcium Level 9.7 MG/DL 10.0 MG/DL Phosphorus Level 3.4 MG/DL 4.7 MG/DL Magnesium Level 2.6 MG/DL 2.6 MG/DL Sodium Level 142 MEQ/L 139 MEQ/L Potassium Level 4.1 MEQ/L 4.1 MEQ/L Chloride Level 101 MEQ/L 99 MEQ/L Carbon Dioxide Level 33.8 MEQ/L 32.3 MEQ/L Anion Gap 7 MEQ/L 8 MEQ/L Estimat Glomerular Filtration Rate 94 ML/MIN 75 ML/MIN IMAGING: Chest X-Ray 10/08/17 0600 Signed Impressions: Service Date/Time: September 03:51 - CONCLUSION: Persistent stable left lower lobe consolidation Dre Cooper MD Chest X-Ray 10/07/17 0000 Signed Impressions: Service Date/Time: Saturday, October 07, 2017 03:19 - CONCLUSION: Improving left lower lobe consolidation. Dre Cooper MD Head CT 10/05/17 0000 Signed Impressions: Service Date/Time: Thursday, October 05, 2017 09:32 - CONCLUSION: Negative for acute process. Dajuan Mendez MD FACR Chest X-Ray 10/05/17 0000 Signed Impressions: Service Date/Time: Thursday, October 05, 2017 07:50 - CONCLUSION: 1. Small bilateral effusions with patchy areas of infiltrate. There are air bronchograms seen on the left. Exam is concerning for pneumonia. Syed Mendez MD CT Angiography 09/30/17 1723 Signed Impressions: Service Date/Time: Saturday, September 30, 2017 17:50 - CONCLUSION: 1. Diffuse bilateral pulmonary infiltrates with cylindrical bronchiectasis. 2. No pulmonary embolus. Dre Moseley Jr., MD PHYSICAL EXAMINATION GENERAL: No acute distress. On the ventilator. Responsive. Looks anxious. HEENT: No icterus. Oropharynx mucosa moist. NECK: No swelling or adenopathy. LUNGS: Rhonchi at the bases. HEART: Regular, S1-S2 without audible murmurs, rubs or gallops. ABDOMEN: Bowel sounds present, soft, no tenderness. EXTREMITIES: No clubbing or cyanosis or edema. SKIN: No rash. NEURO: Non focal. IMPRESSION 1. Pneumonia. Abnormal CXR. Negative cultures. 2. Leukocytosis secondary to infection. Also on steroids which could be contributing. 3. Acute respiratory failure. On the vent. 4. Multiple sclerosis. RECOMMENDATIONS 1. Continue vancomycin. 2. Continue azithromycin. 3. Continue piperacillin/tazobactam. 4. Monitor white blood cell count. 5. Monitor clinical status. 6. Antibiotic taper after extubation. Lorenzo Simpson MD Oct 09, 2017 11:59
[2017-10-09 12:12] LABS: BICARBONATE 31.3 MEQ/L (21.0-32.0); CALCIUM 9.2 MG/DL (8.5-10.1); CREATININE 0.75 MG/DL (0.50-1.00)
[2017-10-09 12:29] LABS: LYMPHOCYTES 22 % (9-44); METAMYELOCYTES 1 % (0-1); MONOCYTES 4 % (0-8); MYELOCYTES 4 % (0-0); NEUTROPHIL # MANUAL DIFF 16.2 TH/MM3 (1.8-7.7); POLYS (SEG NEUTROPHILS) 69 % (16-70)
[2017-10-09] MEDS: VANCOMYCIN 1,500 MG/NS 500 ML IV SCH ×2 (17:30)
--- NOTE | 2017-10-09 20:20 | HHI.PR ---
Subjective Remarks Awake intubated and in No distress. On FIO2 35 %. Failed CPAP. again. On Precedex CXR with Bilateral infiltrates. Output was good. Objective Vital Signs Date Time Temp Pulse Resp B/P (MAP) Pulse Ox O2 Delivery O2 Flow Rate FiO2 10/09/17 20:14 99 Ventilator 35 10/09/17 20:14 99 35 10/09/17 18:00 74 10/09/17 16:00 84 10/09/17 16:00 98.4 84 21 118/69 (85) 97 10/09/17 16:00 72 10/09/17 16:00 35 10/09/17 15:53 97 35 10/09/17 14:00 72 10/09/17 12:00 35 10/09/17 12:00 82 10/09/17 12:00 98.3 85 26 106/77 (87) 97 10/09/17 11:53 99 35 10/09/17 11:00 83 10/09/17 10:00 82 10/09/17 09:00 86 10/09/17 08:55 98 35 10/09/17 08:00 78 10/09/17 08:00 98.7 78 17 107/67 (80) 99 10/09/17 08:00 35 10/09/17 06:00 87 10/09/17 04:03 99 35 10/09/17 04:00 68 10/09/17 04:00 35 10/09/17 04:00 98.3 68 17 114/78 (90) 98 10/09/17 02:00 60 10/09/17 00:11 100 35 10/09/17 00:00 63 10/09/17 00:00 98.3 63 16 111/74 (86) 99 10/09/17 00:00 35 10/08/17 22:00 69 I/O 10/08/17 10/08/17 10/08/17 10/09/17 10/09/17 10/09/17 07:00 15:00 23:00 07:00 15:00 23:00 Intake Total 560 ml 1700 ml 650 ml 240 ml Output Total 800 ml 1300 ml 1150 ml 1300 ml Balance -240 ml 400 ml -500 ml -1060 ml Intake IV Total 1215 ml Tube Feeding 480 ml 365 ml 450 ml Tube Irrigant 200 ml Other 80 ml 120 ml 240 ml Output Urine Total 800 ml 1300 ml 850 ml 1000 ml Stool Total 300 ml 300 ml # Bowel Movements 1 6 2 Objective Remarks This moderately overweight middle-aged -[place] lady intubated, responsive. HEENT: Head normocephalic. Pupils are reactive. Sclerae are clear. Throat has few secretions. Neck: Supple. No bruits or thyroid enlargement, no lymphadenopathy. Chest: Distant breath sounds with occ wheezes bilaterally and occasional crackles at bases . Heart: Heart sounds are regular, S1-S2 with no murmur. No S3. Abdomen: Soft, obese without masses, no organomegaly or tenderness. Bowel sounds are active. Extremities: Mild edema. No calf tenderness. Reflexes are 1+. The patient is awake and moving all extremities. Cooperative. Skin: No lesions are observed. Assessment and Plan Assessment and Plan IMPRESSION: 1. Bilateral pneumonia. 2. Interstitial lung disease, chronic with reactive airway. 3. Acute respiratory failure. 4. History of multiple sclerosis. 5. Pulmonary Edema Plan : 1. CPAP trial daily.FIO2 35 % 2. Cont Antibiotics as ordered 3. Duonebs qid. 4. Tube feeds 50 CC 5. CXR ,BMP CBC in am. 6. Solumedrol 40 mg IV BID 7. Bumex 1 mg IV daily. 8. PT Evaluation 9. Extubation if she meets Criteria Mart Prescott MD Oct 09, 2017 20:20
[2017-10-09] MEDS: AZITHROMYCIN INJ 500 MG in SODIUM CHLOR 0.9% 250 ML INJ 250 ML IV SCH (21:25)
[2017-10-09] MEDS: MORPHINE SULFATE 2 MG/ML INJ IV PUSH PRN (22:06)
[2017-10-10] VITALS (19 sets, daily range): BP systolic 120–137; BP diastolic 70–83; PULSE 68–93; RESP 16–43; TEMP 97.3–98.6; O2SAT 95–99
[2017-10-10] MEDS: PIPERACIL-TAZO 4.5 GM PREMIX 100 ML IV SCH ×4 (03:07→20:03)
[2017-10-10] MEDS: MORPHINE SULFATE 2 MG/ML INJ IV PUSH PRN (03:07)
[2017-10-10] MEDS: HEPARIN SODIUM - SQ 10,000 UNITS/ML VIAL SQ SCH ×3 (03:16→20:00)
[2017-10-10] MEDS: INSULIN NovoLIN REGULAR SUPPLEMENTAL SCALE SQ SCH ×6 (03:16→22:00)
[2017-10-10] MEDS: CHLORHEXIDINE GLUCONATE 2 % 1 PACK (2 CLOTHS) TOP SCH (03:17)
[2017-10-10] MEDS: RESP: ALBUTEROL 2.5 MG/IPRATROPIUM 0.5 MG NEB (SCH) NEB ×7 (04:22→23:56)
--- NOTE | 2017-10-10 04:31 | RADRPT ---
EXAM DATE/TIME: 10/10/2017 03:28 [facility] COMPARISON: CHEST SINGLE AP, October 08, 2017, 3:51. INDICATIONS : Shortness of breath, possible pulmonary disease. MEDICAL HISTORY : Hypertension. Cardiovascular disease. SURGICAL HISTORY : None. ENCOUNTER: Subsequent ACUITY: 1 week PAIN SCORE: Non-responsive. LOCATION: Bilateral chest FINDINGS: The ET tube and NG tube are well placed. The heart size is normal. There is increased density at the medial right base with silhouetting right heart border. There also appears be some patchy density at the left base. CONCLUSION: Patchy density at the bases likely related to mild atelectasis or consolidation. Fernando Ann MD on October 10, 2017 at 4:27 Board Certified Radiologist. This report was verified electronically.
[2017-10-10 04:55] LABS: AUTOMATED NEUTROPHIL # 16.7 TH/MM3 (1.8-7.7); BASOPHIL # 0.1 TH/MM3 (0-0.2); BASOPHIL % 0.4 % (0.0-2.0); EOSINOPHIL % 0.2 % (0.0-4.0); HEMATOCRIT 35.5 % (35.0-46.0); HEMOGLOBIN 11.3 GM/DL (11.6-15.3); LYMPH % 10.6 % (9.0-44.0); LYMPHOCYTE # 2.1 TH/MM3 (1.0-4.8); MEAN CELL VOLUME 75.9 FL (80.0-100.0); MEAN CORPUSCULAR HEMOGLOBIN 24.2 PG (27.0-34.0); MEAN CORPUSCULAR HGB CONC 31.8 % (32.0-36.0); MEAN PLATELET VOLUME 9.6 FL (7.0-11.0); MONO % 4.8 % (0.0-8.0); PLATELET COUNT 247 TH/MM3 (150-450); RED BLOOD COUNT 4.67 MIL/MM3 (4.00-5.30); RED CELL DISTRIBUTION WIDTH 16.3 % (11.6-17.2); WHITE BLOOD COUNT 19.9 TH/MM3 (4.0-11.0)
[2017-10-10 05:38] LABS: ALBUMIN 2.8 GM/DL (3.4-5.0); ALKALINE PHOSPHATASE 67 U/L (45-117); ALT (GPT) 22 U/L (10-53); AST (GOT) 12 U/L (15-37); BICARBONATE 30.6 MEQ/L (21.0-32.0); BLOOD UREA NITROGEN 24 MG/DL (7-18); CALCIUM 9.2 MG/DL (8.5-10.1); CHLORIDE 103 MEQ/L (98-107); CREATININE 0.82 MG/DL (0.50-1.00); GLOMERULAR FILTRATION RATE 89 ML/MIN (>89); GLUCOSE,RANDOM 204 MG/DL (74-106); MAGNESIUM 2.5 MG/DL (1.5-2.5); PHOSPHORUS 3.1 MG/DL (2.5-4.9); SODIUM (NA) 140 MEQ/L (136-145); TOTAL BILIRUBIN ADULT 0.4 MG/DL (0.2-1.0); TOTAL PROTEIN 7.3 GM/DL (6.4-8.2)
[2017-10-10] MEDS: ARTIFICIAL TEARS OPTH SOLN 15 ML BTL EACH EYE SCH ×3 (05:59→22:00)
[2017-10-10 06:15] LABS: BANDS 2 % (0-6); LYMPHOCYTES 10 % (9-44); METAMYELOCYTES 2 % (0-1); MONOCYTES 5 % (0-8); MYELOCYTES 2 % (0-0); NEUTROPHIL # MANUAL DIFF 16.9 TH/MM3 (1.8-7.7); POLYS (SEG NEUTROPHILS) 79 % (16-70)
[2017-10-10 06:16] LABS: SPHEROCYTES OCC (NORMAL)
--- NOTE | 2017-10-10 08:35 | HHI.CCPN ---
Subjective Remarks/Hospital Course 52-year-old unfortunate female patient with history of MS, previous stroke, chronic lung disease, presents to the ER today because she has had worsening dyspnea on exertion end shortness of breath with getting up from bed. She has also been coughing. She states that similar symptoms have happened before and she has been like this since October last year. She states that she has had "fluid in the lungs". She denies any chest pains, fevers, or other symptoms. She is very poor historian. 10/01 Patient was on non rebreather however she was hypoxic, tachycardic, tachypneic and using her accessory muscle for respiration she was subsequently intubated and placed on mechanical ventilation. 10/02 Patient is sedated and intubated. Afebrile. 10/03 No events overnight. Sedated with Versed and Diprivan drips. Afebrile. Tolerating tube feeds. 10/04 Patient remains intubated and sedated with Diprivan. Off Versed. Afebrile 10/05 Patient remains sedated and intubated. Had Liquid stool overnight. 10/06 No events overnight. Off sedation awake and follows commands. Afebrile. 10/07: Afebrile. Complaining of pain in her left upper extremity resolved. Tolerating tube feeding. Appears very complex status post given bumetadine1 mg IV 1 today Subjective 10/08: Afebrile. Tolerating tube feeding. Less than one hour on PSV trial today on Dexmedetomidine 10/09 Patient remains intubated on no sedation. Awake and alert. 10/10 No events overnight. Remains intubated on no sedation. Awake and alert. Afebrile. Objective Vital Signs Date Time Temp Pulse Resp B/P (MAP) Pulse Ox O2 Delivery O2 Flow Rate FiO2 10/10/17 07:51 95 35 10/10/17 06:00 68 10/10/17 04:00 98.6 17 120/70 (87) 10/09/17 20:14 Ventilator Intake and Output 10/10/17 10/10/17 10/11/17 08:00 16:00 00:00 Intake Total 400 ml Output Total 900 ml Balance -500 ml Result Diagram: 10/10/17 0429 10/10/17 0429 Other Results Laboratory Tests Test 1/26/18 10:44 10/09/17:37 10/10/17 04:29 White Blood Count 21.9 TH/MM3 19.9 TH/MM3 Red Blood Count 4.79 MIL/MM3 4.67 MIL/MM3 Hemoglobin 11.5 GM/DL 11.3 GM/DL Hematocrit 36.7 % 35.5 % Mean Corpuscular Volume 76.6 FL 75.9 FL Mean Corpuscular Hemoglobin 24.0 PG 24.2 PG Mean Corpuscular Hemoglobin Concent 31.3 % 31.8 % Red Cell Distribution Width 16.3 % 16.3 % Platelet Count 246 TH/MM3 247 TH/MM3 Mean Platelet Volume 9.9 FL 9.6 FL Neutrophils (%) (Auto) 73.1 % 84.0 % Lymphocytes (%) (Auto) 17.3 % 10.6 % Monocytes (%) (Auto) 8.8 % 4.8 % Eosinophils (%) (Auto) 0.5 % 0.2 % Basophils (%) (Auto) 0.3 % 0.4 % Neutrophils # (Auto) 16.0 TH/MM3 16.7 TH/MM3 Lymphocytes # (Auto) 3.8 TH/MM3 2.1 TH/MM3 Monocytes # (Auto) 1.9 TH/MM3 1.0 TH/MM3 Eosinophils # (Auto) 0.1 TH/MM3 0.0 TH/MM3 Basophils # (Auto) 0.1 TH/MM3 0.1 TH/MM3 CBC Comment AUTO DIFF AUTO DIFF Differential Total Cells Counted 100 100 Neutrophils % (Manual) 69 % 79 % Lymphocytes % 22 % 10 % Monocytes % 4 % 5 % Neutrophils # (Manual) 16.2 TH/MM3 16.9 TH/MM3 Metamyelocytes 1 % 2 % Myelocytes 4 % 2 % Differential Comment FINAL DIFF MANUAL FINAL DIFF MANUAL Platelet Estimate NORMAL NORMAL Platelet Morphology Comment NORMAL NORMAL Red Cell Morphology Comment NORMAL Blood Urea Nitrogen 25 MG/DL 24 MG/DL Creatinine 0.75 MG/DL 0.82 MG/DL Random Glucose 117 MG/DL 204 MG/DL Calcium Level 9.2 MG/DL 9.2 MG/DL Sodium Level 142 MEQ/L 140 MEQ/L Potassium Level 3.7 MEQ/L 4.1 MEQ/L Chloride Level 103 MEQ/L 103 MEQ/L Carbon Dioxide Level 31.3 MEQ/L 30.6 MEQ/L Anion Gap 8 MEQ/L 6 MEQ/L Estimat Glomerular Filtration Rate 99 ML/MIN 89 ML/MIN Stool C. difficile Toxin (PCR) NEGATIVE Stl C. difficile Toxin Epiderm 027 PRESUMPTIVE NEGATIVE Band Neutrophils % 2 % Basophilic Stippling FAINT Spherocytes OCC Total Protein 7.3 GM/DL Albumin 2.8 GM/DL Phosphorus Level 3.1 MG/DL Magnesium Level 2.5 MG/DL Alkaline Phosphatase 67 U/L Aspartate Amino Transf (AST/SGOT) 12 U/L Alanine Aminotransferase (ALT/SGPT) 22 U/L Total Bilirubin 0.4 MG/DL Imaging Last Impressions Chest X-Ray 10/10/17 0600 Signed Impressions: Service Date/Time: Tuesday, October 10, 2017 03:28 - CONCLUSION: Patchy density at the bases likely related to mild atelectasis or consolidation. Fernando Ann MD Head CT 10/05/17 0000 Signed Impressions: Service Date/Time: Thursday, October 05, 2017 09:32 - CONCLUSION: Negative for acute process. Dajuan Mendez MD FACR CT Angiography 09/30/17 1723 Signed Impressions: Service Date/Time: Saturday, September 30, 2017 17:50 - CONCLUSION: 1. Diffuse bilateral pulmonary infiltrates with cylindrical bronchiectasis. 2. No pulmonary embolus. Dre Moseley Jr., MD Objective Remarks GENERAL: This is a 52-year-old female patient currently orotracheally intubated SKIN: Focused skin assessment warm/dry. HEAD: Atraumatic. Normocephalic. EYES: Pupils equal and round. No scleral icterus. No injection or drainage. ENT: No nasal bleeding or discharge. Mucous membranes pink and moist. NECK: Trachea midline. No JVD. CARDIOVASCULAR: Tachycardic. S1, S2. No S4. No murmur appreciated. RESPIRATORY: Few crackles appreciated in the bases bilaterally. No wheezing GASTROINTESTINAL: Abdomen soft, non-tender, nondistended. Hypoactive bowel sounds appreciated MUSCULOSKELETAL: No obvious deformities. No skin peripheral edema. Neuro: Radial nerves II through XII are grossly intact. Strength is equal symmetric. Normal sensation. Follows commands A/P Assessment and Plan Neuro: MS History of posterior pontine hemorrhagic CVA 2012 History of migraine headaches History of lupus cerebritis? Off sedation. Monitor neuro status. Awake and alert CT brain: No acute process EEG - no epileptiform activity Neurology has followed Dr. Kasey Brennan: Acute respiratory failure Interstitial lung disease Continue with vent support keep sat >92% On PRVC/AC RR 16, TV 500, PEEP:5, I time of 1, FIO2: 35 Albuterol/ipratropium aerosols every 6 hours and albuterol aerosols every 2 hours. Dyspnea, ICU vent bundle. Methylprednisolone succinate 40mg Q12 SBT daily as elodia. Decrease Solumederol 40mg daily CV: Monitor HR and BP keep MAP>65mmHg Echo showed the left ventricular systolic function is normal with EF 60-65%. Normal left ventricular size. Wall thickness is normal. No regional wall motion abnormalities are present. There is mild tricuspid valve regurgitation. The estimated pulmonary arterial pressure is 52.8 mmHg. Trivial pulmonary valve regurgitation. /FEN: Monitor renal function, I/O's, electrolytes replacement per protocol. On Bumex 1mg daily GI: Hypoalbuminemia Gastroesophageal reflux disease On famotidine for GI prophylaxis. Vital high protein @ 45ml/hr per Nutrition recommends. ID: Continue with abx (piperacillin/tazobactam, Azithromycin, vancomycin) monitor for signs of infections ( Fever, WBC) strep pneumonia, Legionella urinary Ag, Influenza screening all negative. BC 09/30: NGTD, sputum cx: normal resp stephon ID is following Heme: Leukocytosis Microcytosis Monitor CBC Endo: Hyperglycemia SSI Novulin R with Accu-Cheks every 4 hours at moderate regimen for glycemic control, Insulin detemir 5uQ12. GI prophylaxis- on famotidine DVT prophylaxis- SCD, Heparin SQ. Level III Tessa Burleson MD Oct 10, 2017 08:35
[2017-10-10] MEDS: BUMETANIDE 1 MG TAB PO SCH (08:46)
[2017-10-10] MEDS: BACLOFEN 10 MG TAB PO SCH ×3 (08:46→18:00)
[2017-10-10] MEDS: FAMOTIDINE 20 MG TAB NG SCH ×2 (08:46→20:04)
[2017-10-10] MEDS: FERROUS SULFATE 300 MG /5ML UDC OG-TUBE SCH (08:47)
[2017-10-10] MEDS: SODIUM CHLORIDE 0.9% FLUSH 10 ML FLUSH IV FLUSH SCH ×2 (08:47→20:04)
[2017-10-10] MEDS: ASPIRIN 81 MG CHEW TAB PO SCH (08:47)
[2017-10-10] MEDS: DOCUSATE SODIUM 50 MG/SENNA 8.6 MG TAB PO SCH ×2 (08:47→20:04)
[2017-10-10] MEDS: methylPREDNISolone SOD SUCC 40 MG/1 ML VIAL IV PUSH SCH (08:47)
[2017-10-10] MEDS ORDERED: RESP: ALBUTEROL 2.5 MG/IPRATROPIUM 0.5 MG NEB (PRN) NEB (13:15)
--- NOTE | 2017-10-10 13:36 | HHI.IDPN ---
Note Infectious Disease Note Patient is awake and very alert. On the vent. CPAP trial in progress. Afebrile. Presented to the emergency department with hypoxia and respiratory distress. The patient has history of multiple sclerosis. She was noted to have cough. She has had multiple recent hospitalizations for pneumonia over the past few months including two at [facility] before this current admission here at [place]. CT scan of the lungs showed diffuse bilateral pulmonary infiltrates. PAST MEDICAL HISTORY 1. Multiple sclerosis. The patient has not been on medication for the past 2 years, per her son's report. 2. Hypertension. 3. Gastroesophageal reflux. 4. Chronic lung disease. 5. Hysterectomy. ALLERGIES LASIX, LATEX. ANTIBIOTICS: 1. Vancomycin. 2. Azithromycin. 3. Piperacillin / tazobactam. OBJECTIVE: Vital Signs Date Time Temp Pulse Resp B/P (MAP) Pulse Ox O2 Delivery O2 Flow Rate FiO2 10/10/17 13:20 97 Nasal Cannula 4.00 10/10/17 13:20 97 Nasal Cannula 4 10/10/17 12:00 98.2 93 36 136/83 (100) 98 10/10/17 10:28 98 35 10/10/17 10:00 76 10/10/17 08:30 35 10/10/17 08:30 99 35 10/10/17 08:00 98.2 85 16 137/75 (95) 98 10/10/17 08:00 85 10/10/17 07:51 95 35 10/10/17 06:00 68 10/10/17 04:25 99 35 10/10/17 04:00 77 10/10/17 04:00 35 10/10/17 04:00 98.6 77 17 120/70 (87) 98 10/10/17 02:00 72 10/10/17 00:15 97 35 10/10/17 00:00 35 10/10/17 00:00 98.3 68 16 137/82 (100) 99 10/10/17 00:00 68 10/09/17 22:00 88 10/09/17 20:14 99 Ventilator 35 10/09/17 20:14 99 35 10/09/17 20:00 35 10/09/17 20:00 98.5 101 37 132/84 (100) 97 10/09/17 20:00 101 10/09/17 18:00 74 10/09/17 16:00 84 10/09/17 16:00 98.4 84 21 118/69 (85) 97 10/09/17 16:00 72 10/09/17 16:00 35 10/09/17 15:53 97 35 10/09/17 14:00 72 Laboratory Tests Test 10/09/17 10:44 10/10/17 04:29 White Blood Count 21.9 TH/MM3 19.9 TH/MM3 Red Blood Count 4.79 MIL/MM3 4.67 MIL/MM3 Hemoglobin 11.5 GM/DL 11.3 GM/DL Hematocrit 36.7 % 35.5 % Mean Corpuscular Volume 76.6 FL 75.9 FL Mean Corpuscular Hemoglobin 24.0 PG 24.2 PG Mean Corpuscular Hemoglobin Concent 31.3 % 31.8 % Red Cell Distribution Width 16.3 % 16.3 % Platelet Count 246 TH/MM3 247 TH/MM3 Mean Platelet Volume 9.9 FL 9.6 FL Neutrophils (%) (Auto) 73.1 % 84.0 % Lymphocytes (%) (Auto) 17.3 % 10.6 % Monocytes (%) (Auto) 8.8 % 4.8 % Eosinophils (%) (Auto) 0.5 % 0.2 % Basophils (%) (Auto) 0.3 % 0.4 % Neutrophils # (Auto) 16.0 TH/MM3 16.7 TH/MM3 Lymphocytes # (Auto) 3.8 TH/MM3 2.1 TH/MM3 Monocytes # (Auto) 1.9 TH/MM3 1.0 TH/MM3 Eosinophils # (Auto) 0.1 TH/MM3 0.0 TH/MM3 Basophils # (Auto) 0.1 TH/MM3 0.1 TH/MM3 CBC Comment AUTO DIFF AUTO DIFF Differential Total Cells Counted 100 100 Neutrophils % (Manual) 69 % 79 % Lymphocytes % 22 % 10 % Monocytes % 4 % 5 % Neutrophils # (Manual) 16.2 TH/MM3 16.9 TH/MM3 Metamyelocytes 1 % 2 % Myelocytes 4 % 2 % Differential Comment FINAL DIFF MANUAL FINAL DIFF MANUAL Platelet Estimate NORMAL NORMAL Platelet Morphology Comment NORMAL NORMAL Red Cell Morphology Comment NORMAL Band Neutrophils % 2 % Basophilic Stippling FAINT Spherocytes OCC Laboratory Tests Test 10/09/17 10:44 10/10/17 04:29 Blood Urea Nitrogen 25 MG/DL 24 MG/DL Creatinine 0.75 MG/DL 0.82 MG/DL Random Glucose 117 MG/DL 204 MG/DL Calcium Level 9.2 MG/DL 9.2 MG/DL Sodium Level 142 MEQ/L 140 MEQ/L Potassium Level 3.7 MEQ/L 4.1 MEQ/L Chloride Level 103 MEQ/L 103 MEQ/L Carbon Dioxide Level 31.3 MEQ/L 30.6 MEQ/L Anion Gap 8 MEQ/L 6 MEQ/L Estimat Glomerular Filtration Rate 99 ML/MIN 89 ML/MIN Total Protein 7.3 GM/DL Albumin 2.8 GM/DL Phosphorus Level 3.1 MG/DL Magnesium Level 2.5 MG/DL Alkaline Phosphatase 67 U/L Aspartate Amino Transf (AST/SGOT) 12 U/L Alanine Aminotransferase (ALT/SGPT) 22 U/L Total Bilirubin 0.4 MG/DL IMAGING: Chest X-Ray 10/10/17 0600 Signed Impressions: Service Date/Time: Tuesday, October 10, 2017 03:28 - CONCLUSION: Patchy density at the bases likely related to mild atelectasis or consolidation. Fernando Ann MD Chest X-Ray 10/08/17 0600 Signed Impressions: Service Date/Time: September 03:51 - CONCLUSION: Persistent stable left lower lobe consolidation Dre Cooper MD Head CT 10/05/17 0000 Signed Impressions: Service Date/Time: Thursday, October 05, 2017 09:32 - CONCLUSION: Negative for acute process. Dajuan Mendez MD FACR Chest X-Ray 10/05/17 0000 Signed Impressions: Service Date/Time: Thursday, October 05, 2017 07:50 - CONCLUSION: 1. Small bilateral effusions with patchy areas of infiltrate. There are air bronchograms seen on the left. Exam is concerning for pneumonia. Syed Mendez MD CT Angiography 09/30/17 1723 Signed Impressions: Service Date/Time: Saturday, September 30, 2017 17:50 - CONCLUSION: 1. Diffuse bilateral pulmonary infiltrates with cylindrical bronchiectasis. 2. No pulmonary embolus. Dre Moseley Jr., MD PHYSICAL EXAMINATION GENERAL: No acute distress. On the ventilator. Responsive. HEENT: No icterus. Oropharynx mucosa moist. NECK: No swelling or adenopathy. LUNGS: Basilar rhonchi. HEART: Regular, S1-S2 without audible murmurs, rubs or gallops. ABDOMEN: Bowel sounds present, soft, no tenderness. EXTREMITIES: No clubbing or cyanosis or edema. SKIN: No rash. NEURO: Non focal. IMPRESSION 1. Pneumonia. Abnormal CXR. Negative cultures. 2. Leukocytosis secondary to infection. Also on steroids which could be contributing. 3. Acute respiratory failure. On the vent. 4. Multiple sclerosis. RECOMMENDATIONS 1. Continue vancomycin. 2. Continue azithromycin. 3. Continue piperacillin/tazobactam. 4. Monitor white blood cell count. 5. Monitor clinical status. 6. Antibiotic taper after extubation. Lorenzo Simpson MD Oct 10, 2017 13:36
[2017-10-10] MEDS: VANCOMYCIN 1,500 MG/NS 500 ML IV SCH ×2 (13:44)
[2017-10-10] MEDS: INSULIN DETEMIR 100 UNITS/ML VIAL SQ SCH ×2 (13:47→21:00)
--- NOTE | 2017-10-10 19:58 | RADRPT ---
EXAM DATE/TIME: 10/10/2017 19:18 [place] COMPARISON: No previous studies available for comparison. INDICATIONS : Right arm pain. MEDICAL HISTORY : Stroke. Hypercholesterolemia. Hypertension. Neck pain. Dizziness. Anticoagulant therapy. Pneumonia. A rthritis. Depression. SURGICAL HISTORY : Hysterectomy. section. G tube placement/removal. ENCOUNTER: Initial ACUITY: 1 day PAIN SCORE: 4/10 LOCATION: Right arm. FINDINGS: Clot is seen in the right cephalic vein beginning at the antecubital fossa and extending to the wrist . Other venous tributaries of the right upper extremity are patent. CONCLUSION: Venous thrombosis of the right cephalic vein from the elbow to the wrist. Fernando Rooney MD on October 10, 2017 at 19:55 Board Certified Radiologist. This report was verified electronically.
[2017-10-10] MEDS: AZITHROMYCIN INJ 500 MG in SODIUM CHLOR 0.9% 250 ML INJ 250 ML IV SCH (20:04)
[2017-10-11] VITALS (15 sets, daily range): BP systolic 112–123; BP diastolic 71–79; PULSE 78–116; RESP 27–43; TEMP 97.3–98.3; O2SAT 94–100
[2017-10-11] MEDS: INSULIN NovoLIN REGULAR SUPPLEMENTAL SCALE SQ SCH ×5 (02:00→17:58)
[2017-10-11] MEDS: CHLORHEXIDINE GLUCONATE 2 % 1 PACK (2 CLOTHS) TOP SCH (03:03)
[2017-10-11] MEDS: HEPARIN SODIUM - SQ 10,000 UNITS/ML VIAL SQ SCH ×3 (03:03→20:13)
[2017-10-11] MEDS: PIPERACIL-TAZO 4.5 GM PREMIX 100 ML IV SCH ×4 (03:03→20:13)
[2017-10-11] MEDS: RESP: ALBUTEROL 2.5 MG/IPRATROPIUM 0.5 MG NEB (SCH) NEB ×5 (03:52→21:01)
[2017-10-11] MEDS ORDERED: PHARMACY ORDERED LAB ONE (04:45)
[2017-10-11 05:52] LABS: AUTOMATED NEUTROPHIL # 16.2 TH/MM3 (1.8-7.7); BASOPHIL # 0.1 TH/MM3 (0-0.2); BASOPHIL % 0.3 % (0.0-2.0); EOSINOPHIL # 0.7 TH/MM3 (0-0.4); EOSINOPHIL % 2.9 % (0.0-4.0); HEMOGLOBIN 12.5 GM/DL (11.6-15.3); LYMPHOCYTE # 5.2 TH/MM3 (1.0-4.8); MEAN CELL VOLUME 76.6 FL (80.0-100.0); MEAN CORPUSCULAR HEMOGLOBIN 23.9 PG (27.0-34.0); MEAN CORPUSCULAR HGB CONC 31.2 % (32.0-36.0); MEAN PLATELET VOLUME 9.9 FL (7.0-11.0); MONO % 6.4 % (0.0-8.0); MONOCYTE # 1.5 TH/MM3 (0-0.9); NEUT % 68.4 % (16.0-70.0); PLATELET COUNT 315 TH/MM3 (150-450); RED BLOOD COUNT 5.22 MIL/MM3 (4.00-5.30); RED CELL DISTRIBUTION WIDTH 16.6 % (11.6-17.2); WHITE BLOOD COUNT 23.7 TH/MM3 (4.0-11.0)
[2017-10-11] MEDS: VANCOMYCIN 1,500 MG/NS 500 ML IV SCH ×2 (05:54)
[2017-10-11] MEDS: ARTIFICIAL TEARS OPTH SOLN 15 ML BTL EACH EYE SCH ×2 (05:54→14:19)
[2017-10-11 06:21] LABS: BICARBONATE 31.7 MEQ/L (21.0-32.0); CALCIUM 9.6 MG/DL (8.5-10.1); CREATININE 0.84 MG/DL (0.50-1.00)
[2017-10-11 06:59] LABS: LYMPHOCYTES 23 % (9-44); MONOCYTES 3 % (0-8); MYELOCYTES 3 % (0-0); NEUTROPHIL # MANUAL DIFF 16.8 TH/MM3 (1.8-7.7); POLYS (SEG NEUTROPHILS) 68 % (16-70)
[2017-10-11] MEDS: methylPREDNISolone SOD SUCC 40 MG/1 ML VIAL IV PUSH SCH (08:18)
[2017-10-11] MEDS: SODIUM CHLORIDE 0.9% FLUSH 10 ML FLUSH IV FLUSH SCH ×2 (08:19→20:13)
[2017-10-11] MEDS: INSULIN DETEMIR 100 UNITS/ML VIAL SQ SCH ×2 (09:00→20:13)
[2017-10-11] MEDS: ASPIRIN 81 MG CHEW TAB PO SCH (09:55)
[2017-10-11] MEDS: BACLOFEN 10 MG TAB PO SCH ×3 (09:55→17:58)
[2017-10-11] MEDS: BUMETANIDE 1 MG TAB PO SCH (09:55)
[2017-10-11] MEDS: DOCUSATE SODIUM 50 MG/SENNA 8.6 MG TAB PO SCH ×2 (10:07→20:13)
[2017-10-11] MEDS: FAMOTIDINE 20 MG TAB NG SCH ×2 (10:07→20:13)
[2017-10-11] MEDS: FERROUS SULFATE 300 MG /5ML UDC OG-TUBE SCH (10:07)
--- NOTE | 2017-10-11 12:40 | HHI.IDPN ---
Note Infectious Disease Note Patient is awake and very alert. feels well. Communicating with family at bedside. Extubated and on nasal O2. Afebrile. Presented to the emergency department with hypoxia and respiratory distress. The patient has history of multiple sclerosis. She was noted to have cough. She has had multiple recent hospitalizations for pneumonia over the past few months including two at [facility] before this current admission here at [place]. CT scan of the lungs showed diffuse bilateral pulmonary infiltrates. PAST MEDICAL HISTORY 1. Multiple sclerosis. The patient has not been on medication for the past 2 years, per her son's report. 2. Hypertension. 3. Gastroesophageal reflux. 4. Chronic lung disease. 5. Hysterectomy. ALLERGIES LASIX, LATEX. ANTIBIOTICS: 1. Vancomycin. 2. Azithromycin. 3. Piperacillin / tazobactam. OBJECTIVE: Vital Signs Date Time Temp Pulse Resp B/P (MAP) Pulse Ox O2 Delivery O2 Flow Rate FiO2 10/11/17 12:00 98.0 112 43 112/74 (87) 94 10/11/17 12:00 112 10/11/17 10:00 93 10/11/17 08:00 97.8 101 43 121/71 (88) 98 10/11/17 08:00 104 10/11/17 07:50 100 Nasal Cannula 2.00 10/11/17 06:00 89 10/11/17 04:00 98.3 80 42 117/74 (88) 100 10/11/17 04:00 80 10/11/17 02:00 82 10/11/17 00:03 98 40 10/11/17 00:00 98.2 78 27 123/76 (92) 100 10/11/17 00:00 78 10/10/17 22:00 83 10/10/17 20:22 95 Nasal Cannula 2.00 10/10/17 20:00 97.6 83 43 126/82 (97) 97 10/10/17 20:00 83 10/10/17 18:00 84 10/10/17 16:00 79 10/10/17 16:00 97.3 79 39 127/79 (95) 97 10/10/17 14:00 79 10/10/17 13:20 97 Nasal Cannula 4.00 10/10/17 13:20 97 Nasal Cannula 4 Laboratory Tests Test 10/10/17 04:29 10/11/17 05:11 White Blood Count 19.9 TH/MM3 23.7 TH/MM3 Red Blood Count 4.67 MIL/MM3 5.22 MIL/MM3 Hemoglobin 11.3 GM/DL 12.5 GM/DL Hematocrit 35.5 % 40.0 % Mean Corpuscular Volume 75.9 FL 76.6 FL Mean Corpuscular Hemoglobin 24.2 PG 23.9 PG Mean Corpuscular Hemoglobin Concent 31.8 % 31.2 % Red Cell Distribution Width 16.3 % 16.6 % Platelet Count 247 TH/MM3 315 TH/MM3 Mean Platelet Volume 9.6 FL 9.9 FL Neutrophils (%) (Auto) 84.0 % 68.4 % Lymphocytes (%) (Auto) 10.6 % 22.0 % Monocytes (%) (Auto) 4.8 % 6.4 % Eosinophils (%) (Auto) 0.2 % 2.9 % Basophils (%) (Auto) 0.4 % 0.3 % Neutrophils # (Auto) 16.7 TH/MM3 16.2 TH/MM3 Lymphocytes # (Auto) 2.1 TH/MM3 5.2 TH/MM3 Monocytes # (Auto) 1.0 TH/MM3 1.5 TH/MM3 Eosinophils # (Auto) 0.0 TH/MM3 0.7 TH/MM3 Basophils # (Auto) 0.1 TH/MM3 0.1 TH/MM3 CBC Comment AUTO DIFF AUTO DIFF Differential Total Cells Counted 100 100 Neutrophils % (Manual) 79 % 68 % Band Neutrophils % 2 % Lymphocytes % 10 % 23 % Monocytes % 5 % 3 % Neutrophils # (Manual) 16.9 TH/MM3 16.8 TH/MM3 Metamyelocytes 2 % Myelocytes 2 % 3 % Differential Comment FINAL DIFF MANUAL FINAL DIFF MANUAL Platelet Estimate NORMAL NORMAL Platelet Morphology Comment NORMAL NORMAL Basophilic Stippling FAINT Spherocytes OCC Eosinophils % 3 % Laboratory Tests Test 10/10/17 04:29 10/11/17 05:11 Blood Urea Nitrogen 24 MG/DL 20 MG/DL Creatinine 0.82 MG/DL 0.84 MG/DL Random Glucose 204 MG/DL 98 MG/DL Total Protein 7.3 GM/DL Albumin 2.8 GM/DL Calcium Level 9.2 MG/DL 9.6 MG/DL Phosphorus Level 3.1 MG/DL Magnesium Level 2.5 MG/DL Alkaline Phosphatase 67 U/L Aspartate Amino Transf (AST/SGOT) 12 U/L Alanine Aminotransferase (ALT/SGPT) 22 U/L Total Bilirubin 0.4 MG/DL Sodium Level 140 MEQ/L 144 MEQ/L Potassium Level 4.1 MEQ/L 3.3 MEQ/L Chloride Level 103 MEQ/L 105 MEQ/L Carbon Dioxide Level 30.6 MEQ/L 31.7 MEQ/L Anion Gap 6 MEQ/L 7 MEQ/L Estimat Glomerular Filtration Rate 89 ML/MIN 86 ML/MIN IMAGING: Chest X-Ray 10/10/17 0600 Signed Impressions: Service Date/Time: Tuesday, October 10, 2017 03:28 - CONCLUSION: Patchy density at the bases likely related to mild atelectasis or consolidation. Fernando Ann MD Upper Extremity Ultrasound 10/10/17 0000 Signed Impressions: Service Date/Time: Tuesday, October 10, 2017 19:18 - CONCLUSION: Venous thrombosis of the right cephalic vein from the elbow to the wrist. Fernando Rooney MD Chest X-Ray 10/10/17 0600 Signed Impressions: Service Date/Time: Tuesday, October 10, 2017 03:28 - CONCLUSION: Patchy density at the bases likely related to mild atelectasis or consolidation. Fernando Ann MD Head CT 10/05/17 0000 Signed Impressions: Service Date/Time: Thursday, October 05, 2017 09:32 - CONCLUSION: Negative for acute process. Dajuan Mendez MD FACR Chest X-Ray 10/05/17 0000 Signed Impressions: Service Date/Time: Thursday, October 05, 2017 07:50 - CONCLUSION: 1. Small bilateral effusions with patchy areas of infiltrate. There are air bronchograms seen on the left. Exam is concerning for pneumonia. Syed Mendez MD CT Angiography 09/30/17 3913 Signed Impressions: Service Date/Time: Saturday, September 30, 2017 17:50 - CONCLUSION: 1. Diffuse bilateral pulmonary infiltrates with cylindrical bronchiectasis. 2. No pulmonary embolus. Dre Moseley Jr., MD PHYSICAL EXAMINATION GENERAL: No acute distress. Responsive. HEENT: No icterus. Oropharynx mucosa moist. NECK: No swelling or adenopathy. LUNGS: Decreased breath sounds. HEART: Regular, S1-S2 without audible murmurs, rubs or gallops. ABDOMEN: Bowel sounds present, soft, non tender. EXTREMITIES: No clubbing or cyanosis or edema. SKIN: No rash. NEURO: Non focal. IMPRESSION 1. Pneumonia. Abnormal CXR. Negative cultures. 2. Leukocytosis secondary to infection. Also on steroids which could be contributing. 3. Acute respiratory failure. On the vent. 4. Multiple sclerosis. RECOMMENDATIONS 1. Stop vancomycin. 2. Continue azithromycin change to PO. 3. Continue piperacillin/tazobactam. 4. Monitor white blood cell count. 5. Monitor clinical status. Lorenzo Simpson MD Oct 11, 2017 12:40
[2017-10-11] MEDS ORDERED: VANCOMYCIN 1,500 MG/NS 500 ML IV SCH ×2 (15:00)
[2017-10-11] MEDS ORDERED: POTASSIUM CHLORIDE 20 MEQ CONTROLLED RELEASE TAB PO ONE (22:00)
--- NOTE | 2017-10-11 22:06 | HHI.CCPN ---
Subjective Remarks/Hospital Course 52-year-old unfortunate female patient with history of MS, previous stroke, chronic lung disease, presents to the ER today because she has had worsening dyspnea on exertion end shortness of breath with getting up from bed. She has also been coughing. She states that similar symptoms have happened before and she has been like this since October last year. She states that she has had "fluid in the lungs". She denies any chest pains, fevers, or other symptoms. She is very poor historian. 10/01 Patient was on non rebreather however she was hypoxic, tachycardic, tachypneic and using her accessory muscle for respiration she was subsequently intubated and placed on mechanical ventilation. 10/02 Patient is sedated and intubated. Afebrile. 10/03 No events overnight. Sedated with Versed and Diprivan drips. Afebrile. Tolerating tube feeds. 10/04 Patient remains intubated and sedated with Diprivan. Off Versed. Afebrile 10/05 Patient remains sedated and intubated. Had Liquid stool overnight. 10/06 No events overnight. Off sedation awake and follows commands. Afebrile. 10/07: Afebrile. Complaining of pain in her left upper extremity resolved. Tolerating tube feeding. Appears very complex status post given bumetadine1 mg IV 1 today 10/08: Afebrile. Tolerating tube feeding. Less than one hour on PSV trial today on Dexmedetomidine 10/09 Patient remains intubated on no sedation. Awake and alert. 10/10 No events overnight. Remains intubated on no sedation. Awake and alert. Afebrile. Subjective 10/11: Resting in bed in no acute distress. Extubated yesterday without complication. Currently in 4 L nasal cannula. Passed swallow evaluation. Objective Vital Signs Date Time Temp Pulse Resp B/P (MAP) Pulse Ox O2 Delivery O2 Flow Rate FiO2 10/11/17 21:06 99 2.00 10/11/17 18:00 100 10/11/17 16:00 97.3 33 122/79 (93) 10/11/17 07:50 Nasal Cannula 10/11/17 00:03 40 Intake and Output 10/11/17 10/11/17 10/12/17 08:00 16:00 00:00 Intake Total 600 ml 400 ml Output Total 450 ml 1400 ml Balance -450 ml 600 ml -1000 ml Result Diagram: 10/11/17 0511 10/11/17 0511 Other Results Microbiology Date/Time Source Procedure Growth Status 09/30/17 20:20 Blood Other Aerobic Blood Culture - Final NO GROWTH IN 5 DAYS Complete 09/30/17 20:20 Blood Other Anaerobic Blood Culture - Final NO GROWTH IN 5 DAYS Complete 10/05/17 11:40 Sputum Endotracheal Gram Stain - Final Complete 10/05/17 11:40 Sputum Endotracheal Sputum Culture - Final LIGHT GROWTH NORMAL RESPIRATORY STEPHON Complete 10/03/17 10:45 Urine Catheterized Urine Streptococcus pneumoniae Antigen (M - Final PRESUMPTIVE NEGATIVE FOR STREPTOCOCCU... Complete Imaging Last Impressions Chest X-Ray 10/10/17 0600 Signed Impressions: Service Date/Time: Tuesday, October 10, 2017 03:28 - CONCLUSION: Patchy density at the bases likely related to mild atelectasis or consolidation. Fernando Ann MD Upper Extremity Ultrasound 10/10/17 0000 Signed Impressions: Service Date/Time: Tuesday, October 10, 2017 19:18 - CONCLUSION: Venous thrombosis of the right cephalic vein from the elbow to the wrist. Fernando Rooney MD Head CT 10/05/17 0000 Signed Impressions: Service Date/Time: Thursday, October 05, 2017 09:32 - CONCLUSION: Negative for acute process. Dajuan Mendez MD FACR CT Angiography 09/30/17 1723 Signed Impressions: Service Date/Time: Saturday, September 30, 2017 17:50 - CONCLUSION: 1. Diffuse bilateral pulmonary infiltrates with cylindrical bronchiectasis. 2. No pulmonary embolus. Dre Moseley Jr., MD Objective Remarks GENERAL: This is a 52-year-old female patient really resting in bed on nasal cannula in no acute distress SKIN: Focused skin assessment warm/dry. HEAD: Atraumatic. Normocephalic. EYES: Pupils equal and round. No scleral icterus. No injection or drainage. ENT: No nasal bleeding or discharge. Mucous membranes pink and moist. NECK: Trachea midline. No JVD. CARDIOVASCULAR: Tachycardic. S1, S2. No S4. No murmur appreciated. RESPIRATORY: Few crackles appreciated in the bases bilaterally. No wheezing GASTROINTESTINAL: Abdomen soft, non-tender, nondistended. Hypoactive bowel sounds appreciated MUSCULOSKELETAL: No obvious deformities. No skin peripheral edema. Neuro: Radial nerves II through XII are grossly intact. Strength is equal symmetric. Normal sensation. Follows commands A/P Assessment and Plan Neuro: MS History of posterior pontine hemorrhagic CVA 2012 History of migraine headaches History of lupus cerebritis? Off sedation. Monitor neuro status. Awake and alert CT brain: No acute process EEG - no epileptiform activity Neurology has followed Dr. Kasey Parker for fever. Morphine for pain And baclofen 10 mg 3 times a day Pulm: Acute respiratory failure Interstitial lung disease Nasal cannula to maintain saturations greater than equal to 92% Incentive spirometry while awake Albuterol/ipratropium aerosols every 4 hours while awake and albuterol aerosols every 2 hours. Dyspnea, ICU vent bundle. Methylprednisolone succinate 40mg Q12 Decreased methylprednisolone succinate 40mg daily CV: Monitor HR and BP keep MAP>65mmHg Echo showed the left ventricular systolic function is normal with EF 60-65%. Normal left ventricular size. Wall thickness is normal. No regional wall motion abnormalities are present. There is mild tricuspid valve regurgitation. The estimated pulmonary arterial pressure is 52.8 mmHg. Trivial pulmonary valve regurgitation. Continue aspirin 81 mg daily /FEN: Monitor renal function, I/O's, electrolytes replacement per protocol. On Bumetanide 1mg daily GI: Hypoalbuminemia Gastroesophageal reflux disease On famotidine milligrams twice a day for GI prophylaxis. Currently on regular diet per speech therapy ID: Continue with abx (piperacillin/tazobactam, Azithromycin) monitor for signs of infections ( Fever, WBC) strep pneumonia, Legionella urinary Ag, Influenza screening all negative. BC 09/30: NGTD, sputum cx: normal resp stephon ID is following Heme: Leukocytosis Microcytosis Monitor CBC Endo: Hyperglycemia SSI Novulin R with Accu-Cheks every before meals/at bedtime hours at moderate regimen for glycemic control, Insulin detemir 5uQ12. GI prophylaxis- on famotidine DVT prophylaxis- SCD, Heparin SQ. Level II follow-up Zeus Greene MD Oct 11, 2017 22:06
[2017-10-12] VITALS (14 sets, daily range): BP systolic 10–146; BP diastolic 68–95; PULSE 75–105; RESP 26–48; TEMP 97.7–98.3; O2SAT 95–100
[2017-10-12] MEDS: PIPERACIL-TAZO 4.5 GM PREMIX 100 ML IV SCH ×4 (03:00→20:15)
[2017-10-12] MEDS: HEPARIN SODIUM - SQ 10,000 UNITS/ML VIAL SQ SCH ×3 (04:00→20:15)
[2017-10-12] MEDS: CHLORHEXIDINE GLUCONATE 2 % 1 PACK (2 CLOTHS) TOP SCH (04:00)
--- NOTE | 2017-10-12 04:49 | RADRPT ---
EXAM DATE/TIME: 10/12/2017 03:11 [facility] COMPARISON: CHEST SINGLE AP, October 10, 2017, 3:28. INDICATIONS : Shortness of breath, possible pulmonary disease. MEDICAL HISTORY : Hypertension. Cardiovascular disease. SURGICAL HISTORY : None. ENCOUNTER: Subsequent ACUITY: 1 week PAIN SCORE: Non-responsive. LOCATION: Bilateral chest FINDINGS: Endotracheal tube and nasogastric tube have been removed. Patchy bilateral airspace disease. No effus ion. No pneumothorax. Heart size enlarged. CONCLUSION: 1. Subsegmental airspace disease in the lungs. No significant effusion. No pneumothorax. Siddharth Garibay MD on October 12, 2017 at 4:43 Board Certified Radiologist. This report was verified electronically.
[2017-10-12 06:03] LABS: AUTOMATED NEUTROPHIL # 16.8 TH/MM3 (1.8-7.7); BASOPHIL # 0.1 TH/MM3 (0-0.2); BASOPHIL % 0.4 % (0.0-2.0); EOSINOPHIL # 0.5 TH/MM3 (0-0.4); EOSINOPHIL % 1.9 % (0.0-4.0); HEMATOCRIT 38.6 % (35.0-46.0); HEMOGLOBIN 12.2 GM/DL (11.6-15.3); LYMPH % 19.5 % (9.0-44.0); LYMPHOCYTE # 4.6 TH/MM3 (1.0-4.8); MEAN CELL VOLUME 77.6 FL (80.0-100.0); MEAN CORPUSCULAR HEMOGLOBIN 24.5 PG (27.0-34.0); MEAN CORPUSCULAR HGB CONC 31.6 % (32.0-36.0); MEAN PLATELET VOLUME 9.4 FL (7.0-11.0); MONO % 6.7 % (0.0-8.0); MONOCYTE # 1.6 TH/MM3 (0-0.9); NEUT % 71.5 % (16.0-70.0); PLATELET COUNT 261 TH/MM3 (150-450); RED BLOOD COUNT 4.97 MIL/MM3 (4.00-5.30); RED CELL DISTRIBUTION WIDTH 16.8 % (11.6-17.2); WHITE BLOOD COUNT 23.5 TH/MM3 (4.0-11.0)
[2017-10-12 06:26] LABS: ALBUMIN 2.9 GM/DL (3.4-5.0); AST (GOT) 23 U/L (15-37); BICARBONATE 32.6 MEQ/L (21.0-32.0); BLOOD UREA NITROGEN 16 MG/DL (7-18); CALCIUM 10.3 MG/DL (8.5-10.1); CHLORIDE 108 MEQ/L (98-107); CREATININE 0.68 MG/DL (0.50-1.00); GLOMERULAR FILTRATION RATE 110 ML/MIN (>89); GLUCOSE,RANDOM 95 MG/DL (74-106); MAGNESIUM 2.4 MG/DL (1.5-2.5); SODIUM (NA) 146 MEQ/L (136-145)
[2017-10-12 06:32] LABS: ALKALINE PHOSPHATASE 83 U/L (45-117); ALT (GPT) 55 U/L (10-53); PHOSPHORUS 2.9 MG/DL (2.5-4.9); TOTAL BILIRUBIN ADULT 0.3 MG/DL (0.2-1.0); TOTAL PROTEIN 7.5 GM/DL (6.4-8.2); VANCOMYCIN TROUGH 7.6 MCG/ML (5.0-10.0)
[2017-10-12] MEDS: INSULIN NovoLIN REGULAR SUPPLEMENTAL SCALE SQ SCH ×4 (08:00→20:15)
[2017-10-12] MEDS: RESP: ALBUTEROL 2.5 MG/IPRATROPIUM 0.5 MG NEB (SCH) NEB ×4 (08:39→20:13)
[2017-10-12] MEDS: INSULIN DETEMIR 100 UNITS/ML VIAL SQ SCH ×2 (09:00→20:16)
[2017-10-12] MEDS: FERROUS SULFATE 325 MG (65 MG ELEMENTAL IRON) TAB PO SCH (09:10)
[2017-10-12] MEDS: methylPREDNISolone SOD SUCC 40 MG/1 ML VIAL IV PUSH SCH (09:10)
[2017-10-12] MEDS: BACLOFEN 10 MG TAB PO SCH ×3 (09:10→16:46)
[2017-10-12] MEDS: FAMOTIDINE 20 MG TAB PO SCH ×2 (09:10→20:15)
[2017-10-12] MEDS: AZITHROMYCIN 250 MG TAB PO SCH (09:10)
[2017-10-12] MEDS: BUMETANIDE 1 MG TAB PO SCH (09:11)
[2017-10-12] MEDS: DOCUSATE SODIUM 50 MG/SENNA 8.6 MG TAB PO SCH ×2 (09:11→20:16)
[2017-10-12] MEDS: SODIUM CHLORIDE 0.9% FLUSH 10 ML FLUSH IV FLUSH SCH ×2 (09:11→20:16)
[2017-10-12] MEDS: ASPIRIN 81 MG CHEW TAB PO SCH (09:11)
[2017-10-12] MEDS ORDERED: INSULIN NovoLIN REGULAR SUPPLEMENTAL SCALE SQ SCH (11:00)
--- NOTE | 2017-10-12 14:28 | HHI.CCPN ---
Subjective Remarks/Hospital Course 52-year-old unfortunate female patient with history of MS, previous stroke, chronic lung disease, presents to the ER today because she has had worsening dyspnea on exertion end shortness of breath with getting up from bed. She has also been coughing. She states that similar symptoms have happened before and she has been like this since October last year. She states that she has had "fluid in the lungs". She denies any chest pains, fevers, or other symptoms. She is very poor historian. 10/01 Patient was on non rebreather however she was hypoxic, tachycardic, tachypneic and using her accessory muscle for respiration she was subsequently intubated and placed on mechanical ventilation. 10/02 Patient is sedated and intubated. Afebrile. 10/03 No events overnight. Sedated with Versed and Diprivan drips. Afebrile. Tolerating tube feeds. 10/04 Patient remains intubated and sedated with Diprivan. Off Versed. Afebrile 10/05 Patient remains sedated and intubated. Had Liquid stool overnight. 10/06 No events overnight. Off sedation awake and follows commands. Afebrile. 10/07: Afebrile. Complaining of pain in her left upper extremity resolved. Tolerating tube feeding. Appears very complex status post given bumetadine1 mg IV 1 today 10/08: Afebrile. Tolerating tube feeding. Less than one hour on PSV trial today on Dexmedetomidine 10/09 Patient remains intubated on no sedation. Awake and alert. 10/10 No events overnight. Remains intubated on no sedation. Awake and alert. Afebrile. 10/11: Resting in bed in no acute distress. Extubated yesterday without complication. Currently in 4 L nasal cannula. Passed swallow evaluation. Subjective 10/12: Afebrile. Currently on nasal cannula 3 L saturations 99 %. Having peripheral IVs placed currently. Tolerating diet. Refusing certain medications Objective Vital Signs Date Time Temp Pulse Resp B/P (MAP) Pulse Ox O2 Delivery O2 Flow Rate FiO2 10/12/17 10:00 100 10/12/17 08:40 99 Nasal Cannula 3.00 10/12/17 08:00 97.9 33 (49) 1/28/18 00:03 40 Intake and Output 10/12/17 10/12/17 10/13/17 08:00 16:00 00:00 Intake Total 300 ml 100 ml Output Total 400 ml Balance -100 ml 100 ml Result Diagram: 10/12/17 0459 10/12/17 0459 Other Results Microbiology Date/Time Source Procedure Growth Status 09/30/17 20:20 Blood Other Aerobic Blood Culture - Final NO GROWTH IN 5 DAYS Complete 09/30/17 20:20 Blood Other Anaerobic Blood Culture - Final NO GROWTH IN 5 DAYS Complete 10/05/17 11:40 Sputum Endotracheal Gram Stain - Final Complete 10/05/17 11:40 Sputum Endotracheal Sputum Culture - Final LIGHT GROWTH NORMAL RESPIRATORY STEPHON Complete 10/03/17 10:45 Urine Catheterized Urine Streptococcus pneumoniae Antigen (M - Final PRESUMPTIVE NEGATIVE FOR STREPTOCOCCU... Complete Imaging Last Impressions Chest X-Ray 10/12/17 0600 Signed Impressions: Service Date/Time: Thursday, October 12, 2017 03:11 - CONCLUSION: 1. Subsegmental airspace disease in the lungs. No significant effusion. No pneumothorax. Siddharth Garibay MD Upper Extremity Ultrasound 10/10/17 0000 Signed Impressions: Service Date/Time: Tuesday, October 10, 2017 19:18 - CONCLUSION: Venous thrombosis of the right cephalic vein from the elbow to the wrist. Fernando Rooney MD Head CT 10/05/17 0000 Signed Impressions: Service Date/Time: Thursday, October 05, 2017 09:32 - CONCLUSION: Negative for acute process. Dajuan Mendez MD FACR CT Angiography 09/30/17 1723 Signed Impressions: Service Date/Time: Saturday, September 30, 2017 17:50 - CONCLUSION: 1. Diffuse bilateral pulmonary infiltrates with cylindrical bronchiectasis. 2. No pulmonary embolus. Dre Moseley Jr., MD Objective Remarks GENERAL: This is a 52-year-old female patient really resting in bed on nasal cannula in no acute distress SKIN: Focused skin assessment warm/dry. HEAD: Atraumatic. Normocephalic. EYES: Pupils equal and round. No scleral icterus. No injection or drainage. ENT: No nasal bleeding or discharge. Mucous membranes pink and moist. NECK: Trachea midline. No JVD. CARDIOVASCULAR: Tachycardic. S1, S2. No S4. No murmur appreciated. RESPIRATORY: Few crackles appreciated in the bases bilaterally. No wheezing GASTROINTESTINAL: Abdomen soft, non-tender, nondistended. Hypoactive bowel sounds appreciated MUSCULOSKELETAL: No obvious deformities. No skin peripheral edema. Neuro: Cranial nerves II through XII are grossly intact. Strength is equal symmetric. Normal sensation. Follows commands A/P Assessment and Plan Neuro: MS History of posterior pontine hemorrhagic CVA 2012 History of migraine headaches History of lupus cerebritis? Off sedation. Monitor neuro status. Awake and alert CT brain: No acute process EEG - no epileptiform activity Neurology has followed Dr. Parks Acetaminophen for fever. Morphine for pain Continue baclofen 10 mg 3 times a day Pulm: Acute respiratory failure Interstitial lung disease Nasal cannula to maintain saturations greater than equal to 92% Incentive spirometry while awake Albuterol/ipratropium aerosols every 4 hours while awake and albuterol aerosols every 2 hours. Dyspnea, ICU vent bundle. Methylprednisolone succinate 40mg Q12 Decreased methylprednisolone succinate 40mg daily CV: Monitor HR and BP keep MAP>65mmHg Echo showed the left ventricular systolic function is normal with EF 60-65%. Normal left ventricular size. Wall thickness is normal. No regional wall motion abnormalities are present. There is mild tricuspid valve regurgitation. The estimated pulmonary arterial pressure is 52.8 mmHg. Trivial pulmonary valve regurgitation. Continue aspirin 81 mg daily /FEN: Monitor renal function, I/O's, electrolytes replacement per protocol. On Bumetanide 1mg daily GI: Hypoalbuminemia Gastroesophageal reflux disease On famotidine 20 milligrams twice a day for GI prophylaxis. Currently on regular diet per speech therapy ID: Continue with abx (piperacillin/tazobactam, Azithromycin) monitor for signs of infections ( Fever, WBC) strep pneumonia, Legionella urinary Ag, Influenza screening all negative. BC 09/30: NGTD, sputum cx: normal resp stephon ID is following Heme: Microcytosis Leukocytosis Monitor CBC Endo: Hyperglycemia SSI Novulin R with Accu-Cheks every before meals/at bedtime hours at moderate regimen for glycemic control, Insulin detemir 5uQ12. GI prophylaxis- on famotidine DVT prophylaxis- SCD, Heparin SQ. Level II follow-up Zeus Greene MD Oct 12, 2017 14:28
[2017-10-12] MEDS ORDERED: PHARMACY ORDERED LAB ONE (14:45)
--- NOTE | 2017-10-12 15:13 | HHI.IDPN ---
Note Infectious Disease Note Patient is awake and very alert. feels well. On nasal O2, 3L. Afebrile. Denies SOB. Presented to the emergency department with hypoxia and respiratory distress. The patient has history of multiple sclerosis. She was noted to have cough. She has had multiple recent hospitalizations for pneumonia over the past few months including two at [facility] before this current admission here at [facility]. CT scan of the lungs showed diffuse bilateral pulmonary infiltrates. PAST MEDICAL HISTORY 1. Multiple sclerosis. The patient has not been on medication for the past 2 years, per her son's report. 2. Hypertension. 3. Gastroesophageal reflux. 4. Chronic lung disease. 5. Hysterectomy. ALLERGIES LASIX, LATEX. ANTIBIOTICS: 1. Vancomycin. 2. Azithromycin. 3. Piperacillin / tazobactam. OBJECTIVE: Vital Signs Date Time Temp Pulse Resp B/P (MAP) Pulse Ox O2 Delivery O2 Flow Rate FiO2 10/12/17 10:00 100 10/12/17 08:40 99 Nasal Cannula 3.00 10/12/17 08:00 97.9 93 33 10/68 (49) 98 10/12/17 08:00 93 10/12/17 06:00 81 10/12/17 04:00 97.7 94 28 116/68 (84) 100 10/12/17 04:00 94 10/12/17 02:00 75 10/12/17 00:00 98.0 93 26 122/76 (91) 100 10/12/17 00:00 93 10/11/17 22:00 85 10/11/17 21:06 99 2.00 10/11/17 20:00 91 10/11/17 20:00 97.7 91 28 119/79 (92) 99 10/11/17 18:00 100 10/11/17 16:00 97.3 115 33 122/79 (93) 97 10/11/17 16:00 115 Laboratory Tests Test 10/11/17 05:11 10/12/17 04:59 White Blood Count 23.7 TH/MM3 23.5 TH/MM3 Red Blood Count 5.22 MIL/MM3 4.97 MIL/MM3 Hemoglobin 12.5 GM/DL 12.2 GM/DL Hematocrit 40.0 % 38.6 % Mean Corpuscular Volume 76.6 FL 77.6 FL Mean Corpuscular Hemoglobin 23.9 PG 24.5 PG Mean Corpuscular Hemoglobin Concent 31.2 % 31.6 % Red Cell Distribution Width 16.6 % 16.8 % Platelet Count 315 TH/MM3 261 TH/MM3 Mean Platelet Volume 9.9 FL 9.4 FL Neutrophils (%) (Auto) 68.4 % 71.5 % Lymphocytes (%) (Auto) 22.0 % 19.5 % Monocytes (%) (Auto) 6.4 % 6.7 % Eosinophils (%) (Auto) 2.9 % 1.9 % Basophils (%) (Auto) 0.3 % 0.4 % Neutrophils # (Auto) 16.2 TH/MM3 16.8 TH/MM3 Lymphocytes # (Auto) 5.2 TH/MM3 4.6 TH/MM3 Monocytes # (Auto) 1.5 TH/MM3 1.6 TH/MM3 Eosinophils # (Auto) 0.7 TH/MM3 0.5 TH/MM3 Basophils # (Auto) 0.1 TH/MM3 0.1 TH/MM3 CBC Comment AUTO DIFF DIFF FINAL Differential Total Cells Counted 100 Neutrophils % (Manual) 68 % Lymphocytes % 23 % Monocytes % 3 % Eosinophils % 3 % Neutrophils # (Manual) 16.8 TH/MM3 Myelocytes 3 % Differential Comment FINAL DIFF MANUAL Platelet Estimate NORMAL Platelet Morphology Comment NORMAL Laboratory Tests Test 10/11/17 05:11 10/12/17 04:59 Blood Urea Nitrogen 20 MG/DL 16 MG/DL Creatinine 0.84 MG/DL 0.68 MG/DL Random Glucose 98 MG/DL 95 MG/DL Calcium Level 9.6 MG/DL 10.3 MG/DL Sodium Level 144 MEQ/L 146 MEQ/L Potassium Level 3.3 MEQ/L 3.8 MEQ/L Chloride Level 105 MEQ/L 108 MEQ/L Carbon Dioxide Level 31.7 MEQ/L 32.6 MEQ/L Anion Gap 7 MEQ/L 5 MEQ/L Estimat Glomerular Filtration Rate 86 ML/MIN 110 ML/MIN Total Protein 7.5 GM/DL Albumin 2.9 GM/DL Phosphorus Level 2.9 MG/DL Magnesium Level 2.4 MG/DL Alkaline Phosphatase 83 U/L Aspartate Amino Transf (AST/SGOT) 23 U/L Alanine Aminotransferase (ALT/SGPT) 55 U/L Total Bilirubin 0.3 MG/DL IMAGING: Chest X-Ray 10/12/17 0600 Signed Impressions: Service Date/Time: Thursday, October 12, 2017 03:11 - CONCLUSION: 1. Subsegmental airspace disease in the lungs. No significant effusion. No pneumothorax. Siddharth Garibay MD Chest X-Ray 10/10/17 0600 Signed Impressions: Service Date/Time: Tuesday, October 10, 2017 03:28 - CONCLUSION: Patchy density at the bases likely related to mild atelectasis or consolidation. Fernando Ann MD Upper Extremity Ultrasound 10/10/17 0000 Signed Impressions: Service Date/Time: Tuesday, October 10, 2017 19:18 - CONCLUSION: Venous thrombosis of the right cephalic vein from the elbow to the wrist. Fernando Rooney MD Head CT 10/05/17 0000 Signed Impressions: Service Date/Time: Thursday, October 05, 2017 09:32 - CONCLUSION: Negative for acute process. Dajuan Mendez MD FACR Chest X-Ray 10/05/17 0000 Signed Impressions: Service Date/Time: Thursday, October 05, 2017 07:50 - CONCLUSION: 1. Small bilateral effusions with patchy areas of infiltrate. There are air bronchograms seen on the left. Exam is concerning for pneumonia. Syed Mendez MD CT Angiography 09/30/17 1723 Signed Impressions: Service Date/Time: Saturday, September 30, 2017 17:50 - CONCLUSION: 1. Diffuse bilateral pulmonary infiltrates with cylindrical bronchiectasis. 2. No pulmonary embolus. Dre Moseley Jr., MD PHYSICAL EXAMINATION GENERAL: No acute distress. HEENT: No icterus. Oropharynx mucosa moist. NECK: No swelling or adenopathy. LUNGS: Decreased breath sounds. slight rhonchi. HEART: Regular, S1-S2 without audible murmurs, rubs or gallops. ABDOMEN: Bowel sounds present, soft, non tender. EXTREMITIES: No clubbing or cyanosis or edema. SKIN: No rash. NEURO: Non focal. IMPRESSION 1. Pneumonia. Abnormal CXR. Negative cultures. 2. Leukocytosis secondary to infection. Also on steroids which could be contributing. WBC still elevated. 3. Acute respiratory failure. On the vent. 4. Multiple sclerosis. RECOMMENDATIONS 1. Continue azithromycin PO. 2. Stop piperacillin/tazobactam and continue to monitor the WBC. 3. Monitor clinical status. Lorenzo Simpson MD Oct 12, 2017 15:13
--- NOTE | 2017-10-12 19:23 | HHI.PR ---
Subjective Remarks Awake extubated and in No distress. On O2 3L N/C CXR with Bilateral infiltrates. Able to eat a soft diet. Objective Vital Signs Date Time Temp Pulse Resp B/P (MAP) Pulse Ox O2 Delivery O2 Flow Rate FiO2 10/12/17 18:00 105 10/12/17 16:00 100 10/12/17 16:00 98.1 103 37 123/72 (89) 95 10/12/17 14:00 100 10/12/17 12:00 98.3 100 48 114/87 (96) 96 10/12/17 12:00 100 10/12/17 10:00 100 10/12/17 08:40 99 Nasal Cannula 3.00 10/12/17 08:00 97.9 93 33 146/95 (112) 98 10/12/17 08:00 93 10/12/17 06:00 81 10/12/17 04:00 97.7 94 28 116/68 (84) 100 10/12/17 04:00 94 10/12/17 02:00 75 10/12/17 00:00 98.0 93 26 122/76 (91) 100 10/12/17 00:00 93 10/11/17 22:00 85 10/11/17 21:06 99 2.00 10/11/17 20:00 91 10/11/17 20:00 97.7 91 28 119/79 (92) 99 I/O 10/11/17 10/11/17 10/11/17 10/12/17 10/12/17 10/12/17 07:00 15:00 23:00 07:00 15:00 23:00 Intake Total 600 ml 500 ml 300 ml 100 ml 920 ml Output Total 450 ml 1400 ml 400 ml 1500 ml Balance -450 ml 600 ml -900 ml -100 ml 100 ml -580 ml Intake Oral 300 ml 300 ml 820 ml IV Total 600 ml 200 ml 100 ml 100 ml Output Urine Total 450 ml 1400 ml 400 ml 1000 ml Stool Total 500 ml # Voids 1 2 # Bowel Movements 1 1 Result Diagram: 10/12/1745810/12/17458 Objective Remarks This moderately overweight middle-aged -[place] lady alert . HEENT: Head normocephalic. Pupils are reactive. Sclerae are clear. Throat clear Neck: Supple. No bruits or thyroid enlargement, no lymphadenopathy. Chest: Distant breath sounds with occ wheezes bilaterally and occasional crackles at bases . Heart: Heart sounds are regular, S1-S2 with no murmur. No S3. Abdomen: Soft, obese without masses, no organomegaly or tenderness. Bowel sounds are active. Extremities: No edema. No calf tenderness. Reflexes are 1+. The patient is awake and moving all extremities. Cooperative. Skin: No lesions are observed. Assessment and Plan Assessment and Plan IMPRESSION: 1. Bilateral pneumonia. 2. Interstitial lung disease, chronic with reactive airway. 3. Acute respiratory failure. 4. History of multiple sclerosis. 5. Pulmonary Edema Plan : 1. Wean O2 to 2L 2. Cont Antibiotics as ordered 3. Duonebs qid.PRN 4. Soft diet. 5. BMP CBC in am. 6. D/C Solumedrol 7. Add Prednisone 20 mg bid 8. PT Evaluation 9. Transfer to [facility] Mart Prescott MD Oct 12, 2017 19:23
[2017-10-12] MEDS: predniSONE 20 MG TAB PO SCH (20:14)
[2017-10-13] VITALS (9 sets, daily range): BP systolic 126–135; BP diastolic 69–94; PULSE 72–97; RESP 28–32; TEMP 98–99.2; O2SAT 97–100
[2017-10-13] MEDS: CHLORHEXIDINE GLUCONATE 2 % 1 PACK (2 CLOTHS) TOP SCH (04:00)
[2017-10-13] MEDS: HEPARIN SODIUM - SQ 10,000 UNITS/ML VIAL SQ SCH ×3 (04:41→21:10)
[2017-10-13] MEDS: PIPERACIL-TAZO 4.5 GM PREMIX 100 ML IV SCH ×2 (04:41→10:04)
[2017-10-13 04:43] LABS: AUTOMATED NEUTROPHIL # 18.2 TH/MM3 (1.8-7.7); BASOPHIL % 0.2 % (0.0-2.0); EOSINOPHIL # 0.1 TH/MM3 (0-0.4); EOSINOPHIL % 0.5 % (0.0-4.0); HEMATOCRIT 38.1 % (35.0-46.0); HEMOGLOBIN 12.1 GM/DL (11.6-15.3); LYMPH % 10.6 % (9.0-44.0); LYMPHOCYTE # 2.3 TH/MM3 (1.0-4.8); MEAN CELL VOLUME 77.1 FL (80.0-100.0); MEAN CORPUSCULAR HEMOGLOBIN 24.5 PG (27.0-34.0); MEAN CORPUSCULAR HGB CONC 31.8 % (32.0-36.0); MEAN PLATELET VOLUME 9.2 FL (7.0-11.0); MONO % 3.8 % (0.0-8.0); MONOCYTE # 0.8 TH/MM3 (0-0.9); NEUT % 84.9 % (16.0-70.0); PLATELET COUNT 270 TH/MM3 (150-450); RED BLOOD COUNT 4.95 MIL/MM3 (4.00-5.30); RED CELL DISTRIBUTION WIDTH 17.4 % (11.6-17.2); WHITE BLOOD COUNT 21.4 TH/MM3 (4.0-11.0)
[2017-10-13 05:22] LABS: ALBUMIN 2.8 GM/DL (3.4-5.0); ALKALINE PHOSPHATASE 85 U/L (45-117); ALT (GPT) 50 U/L (10-53); AST (GOT) 18 U/L (15-37); BLOOD UREA NITROGEN 17 MG/DL (7-18); CALCIUM 9.5 MG/DL (8.5-10.1); CHLORIDE 103 MEQ/L (98-107); CREATININE 0.72 MG/DL (0.50-1.00); GLOMERULAR FILTRATION RATE 103 ML/MIN (>89); GLUCOSE,RANDOM 146 MG/DL (74-106); MAGNESIUM 2.2 MG/DL (1.5-2.5); PHOSPHORUS 3.9 MG/DL (2.5-4.9); SODIUM (NA) 142 MEQ/L (136-145); TOTAL BILIRUBIN ADULT 0.3 MG/DL (0.2-1.0); TOTAL PROTEIN 7.6 GM/DL (6.4-8.2)
[2017-10-13] MEDS: INSULIN NovoLIN REGULAR SUPPLEMENTAL SCALE SQ SCH ×4 (08:00→21:11)
[2017-10-13] MEDS: RESP: ALBUTEROL 2.5 MG/IPRATROPIUM 0.5 MG NEB (SCH) NEB ×4 (08:00→19:46)
[2017-10-13] MEDS: FERROUS SULFATE 325 MG (65 MG ELEMENTAL IRON) TAB PO SCH (09:00)
[2017-10-13] MEDS: ASPIRIN 81 MG CHEW TAB PO SCH (09:00)
[2017-10-13] MEDS: DOCUSATE SODIUM 50 MG/SENNA 8.6 MG TAB PO SCH ×2 (09:00→21:00)
[2017-10-13] MEDS: AZITHROMYCIN 250 MG TAB PO SCH (10:00)
[2017-10-13] MEDS: BUMETANIDE 1 MG TAB PO SCH (10:01)
[2017-10-13] MEDS: BACLOFEN 10 MG TAB PO SCH ×3 (10:01→18:05)
[2017-10-13] MEDS: predniSONE 20 MG TAB PO SCH ×2 (10:01→21:10)
[2017-10-13] MEDS: FAMOTIDINE 20 MG TAB PO SCH ×2 (10:02→21:10)
[2017-10-13] MEDS: SODIUM CHLORIDE 0.9% FLUSH 10 ML FLUSH IV FLUSH SCH ×2 (10:04→21:10)
[2017-10-13] MEDS: INSULIN DETEMIR 100 UNITS/ML VIAL SQ SCH ×2 (10:30→21:00)
--- NOTE | 2017-10-13 13:21 | HHI.IDPN ---
Note Infectious Disease Note Patient is awake and very alert. Up in chair. On nasal O2, 2L. Afebrile. Denies SOB. Presented to the emergency department with hypoxia and respiratory distress. The patient has history of multiple sclerosis. She was noted to have cough. She has had multiple recent hospitalizations for pneumonia over the past few months including two at [facility] before this current admission here at [place]. CT scan of the lungs showed diffuse bilateral pulmonary infiltrates. PAST MEDICAL HISTORY 1. Multiple sclerosis. The patient has not been on medication for the past 2 years, per her son's report. 2. Hypertension. 3. Gastroesophageal reflux. 4. Chronic lung disease. 5. Hysterectomy. ALLERGIES LASIX, LATEX. ANTIBIOTICS: 1. Azithromycin. 2. Piperacillin / tazobactam. OBJECTIVE: Vital Signs Date Time Temp Pulse Resp B/P (MAP) Pulse Ox O2 Delivery O2 Flow Rate FiO2 10/13/17 08:00 72 10/13/17 08:00 98.7 84 30 128/84 (99) 97 10/13/17 06:00 72 10/13/17 04:00 85 10/13/17 04:00 98.0 85 30 126/85 (99) 100 10/13/17 02:00 82 10/13/17 00:00 88 10/13/17 00:00 98.4 88 30 127/91 (103) 97 10/12/17 22:00 95 10/12/17 20:13 98 Nasal Cannula 2.00 10/12/17 20:00 99 10/12/17 20:00 97.9 99 28 131/84 (100) 99 10/12/17 18:00 105 10/12/17 16:00 100 10/12/17 16:00 98.1 103 37 123/72 (89) 95 10/12/17 14:00 100 Laboratory Tests Test 10/12/17 04:59 10/13/17 03:55 White Blood Count 23.5 TH/MM3 21.4 TH/MM3 Red Blood Count 4.97 MIL/MM3 4.95 MIL/MM3 Hemoglobin 12.2 GM/DL 12.1 GM/DL Hematocrit 38.6 % 38.1 % Mean Corpuscular Volume 77.6 FL 77.1 FL Mean Corpuscular Hemoglobin 24.5 PG 24.5 PG Mean Corpuscular Hemoglobin Concent 31.6 % 31.8 % Red Cell Distribution Width 16.8 % 17.4 % Platelet Count 261 TH/MM3 270 TH/MM3 Mean Platelet Volume 9.4 FL 9.2 FL Neutrophils (%) (Auto) 71.5 % 84.9 % Lymphocytes (%) (Auto) 19.5 % 10.6 % Monocytes (%) (Auto) 6.7 % 3.8 % Eosinophils (%) (Auto) 1.9 % 0.5 % Basophils (%) (Auto) 0.4 % 0.2 % Neutrophils # (Auto) 16.8 TH/MM3 18.2 TH/MM3 Lymphocytes # (Auto) 4.6 TH/MM3 2.3 TH/MM3 Monocytes # (Auto) 1.6 TH/MM3 0.8 TH/MM3 Eosinophils # (Auto) 0.5 TH/MM3 0.1 TH/MM3 Basophils # (Auto) 0.1 TH/MM3 0.0 TH/MM3 CBC Comment DIFF FINAL DIFF FINAL Differential Comment Laboratory Tests Test 10/12/17 04:59 10/13/17 03:55 Blood Urea Nitrogen 16 MG/DL 17 MG/DL Creatinine 0.68 MG/DL 0.72 MG/DL Random Glucose 95 MG/DL 146 MG/DL Total Protein 7.5 GM/DL 7.6 GM/DL Albumin 2.9 GM/DL 2.8 GM/DL Calcium Level 10.3 MG/DL 9.5 MG/DL Phosphorus Level 2.9 MG/DL 3.9 MG/DL Magnesium Level 2.4 MG/DL 2.2 MG/DL Alkaline Phosphatase 83 U/L 85 U/L Aspartate Amino Transf (AST/SGOT) 23 U/L 18 U/L Alanine Aminotransferase (ALT/SGPT) 55 U/L 50 U/L Total Bilirubin 0.3 MG/DL 0.3 MG/DL Sodium Level 146 MEQ/L 142 MEQ/L Potassium Level 3.8 MEQ/L 3.9 MEQ/L Chloride Level 108 MEQ/L 103 MEQ/L Carbon Dioxide Level 32.6 MEQ/L 33.0 MEQ/L Anion Gap 5 MEQ/L 6 MEQ/L Estimat Glomerular Filtration Rate 110 ML/MIN 103 ML/MIN IMAGING: Chest X-Ray 10/12/17 0600 Signed Impressions: Service Date/Time: Thursday, October 12, 2017 03:11 - CONCLUSION: 1. Subsegmental airspace disease in the lungs. No significant effusion. No pneumothorax. Siddharth Garibay MD Chest X-Ray 10/10/17 0600 Signed Impressions: Service Date/Time: Tuesday, October 10, 2017 03:28 - CONCLUSION: Patchy density at the bases likely related to mild atelectasis or consolidation. Fernando Ann MD Upper Extremity Ultrasound 10/10/17 0000 Signed Impressions: Service Date/Time: Tuesday, October 10, 2017 19:18 - CONCLUSION: Venous thrombosis of the right cephalic vein from the elbow to the wrist. Fernando Rooney MD Head CT 10/05/17 0000 Signed Impressions: Service Date/Time: Thursday, October 05, 2017 09:32 - CONCLUSION: Negative for acute process. Dajuan Mendez MD FACR Chest X-Ray 10/05/17 0000 Signed Impressions: Service Date/Time: Thursday, October 05, 2017 07:50 - CONCLUSION: 1. Small bilateral effusions with patchy areas of infiltrate. There are air bronchograms seen on the left. Exam is concerning for pneumonia. Syed Mendez MD CT Angiography 09/30/17 1723 Signed Impressions: Service Date/Time: Saturday, September 30, 2017 17:50 - CONCLUSION: 1. Diffuse bilateral pulmonary infiltrates with cylindrical bronchiectasis. 2. No pulmonary embolus. Dre Moseley Jr., MD PHYSICAL EXAMINATION GENERAL: No acute distress. HEENT: No icterus. Oropharynx mucosa moist. NECK: No swelling or adenopathy. LUNGS: Decreased breath sounds. HEART: Regular, S1-S2 without audible murmurs, rubs or gallops. ABDOMEN: Bowel sounds present, soft, non tender. EXTREMITIES: No clubbing or cyanosis or edema. SKIN: No rash. NEURO: Non focal. IMPRESSION 1. Pneumonia. Abnormal CXR. Negative cultures. 2. Leukocytosis secondary to infection. Also on steroids which could be contributing. WBC still elevated. 3. Acute respiratory failure. On the vent. 4. Multiple sclerosis. Appears to be improving. RECOMMENDATIONS 1. Continue azithromycin PO. 2. Stop piperacillin/tazobactam and continue to monitor the WBC. 3. Monitor the WBC. Lorenzo Simpson MD Oct 13, 2017 13:21
--- NOTE | 2017-10-13 14:52 | HHI.PR ---
Subjective Remarks Follow-up for pneumonia Patient still looks weak, but verbalizes. Answers questions and follows command. Breathing is better, cough is better. Afebrile. No overnight events. Patient says generalized weakness, does not want to go to rehabilitation but agreed that she needs it and will consider it. Objective Vitals Vital Signs Date Time Temp Pulse Resp B/P (MAP) Pulse Ox O2 Delivery O2 Flow Rate FiO2 10/13/17 08:00 72 10/13/17 08:00 98.7 84 30 128/84 (99) 97 10/13/17 06:00 72 10/13/17 04:00 85 10/13/17 04:00 98.0 85 30 126/85 (99) 100 10/13/17 02:00 82 10/13/17 00:00 88 10/13/17 00:00 98.4 88 30 127/91 (103) 97 10/12/17 22:00 95 10/12/17 20:13 98 Nasal Cannula 2.00 10/12/17 20:00 99 10/12/17 20:00 97.9 99 28 131/84 (100) 99 10/12/17 18:00 105 10/12/17 16:00 100 10/12/17 16:00 98.1 103 37 123/72 (89) 95 I/O 10/12/17 10/12/17 10/12/17 10/13/17 10/13/17 10/13/17 07:00 15:00 23:00 07:00 15:00 23:00 Intake Total 300 ml 100 ml 1020 ml 100 ml Output Total 400 ml 1500 ml 450 ml Balance -100 ml 100 ml -480 ml -350 ml Intake Oral 300 ml 820 ml IV Total 100 ml 200 ml 100 ml Output Urine Total 400 ml 1000 ml 450 ml Stool Total 500 ml # Voids 2 # Bowel Movements 1 Result Diagram: 10/13/17 0355 10/13/17 0355 Objective Remarks GENERAL: This is a 52-year-old female patient really resting in bed on nasal cannula in no acute distress SKIN: Focused skin assessment warm/dry. HEAD: Atraumatic. Normocephalic. EYES: Pupils equal and round. No scleral icterus. No injection or drainage. ENT: No nasal bleeding or discharge. Mucous membranes pink and moist. NECK: Trachea midline. No JVD. CARDIOVASCULAR: Tachycardic. S1, S2. No S4. No murmur appreciated. RESPIRATORY: Few crackles appreciated in the bases bilaterally. No wheezing GASTROINTESTINAL: Abdomen soft, non-tender, nondistended. Hypoactive bowel sounds appreciated MUSCULOSKELETAL: No obvious deformities. No skin peripheral edema. Neuro: Cranial nerves II through XII are grossly intact. Strength is equal symmetric. Normal sensation. Follows commands A/P Assessment and Plan This is a 52-year-old female admitted for pneumonia with acute respiratory failure Acute respiratory failure secondary to pneumonia, interstitial lung disease- continue oxygen support, pulmonary following, continue steroids, switched oral prednisone per pulmonary. For pneumonia, cultures remained negative, chest x- ray supports diagnosis, stop Zosyn per infectious disease, continue azithromycin , follow WBC. Continue incentive spirometry, DuoNeb's. - Echo showed the left ventricular systolic function is normal with EF 60-65%. Normal left ventricular size. Wall thickness is normal, continue Bumex (home meds) Hypertension-lisinopril on hold. History of posterior pontine hemorrhagic CVA 2012 History of migraine headaches History of lupus cerebritis? - CT brain: No acute process, EEG - no epileptiform activity, neurology was following. Reconsulted neurology for final recommendations. Continue baclofen. Gastroesophageal reflux disease-continue famotidine Mechanical soft diet per speech therapy. Hyperglycemia - SSI Novulin R with Accu-Cheks every before meals/at bedtime hours at moderate regimen for glycemic control,Insulin detemir 5uQ12. DVT prophylaxis- SCD, Heparin SQ. Will need rehabilitation, consult case management. Patient agreed. Discharge Planning Discharge to SNF when medically ready, [facility] to [facility] Frieda Maria MD Oct 13, 2017 14:52
[2017-10-13] MEDS ORDERED: ACETAMINOPHEN/HYDROcodone 325 MG/10 MG TAB PO PRN (16:00)
--- NOTE | 2017-10-13 18:25 | HHI.PR ---
Subjective Remarks Alert and in No distress. On O2 3L N/C. Still very weak. CXR with Bilateral basal infiltrates. Able to eat a soft diet. Objective Vital Signs Date Time Temp Pulse Resp B/P (MAP) Pulse Ox O2 Delivery O2 Flow Rate FiO2 10/13/17 16:00 93 10/13/17 16:00 98.9 93 32 135/69 (91) 100 10/13/17 12:00 99.2 97 30 135/94 (108) 98 10/13/17 12:00 97 10/13/17 08:00 72 10/13/17 08:00 98.7 84 30 128/84 (99) 97 10/13/17 06:00 72 10/13/17 04:00 85 10/13/17 04:00 98.0 85 30 126/85 (99) 100 10/13/17 02:00 82 10/13/17 00:00 88 10/13/17 00:00 98.4 88 30 127/91 (103) 97 10/12/17 22:00 95 10/12/17 20:13 98 Nasal Cannula 2.00 10/12/17 20:00 99 10/12/17 20:00 97.9 99 28 131/84 (100) 99 I/O 10/12/17 10/12/17 10/12/17 10/13/17 10/13/17 10/13/17 07:00 15:00 23:00 07:00 15:00 23:00 Intake Total 300 ml 100 ml 1020 ml 100 ml Output Total 400 ml 1500 ml 450 ml Balance -100 ml 100 ml -480 ml -350 ml Intake Oral 300 ml 820 ml IV Total 100 ml 200 ml 100 ml Output Urine Total 400 ml 1000 ml 450 ml Stool Total 500 ml # Voids 2 # Bowel Movements 1 Result Diagram: 10/13/17 0355 10/13/17 0355 Objective Remarks This moderately overweight middle-aged -[place] lady alert . HEENT: Head normocephalic. Pupils are reactive. Sclerae are clear. Throat clear Neck: Supple. No bruits or thyroid enlargement, no lymphadenopathy. Chest: Distant breath sounds with occ wheezes bilaterally and occasional crackles at bases . Heart: Heart sounds are regular, S1-S2 with no murmur. No S3. Abdomen: Soft, obese without masses, no organomegaly or tenderness. Bowel sounds are active. Extremities: No edema. No calf tenderness. Reflexes are 1+. The patient is awake and moving all extremities. Cooperative. Skin: No lesions are observed. Assessment and Plan Assessment and Plan IMPRESSION: 1. Bilateral pneumonia. 2. Interstitial lung disease, chronic with reactive airway. 3. Acute respiratory failure. 4. History of multiple sclerosis. 5. Pulmonary Edema Plan : 1. Wean O2 to 2 L 2. Cont Antibiotics as ordered 3. Duonebs qid.PRN 4. Soft diet. 5. CXR CBC in am. 6. PFT when out of ICU 7. Prednisone 20 mg bid 8. PT Evaluation 9. Transfer to [facility] Mart Prescott MD Oct 13, 2017 18:25
[2017-10-14] VITALS (9 sets, daily range): BP systolic 116–138; BP diastolic 74–88; PULSE 67–106; RESP 16–29; TEMP 97.6–98.4; O2SAT 96–100
[2017-10-14] MEDS: CHLORHEXIDINE GLUCONATE 2 % 1 PACK (2 CLOTHS) TOP SCH (04:00)
[2017-10-14 06:09] LABS: AUTOMATED NEUTROPHIL # 16.3 TH/MM3 (1.8-7.7); BASOPHIL # 0.1 TH/MM3 (0-0.2); BASOPHIL % 0.3 % (0.0-2.0); EOSINOPHIL # 0.1 TH/MM3 (0-0.4); EOSINOPHIL % 0.5 % (0.0-4.0); HEMATOCRIT 38.5 % (35.0-46.0); HEMOGLOBIN 12.3 GM/DL (11.6-15.3); LYMPH % 11.9 % (9.0-44.0); LYMPHOCYTE # 2.3 TH/MM3 (1.0-4.8); MEAN CELL VOLUME 77.2 FL (80.0-100.0); MEAN CORPUSCULAR HEMOGLOBIN 24.6 PG (27.0-34.0); MEAN CORPUSCULAR HGB CONC 31.9 % (32.0-36.0); MEAN PLATELET VOLUME 9.3 FL (7.0-11.0); MONO % 3.7 % (0.0-8.0); MONOCYTE # 0.7 TH/MM3 (0-0.9); NEUT % 83.6 % (16.0-70.0); PLATELET COUNT 255 TH/MM3 (150-450); RED BLOOD COUNT 4.99 MIL/MM3 (4.00-5.30); RED CELL DISTRIBUTION WIDTH 16.6 % (11.6-17.2); WHITE BLOOD COUNT 19.5 TH/MM3 (4.0-11.0)
[2017-10-14] MEDS: HEPARIN SODIUM - SQ 10,000 UNITS/ML VIAL SQ SCH ×3 (06:11→21:34)
[2017-10-14] MEDS: INSULIN NovoLIN REGULAR SUPPLEMENTAL SCALE SQ SCH ×4 (08:00→21:00)
[2017-10-14] MEDS: FAMOTIDINE 20 MG TAB PO SCH ×2 (08:02→21:33)
[2017-10-14] MEDS: BUMETANIDE 1 MG TAB PO SCH (08:02)
[2017-10-14] MEDS: predniSONE 20 MG TAB PO SCH ×2 (08:02→21:33)
[2017-10-14] MEDS: BACLOFEN 10 MG TAB PO SCH ×3 (08:02→17:38)
[2017-10-14] MEDS: AZITHROMYCIN 250 MG TAB PO SCH (08:02)
[2017-10-14] MEDS: ASPIRIN 81 MG CHEW TAB PO SCH (08:03)
[2017-10-14] MEDS: FERROUS SULFATE 325 MG (65 MG ELEMENTAL IRON) TAB PO SCH (08:03)
[2017-10-14] MEDS: SODIUM CHLORIDE 0.9% FLUSH 10 ML FLUSH IV FLUSH SCH ×2 (08:03→21:34)
[2017-10-14] MEDS: DOCUSATE SODIUM 50 MG/SENNA 8.6 MG TAB PO SCH ×2 (08:03→21:33)
[2017-10-14] MEDS: INSULIN DETEMIR 100 UNITS/ML VIAL SQ SCH ×2 (08:04→21:35)
[2017-10-14] MEDS: RESP: ALBUTEROL 2.5 MG/IPRATROPIUM 0.5 MG NEB (SCH) NEB ×4 (08:16→19:17)
--- NOTE | 2017-10-14 09:02 | HHI.PR ---
Review/Management Diagnosis Multiple Sclerosis---she feels weaker in general than her baseline. THis may be a "pseudoexacerbation" from recent infection (pneumonia) vs true MS exacerbation Plan MRI brain and cervical spine to assess for active MS plaques. Diagnosis/Plan: Subjective Subjective Comments No acute events reported Has been more alert but feels generally weak. Active Medications Current Medications Medications (Trade) Dose Ordered Sig/Marielos Route Start Time Stop Time Status Last Admin (Aspirin Chew) 81 mg DAILY PO 10/01/17 09:00 10/12/17 09:11 (Lioresal) 10 mg TID PO 10/01/17 09:00 10/14/17 08:02 (Antivert) 12.5 mg BID PRN PO 09/30/17 19:30 (NS Flush) 2 ml UNSCH PRN IV FLUSH 09/30/17 19:30 10/06/17 22:39 (NS Flush) 2 ml BID IV FLUSH 09/30/17 21:00 10/14/17 08:03 (Tylenol) 650 mg Q6H PRN PO 09/30/17 19:30 (Morphine Inj) 2 mg Q2H PRN IV PUSH 09/30/17 20:30 10/10/17 03:07 (Zofran Inj) 4 mg Q6H PRN IV PUSH 09/30/17 19:30 (Heparin Inj) 5,000 units Q8H SQ 09/30/17 20:00 10/14/17 06:11 Miscellaneous Information 1 Q361D XX 09/30/17 19:30 09/30/17 19:30 (Chlorhexidine 2% Cloth) Taper DAILY@04 TOP 10/01/17 04:00 09/27/18 03:59 10/08/17 04:00 (Chlorhexidine 2% Cloth) 3 pack UNSCH PRN TOP 09/30/17 19:30 (Carolyn-Colace) 1 tab BID PO 09/30/17 21:00 10/12/17 09:11 (Milk Of Magnesia Liq) 30 ml Q12H PRN PO 09/30/17 19:30 (Senokot) 17.2 mg Q12H PRN PO 09/30/17 19:30 (Dulcolax Supp) 10 mg DAILY PRN RECTAL 09/30/17 19:30 10/02/17 08:18 (Lactulose Liq) 30 ml DAILY PRN PO 09/30/17 19:30 (Pill Splitter) 1 ea UNSCH PRN OTHER 09/30/17 20:30 Potassium Chloride 100 ml @ 50 mls/hr Q2H PRN IV 10/01/17 03:15 Potassium Chloride 100 ml @ 50 mls/hr Q2H PRN IV 10/01/17 03:15 (K-Lyte Cl Eff) 50 meq UNSCH PRN PO 10/01/17 03:15 10/11/17 15:31 Potassium Chloride 100 ml @ 25 mls/hr UNSCH PRN IV 10/01/17 03:15 Potassium Chloride 100 ml @ 50 mls/hr Q2H PRN IV 10/01/17 03:15 Magnesium Sulfate 4 gm/Sodium Chloride 100 ml @ 50 mls/hr UNSCH PRN IV 10/01/17 03:15 (Mag-Ox) 800 mg UNSCH PRN PO 10/01/17 03:15 Magnesium Sulfate 2 gm/Sodium Chloride 100 ml @ 50 mls/hr UNSCH PRN IV 10/01/17 03:15 (K-Phos) 2,000 mg Q4H PRN PO 10/01/17 03:15 Sodium Phosphate 30 mmol/Sodium Chloride 250 ml @ 42 mls/hr UNSCH PRN IV 10/01/17 03:15 (K-Phos) 2,000 mg UNSCH PRN PO/TUBE 10/01/17 03:15 Potassium Phosphate 30 mmol/ Sodium Chloride 260 ml @ 42 mls/hr UNSCH PRN IV 10/01/17 03:15 (D50w (Vial) Inj) 50 ml UNSCH PRN IV PUSH 10/01/17 09:30 (Glucagon Inj) 1 mg UNSCH PRN OTHER 10/01/17 09:30 (Levemir Inj) 5 units Q12HR SQ 10/03/17 10:15 10/14/17 08:04 (Bumetanide) 1 mg DAILY PO 10/07/17 18:19 10/14/17 08:02 (Albuterol Neb) 2.5 mg Q2HR NEB PRN NEB 10/08/17 01:15 (Duoneb Neb) 1 ampule Q4HR WHILE AWAKE NEB NEB 10/11/17 16:00 10/14/17 08:16 (Zithromax) 500 mg DAILY PO 10/12/17 09:00 10/14/17 08:02 (Pepcid) 20 mg BID PO 10/12/17 09:00 10/14/17 08:02 (Ferrous Sulfate) 325 mg DAILY PO 10/12/17 09:00 10/12/17 09:10 (NovoLIN R SUPPLEMENTAL SCALE) 1 ACHS SQ 10/12/17 08:00 10/13/17 21:11 (Deltasone) 20 mg BID PO 10/12/17 21:00 10/14/17 08:02 (Byram 10-325 Mg) 1 tab Q6H PRN PO 10/13/17 16:00 Allergies Allergies Coded Allergies latex (Unverified Allergy, Unknown, RASH, 09/30/17) furosemide (Verified Adverse Reaction, Unknown, 09/30/17) Exam I&O / VS Vital Signs Date Time Temp Pulse Resp B/P (MAP) Pulse Ox O2 Delivery O2 Flow Rate FiO2 10/14/17 08:16 100 Nasal Cannula 2.00 10/14/17 04:00 97.9 67 28 131/79 (96) 100 10/14/17 04:00 67 10/14/17 00:00 97.9 73 19 128/75 (92) 100 10/14/17 00:00 73 10/13/17 20:00 98.6 92 28 127/81 (96) 98 10/13/17 20:00 92 10/13/17 19:46 98 Nasal Cannula 2.00 10/13/17 16:00 93 10/13/17 16:00 98.9 93 32 135/69 (91) 100 10/13/17 12:00 99.2 97 30 135/94 (108) 98 10/13/17 12:00 97 Exam Comments alert, follows commands PERRL She has difficulty with right gaze with an LACI on the left MOTOR 4/5 BUE and BLE Objective Micro and Labs Laboratory Tests Test 10/14/17 04:55 White Blood Count 19.5 Red Blood Count 4.99 Hemoglobin 12.3 Hematocrit 38.5 Mean Corpuscular Volume 77.2 Mean Corpuscular Hemoglobin 24.6 Mean Corpuscular Hemoglobin Concent 31.9 Red Cell Distribution Width 16.6 Platelet Count 255 Mean Platelet Volume 9.3 Neutrophils (%) (Auto) 83.6 Lymphocytes (%) (Auto) 11.9 Monocytes (%) (Auto) 3.7 Eosinophils (%) (Auto) 0.5 Basophils (%) (Auto) 0.3 Neutrophils # (Auto) 16.3 Lymphocytes # (Auto) 2.3 Monocytes # (Auto) 0.7 Eosinophils # (Auto) 0.1 Basophils # (Auto) 0.1 CBC Comment DIFF FINAL Differential Comment Date/Time Source Procedure Growth Status 09/30/17 20:20 Blood Other Aerobic Blood Culture - Final NO GROWTH IN 5 DAYS Complete 09/30/17 20:20 Blood Other Anaerobic Blood Culture - Final NO GROWTH IN 5 DAYS Complete 10/05/17 11:40 Sputum Endotracheal Gram Stain - Final Complete 10/05/17 11:40 Sputum Endotracheal Sputum Culture - Final LIGHT GROWTH NORMAL RESPIRATORY FAM Complete 10/03/17 10:45 Urine Catheterized Urine Streptococcus pneumoniae Antigen (M - Final PRESUMPTIVE NEGATIVE FOR STREPTOCOCCU... Complete Shaq Armstrong MD PhD Oct 14, 2017 09:02
[2017-10-14] MEDS ORDERED: LORazepam 2 MG/ML VIAL IV PUSH SCH (09:15)
--- NOTE | 2017-10-14 11:38 | RADRPT ---
EXAM DATE/TIME: 10/14/2017 11:13 [facility] COMPARISON: CHEST SINGLE AP, October 12, 2017, 3:11. INDICATIONS : Evaluate for pneumonia. MEDICAL HISTORY : Stroke. Hypercholesterolemia. Hypertension. Neck pain. Dizziness. Anticoagulant therapy. Pneumonia. A rthritis. Depression SURGICAL HISTORY : Hysterectomy. section. G tube placement/removal ENCOUNTER: Subsequent ACUITY: 2 weeks PAIN SCORE: 0/10 LOCATION: Bilateral chest FINDINGS: AP and lateral views the chest were obtained again demonstrates patchy bilateral airspace disease in both lungs. There are air bronchograms left lower lobe. There is no effusion. The heart size at the u pper limits of normal. The study is Midinspiratory. The bony thorax is intact. CONCLUSION: Diffuse airspace disease. Oscar Luu MD on October 14, 2017 at 11:34 Board Certified Radiologist. This report was verified electronically.
--- NOTE | 2017-10-14 14:41 | RADRPT ---
EXAM DATE/TIME: 10/14/2017 11:57 [facility] COMPARISON: CT BRAIN W/O CONTRAST, October 05, 2017, 9:32. INDICATIONS : Multiple sclerosis CONTRAST: 17 cc Omniscan (gadodiamide) IV MEDICAL HISTORY : Hypertension. SURGICAL HISTORY : Hysterectomy. section. ENCOUNTER: Subsequent ACUITY: 1 week PAIN SCORE: 0/10 LOCATION: cranial TECHNIQUE: Multiplanar, multisequence MRI of the brain was performed both prior to and following the administrat ion of paramagnetic contrast. FINDINGS: CEREBRUM: Old left basal ganglia infarct. The ventricles are normal for age. No evidence of midline shift, mas s lesion, hemorrhage or acute infarction. No extraaxial fluid collections are seen. A few scattered areas of susceptibility artifact are noted to be some petechial hemorrhage. The pituitary gland and s uprasellar cistern are normal in configuration. WHITE MATTER: A few focal scattered areas of high flair signal abnormalities are seen in the periventricular white matter. POSTERIOR FOSSA: The cerebellum and brainstem are intact. The 4th ventricle is midline. The cerebellopontine angle is unremarkable. The cerebellar tonsils are normal in position. DIFFUSION IMAGING: No focal areas of restricted diffusion are seen. No evidence of acute infarction. EXTRACRANIAL: The visualized portions of the orbits and paranasal sinuses are unremarkable. POST-CONTRAST: No abnormal areas of parenchymal or dural enhancement. No evidence of blood-brain barrier breakdown. CONCLUSION: 1. Remote left basal ganglia infarct. 2. Minimal nonspecific periventricular white matter changes which may be related to demyelinating pro cess such as multiple sclerosis. García Jamil MD on October 14, 2017 at 14:36 Board Certified Radiologist. This report was verified electronically.
[2017-10-14] MEDS ORDERED: GADODIAMIDE PF 287 MG/ML 20 ML VIAL (for RAD MRI) IV PUSH ONE (14:45)
--- NOTE | 2017-10-14 14:58 | RADRPT ---
EXAM DATE/TIME: 10/14/2017 11:57 [facility] COMPARISON: No previous studies available for comparison. INDICATIONS : Mulitple sclerosis. CONTRAST: 17 cc Omniscan (gadodiamide) IV MEDICAL HISTORY : Hypertension. SURGICAL HISTORY : Hysterectomy. section. ENCOUNTER: Subsequent ACUITY: 1 week PAIN SCORE: 0/10 LOCATION: cranial TECHNIQUE: Multiplanar, multisequence MRI examination of the cervical spine was performed. FINDINGS: VERTEBRAE: Normal vertebral body height. Homogeneous marrow signal. ALIGNMENT: No evidence of subluxation. CORD: Normal configuration and signal. POST FOSSA: The cerebellar tonsils are normal in position. POST-CONTRAST: No abnormal areas of enhancement are seen. C2-C3: The thecal sac has a normal configuration. There is no evidence of disc herniation or spinal canal stenosis. The neural foramina are patent bilaterally. C3-C4: The thecal sac has a normal configuration. There is no evidence of disc herniation or spinal canal s tenosis. The neural foramina are patent bilaterally. C4-C5: The thecal sac has a normal configuration. There is no evidence of disc herniation or spinal canal s tenosis. The neural foramina are patent bilaterally. C5-C6: Mild broad-based protrusion abuts the ventral thecal sac and causes cord flattening. Mild canal steno sis. Uncovertebral spurring causes moderate left and mild right-sided neural foraminal encroachment C6-C7: Mild broad-based protrusion abuts the ventral thecal sac and causes cord flattening. Mild canal steno sis. Uncovertebral spurring causes bilateral neural foraminal encroachment C7-T1: The thecal sac has a normal configuration. There is no evidence of disc herniation or spinal canal s tenosis. The neural foramina are patent bilaterally. CONCLUSION: 1. Protrusion at C5-6 and C6-7 levels. Mild canal stenosis. 2. No demyelinating plaque seen. García Jamil MD on October 14, 2017 at 14:52 Board Certified Radiologist. This report was verified electronically.
--- NOTE | 2017-10-14 16:18 | HHI.PR ---
Subjective Remarks Mr. Garcia is a 52-year-old female. She is doing well today with some improvement of symptoms including her weakness and cough. She is status post MRI of brain and chest x-ray. MRI of the brain shows evidence of distant CVA and active multiple sclerosis. She has been admitted here with multiple sclerosis exacerbation at this time. Chest x-ray shows diffuse airspace disease without any acute pathology. Objective Vital Signs Date Time Temp Pulse Resp B/P (MAP) Pulse Ox O2 Delivery O2 Flow Rate FiO2 10/14/17 16:06 97.6 105 16 135/85 (102) 100 10/14/17 12:00 92 10/14/17 12:00 98.3 92 20 100 10/14/17 08:16 100 Nasal Cannula 2.00 10/14/17 08:00 98.3 73 29 130/88 (102) 100 10/14/17 08:00 73 10/14/17 04:00 97.9 67 28 131/79 (96) 100 10/14/17 04:00 67 10/14/17 00:00 97.9 73 19 128/75 (92) 100 10/14/17 00:00 73 10/13/17 20:00 98.6 92 28 127/81 (96) 98 10/13/17 20:00 92 10/13/17 19:46 98 Nasal Cannula 2.00 I/O 10/13/17 10/13/17 10/13/17 10/14/17 10/14/17 10/14/17 07:00 15:00 23:00 07:00 15:00 23:00 Intake Total 100 ml 100 ml 480 ml Output Total 450 ml 1000 ml 500 ml Balance -350 ml -900 ml -20 ml Intake Oral 480 ml IV Total 100 ml 100 ml Output Urine Total 450 ml 1000 ml 500 ml # Bowel Movements 0 Result Diagram: 10/14/17 0455 10/13/17 0355 Objective Remarks GENERAL: NAD, A&Ox3 HEAD: Normocephalic. NECK: Supple, trachea midline. No lymphadenopathy. EYES: No scleral icterus. No injection or drainage. CARDIOVASCULAR: Regular rate and rhythm without murmurs, gallops, or rubs. RESPIRATORY: Breath sounds equal bilaterally. No accessory muscle use. GASTROINTESTINAL: Abdomen soft, non-tender, nondistended. MUSCULOSKELETAL: No cyanosis, or edema. SKIN: Warm and dry. NEURO: No focal neurological deficitis. Global weakness. A/P Problem List: (1) Shortness of breath ICD Code: R06.02 - Shortness of breath Status: Acute (2) Pneumonia ICD Code: J18.9 - Pneumonia, unspecified organism Status: Acute (3) Hypoxia ICD Code: R09.02 - Hypoxemia Status: Acute Assessment and Plan 52-year-old female admitted for pneumonia with acute respiratory failure with multiple sclerosis flareup Community-acquired pneumonia Continue Zosyn Continue azithromycin Continue jaquelineo wilfrid Infectious disease physician following Oxygen supplementation as needed History of posterior pontine hemorrhagic CVA 2012 Dysphagia, chronic History of migraine headaches History of lupus cerebritis Multiple sclerosis Continue baclofen Follow clinically Mechanical soft diet Gastroesophageal reflux disease continue famotidine Hyperglycemia Follow blood sugars Insulin sliding scale Diabetic diet DVT prophylaxis SCD, Heparin SQ. Discharge planning Anticipate alf facility at discharge versus inpatient rehabilitation Syed Car MD Oct 14, 2017 16:18
--- NOTE | 2017-10-14 18:31 | HHI.PR ---
Subjective Remarks Alert and still weak. On O2 3L N/C.Wants Scopolamine for vertigo CXR with Bilateral basal infiltrates. Able to eat a soft diet. Objective Vital Signs Date Time Temp Pulse Resp B/P (MAP) Pulse Ox O2 Delivery O2 Flow Rate FiO2 10/14/17 16:06 97.6 105 16 135/85 (102) 100 10/14/17 12:00 92 10/14/17 12:00 98.3 92 20 100 10/14/17 08:16 100 Nasal Cannula 2.00 10/14/17 08:00 98.3 73 29 130/88 (102) 100 10/14/17 08:00 73 10/14/17 04:00 97.9 67 28 131/79 (96) 100 10/14/17 04:00 67 10/14/17 00:00 97.9 73 19 128/75 (92) 100 10/14/17 00:00 73 10/13/17 20:00 98.6 92 28 127/81 (96) 98 10/13/17 20:00 92 10/13/17 19:46 98 Nasal Cannula 2.00 I/O 10/13/17 10/13/17 10/13/17 10/14/17 10/14/17 10/14/17 07:00 15:00 23:00 07:00 15:00 23:00 Intake Total 100 ml 100 ml 480 ml Output Total 450 ml 1000 ml 500 ml Balance -350 ml -900 ml -20 ml Intake Oral 480 ml IV Total 100 ml 100 ml Output Urine Total 450 ml 1000 ml 500 ml # Bowel Movements 0 Result Diagram: 10/14/17 0455 10/13/17 0355 Objective Remarks This moderately overweight middle-aged -[place] lady awake . HEENT: Head normocephalic. Pupils are reactive. Sclerae are clear. Throat clear Neck: Supple. No bruits or thyroid enlargement, no lymphadenopathy. Chest: Distant breath sounds with occ wheezes bilaterally. Heart: Heart sounds are regular, S1-S2 with no murmur. No S3. Abdomen: Soft, obese without masses, no organomegaly or tenderness. Bowel sounds are active. Extremities: No edema. No calf tenderness. Reflexes are 1+. The patient is awake and moving all extremities. Cooperative. Skin: No lesions are observed. Assessment and Plan Assessment and Plan IMPRESSION: 1. Bilateral pneumonia. 2. Interstitial lung disease, chronic with reactive airway. 3. Acute respiratory failure. 4. History of multiple sclerosis. 5. Pulmonary Edema Plan : 1. Wean O2 to 2 L 2. Cont Antibiotics as ordered 3. Duonebs qid.PRN 4. Soft diet. 5. BMP CBC in am. 6. PFT with bronchodilator 7. Prednisone 20 mg bid 8. PT Evaluation 9. Add Scopolamine patch 1.5 mg /72 hr. Mart Prescott MD Oct 14, 2017 18:31
[2017-10-14] MEDS ORDERED: REMOVE OLD PATCH T-DERMAL SCH (19:00)
[2017-10-14] MEDS ORDERED: SCOPOLAMINE 1.5 MG PATCH T-DERMAL SCH (19:00)
[2017-10-15] VITALS (10 sets, daily range): BP systolic 104–138; BP diastolic 63–91; PULSE 78–112; RESP 16–20; TEMP 97.2–99.4; O2SAT 96–100
[2017-10-15] MEDS: HEPARIN SODIUM - SQ 10,000 UNITS/ML VIAL SQ SCH ×3 (03:50→20:28)
[2017-10-15] MEDS: CHLORHEXIDINE GLUCONATE 2 % 1 PACK (2 CLOTHS) TOP SCH (03:50)
[2017-10-15 07:15] LABS: AUTOMATED NEUTROPHIL # 15.7 TH/MM3 (1.8-7.7); BASOPHIL # 0.1 TH/MM3 (0-0.2); BASOPHIL % 0.3 % (0.0-2.0); EOSINOPHIL # 0.4 TH/MM3 (0-0.4); HEMATOCRIT 37.3 % (35.0-46.0); HEMOGLOBIN 11.8 GM/DL (11.6-15.3); LYMPH % 11.2 % (9.0-44.0); LYMPHOCYTE # 2.1 TH/MM3 (1.0-4.8); MEAN CELL VOLUME 77.8 FL (80.0-100.0); MEAN CORPUSCULAR HEMOGLOBIN 24.7 PG (27.0-34.0); MEAN CORPUSCULAR HGB CONC 31.8 % (32.0-36.0); MEAN PLATELET VOLUME 9.7 FL (7.0-11.0); MONO % 3.1 % (0.0-8.0); MONOCYTE # 0.6 TH/MM3 (0-0.9); NEUT % 83.4 % (16.0-70.0); PLATELET COUNT 240 TH/MM3 (150-450); RED BLOOD COUNT 4.79 MIL/MM3 (4.00-5.30); RED CELL DISTRIBUTION WIDTH 16.7 % (11.6-17.2); WHITE BLOOD COUNT 18.8 TH/MM3 (4.0-11.0)
[2017-10-15] MEDS: INSULIN NovoLIN REGULAR SUPPLEMENTAL SCALE SQ SCH ×4 (07:41→20:25)
[2017-10-15] MEDS: ASPIRIN 81 MG CHEW TAB PO SCH (08:23)
[2017-10-15] MEDS: AZITHROMYCIN 250 MG TAB PO SCH (08:23)
[2017-10-15] MEDS: DOCUSATE SODIUM 50 MG/SENNA 8.6 MG TAB PO SCH ×2 (08:24→20:28)
[2017-10-15] MEDS: predniSONE 20 MG TAB PO SCH ×2 (08:24→20:27)
[2017-10-15] MEDS: BUMETANIDE 1 MG TAB PO SCH (08:24)
[2017-10-15] MEDS: BACLOFEN 10 MG TAB PO SCH ×3 (08:24→17:48)
[2017-10-15] MEDS: FERROUS SULFATE 325 MG (65 MG ELEMENTAL IRON) TAB PO SCH (08:24)
[2017-10-15] MEDS: FAMOTIDINE 20 MG TAB PO SCH ×2 (08:24→20:28)
[2017-10-15] MEDS: SODIUM CHLORIDE 0.9% FLUSH 10 ML FLUSH IV FLUSH SCH ×2 (08:25→20:28)
[2017-10-15] MEDS: INSULIN DETEMIR 100 UNITS/ML VIAL SQ SCH ×2 (08:25→20:35)
[2017-10-15] MEDS: RESP: ALBUTEROL 2.5 MG/IPRATROPIUM 0.5 MG NEB (SCH) NEB ×3 (09:08→15:53)
--- NOTE | 2017-10-15 15:17 | HHI.PR ---
Subjective Remarks Patient seen this morning around 10 AM. She says that breathing is getting better. She denies any chest pain. Objective Vital Signs Date Time Temp Pulse Resp B/P (MAP) Pulse Ox O2 Delivery O2 Flow Rate FiO2 10/15/17 12:00 97.6 96 16 124/82 (96) 100 10/15/17 09:09 100 Nasal Cannula 3.00 10/15/17 08:00 97.2 94 20 138/91 (107) 100 10/15/17 08:00 83 10/15/17 04:30 98.0 90 18 132/84 (100) 100 10/14/17 23:52 98.4 99 18 116/79 (91) 99 10/14/17 20:15 98.1 106 18 138/74 (95) 99 10/14/17 19:18 96 Nasal Cannula 3.00 10/14/17 16:06 97.6 105 16 135/85 (102) 100 I/O 10/14/17 10/14/17 10/14/17 10/15/17 10/15/17 10/15/17 07:00 15:00 23:00 07:00 15:00 23:00 Intake Total 480 ml 0 ml Output Total 500 ml 250 ml Balance -20 ml -250 ml Intake Oral 480 ml 0 ml Output Urine Total 500 ml 250 ml # Voids 1 # Bowel Movements 1 Result Diagram: 10/15/17 0551 10/13/17 0355 Objective Remarks GENERAL: Patient sitting up in bed. Appears comfortable. SKIN: Warm and dry. HEAD: Normocephalic. EYES: No scleral icterus. No injection or drainage. NECK: Supple, trachea midline. No JVD. CARDIOVASCULAR: Regular rate and rhythm without murmurs, gallops, or rubs. RESPIRATORY: Breath sounds equal bilaterally. No accessory muscle use. Does have some rhonchi bilaterally. GASTROINTESTINAL: Abdomen soft, non-tender, nondistended. MUSCULOSKELETAL: No cyanosis, or edema. BACK: Nontender without obvious deformity. No CVA tenderness. A/P Assessment and Plan 52-year-old female admitted for pneumonia with acute respiratory failure with multiple sclerosis flareup //Community-acquired pneumonia Continue Zosyn Continue azithromycin Continue [facility] Infectious disease physician following Oxygen supplementation as needed = Patient continues improving. Likely discharge tomorrow to SNF. Appreciate pulmonology assistance. ////History of posterior pontine hemorrhagic CVA 2012 Dysphagia, chronic History of migraine headaches History of lupus cerebritis Multiple sclerosis Continue baclofen Follow clinically Mechanical soft diet //Gastroesophageal reflux disease continue famotidine //Hyperglycemia Follow blood sugars Insulin sliding scale Diabetic diet = Glucose up to 200 today. Expect improvement with tapering steroids further. DVT prophylaxis SCD, Heparin SQ. Discharge Planning [facility]tic[facility] facility at discharge. PT assistance. Adalid Jaffe MD Oct 15, 2017 15:17
--- NOTE | 2017-10-15 17:44 | HHI.IDPN ---
Note Infectious Disease Note Patient is awake and very alert. Up in chair. Feeding self dinner. Slight tremulousness. On nasal O2, 2L. Afebrile. Denies SOB. Presented to the emergency department with hypoxia and respiratory distress. The patient has history of multiple sclerosis. She was noted to have cough. She has had multiple recent hospitalizations for pneumonia over the past few months including two at [facility] before this current admission here at [place]. CT scan of the lungs showed diffuse bilateral pulmonary infiltrates. PAST MEDICAL HISTORY 1. Multiple sclerosis. The patient has not been on medication for the past 2 years, per her son's report. 2. Hypertension. 3. Gastroesophageal reflux. 4. Chronic lung disease. 5. Hysterectomy. ALLERGIES LASIX, LATEX. ANTIBIOTICS: Azithromycin. Current Medications Medications (Trade) Dose Ordered Sig/Marielos Route PRN Reason Start Time Stop Time Status Last Admin Dose Admin Aspirin (Aspirin Chew) 81 mg DAILY PO 10/01/17 09:00 10/12/17 09:11 Baclofen (Lioresal) 10 mg TID PO 10/01/17 09:00 10/15/17 13:43 Meclizine HCl (Antivert) 12.5 mg BID PRN PO VERTIGO 09/30/17 19:30 Sodium Chloride (NS Flush) 2 ml UNSCH PRN IV FLUSH FLUSH AFTER USING IV ACCESS 09/30/17 19:30 10/06/17 22:39 Sodium Chloride (NS Flush) 2 ml BID IV FLUSH 09/30/17 21:00 10/15/17 08:25 Acetaminophen (Tylenol) 650 mg Q6H PRN PO PAIN 1-5 AND/OR FEVER >101F 09/30/17 19:30 Morphine Sulfate (Morphine Inj) 2 mg Q2H PRN IV PUSH breakthrough pain 09/30/17 20:30 10/10/17 03:07 Ondansetron HCl (Zofran Inj) 4 mg Q6H PRN IV PUSH NAUSEA OR VOMITING 09/30/17 19:30 Heparin Sodium (Porcine) (Heparin Inj) 5,000 units Q8H SQ 09/30/17 20:00 10/15/17 13:43 Miscellaneous Information 1 Q361D XX 09/30/17 19:30 09/30/17 19:30 Chlorhexidine Gluconate (Chlorhexidine 2% Cloth) Taper DAILY@04 TOP 10/01/17 04:00 09/27/18 03:59 10/08/17 04:00 Chlorhexidine Gluconate (Chlorhexidine 2% Cloth) 3 pack UNSCH PRN TOP HYGIENIC CARE 09/30/17 19:30 Senna/Docusate Sodium (Carolyn-Colace) 1 tab BID PO 09/30/17 21:00 10/15/17 08:24 Magnesium Hydroxide (Milk Of Magnesia Liq) 30 ml Q12H PRN PO Mild constipation 09/30/17 19:30 Sennosides (Senokot) 17.2 mg Q12H PRN PO Moderate constipation 09/30/17 19:30 Bisacodyl (Dulcolax Supp) 10 mg DAILY PRN RECTAL SEVERE CONSITIPATION 09/30/17 19:30 10/02/17 08:18 Lactulose (Lactulose Liq) 30 ml DAILY PRN PO SEVERE CONSITIPATION 09/30/17 19:30 Miscellaneous (Pill Splitter) 1 ea UNSCH PRN OTHER SEE LABEL COMMENTS 09/30/17 20:30 Dextrose (D50w (Vial) Inj) 50 ml UNSCH PRN IV PUSH HYPOGLYCEMIA-SEE COMMENTS 10/01/17 09:30 Glucagon (Glucagon Inj) 1 mg UNSCH PRN OTHER HYPOGLYCEMIA-SEE COMMENTS 10/01/17 09:30 Insulin Detemir (Levemir Inj) 5 units Q12HR SQ 10/03/17 10:15 10/15/17 08:25 Bumetanide (Bumetanide) 1 mg DAILY PO 10/07/17 18:19 10/15/17 08:24 Albuterol Sulfate (Albuterol Neb) 2.5 mg Q2HR NEB PRN NEB dyspnea 10/08/17 01:15 Azithromycin (Zithromax) 500 mg DAILY PO 10/12/17 09:00 10/15/17 08:23 Famotidine (Pepcid) 20 mg BID PO 10/12/17 09:00 10/15/17 08:24 Ferrous Sulfate (Ferrous Sulfate) 325 mg DAILY PO 10/12/17 09:00 10/12/17 09:10 Insulin Human Regular (NovoLIN R SUPPLEMENTAL SCALE) 1 ACHS SQ 10/12/17 08:00 10/15/17 12:00 Prednisone (Deltasone) 20 mg BID PO 10/12/17 21:00 10/15/17 08:24 Acetaminophen/ Hydrocodone Bitart ([place] 10-325 Mg) 1 tab Q6H PRN PO pain 6-10 10/13/17 16:00 Scopolamine (Transderm-Scop 1.5 Mg Patch.72 Hr) 1 patch Q3D T-DERMAL 10/14/17 19:00 10/14/17 18:58 Miscellaneous Information 1 Q3D T-DERMAL 10/14/17 19:00 10/14/17 18:59 OBJECTIVE: Vital Signs Date Time Temp Pulse Resp B/P (MAP) Pulse Ox O2 Delivery O2 Flow Rate FiO2 10/15/17 15:54 100 Nasal Cannula 2.00 10/15/17 12:00 97.6 96 16 124/82 (96) 100 10/15/17 12:00 112 10/15/17 09:09 100 Nasal Cannula 3.00 10/15/17 08:00 97.2 94 20 138/91 (107) 100 10/15/17 08:00 83 10/15/17 04:30 98.0 90 18 132/84 (100) 100 10/14/17 23:52 98.4 99 18 116/79 (91) 99 10/14/17 20:15 98.1 106 18 138/74 (95) 99 10/14/17 19:18 96 Nasal Cannula 3.00 Laboratory Tests Test 10/14/17 04:55 10/15/17 05:51 White Blood Count 19.5 TH/MM3 18.8 TH/MM3 Red Blood Count 4.99 MIL/MM3 4.79 MIL/MM3 Hemoglobin 12.3 GM/DL 11.8 GM/DL Hematocrit 38.5 % 37.3 % Mean Corpuscular Volume 77.2 FL 77.8 FL Mean Corpuscular Hemoglobin 24.6 PG 24.7 PG Mean Corpuscular Hemoglobin Concent 31.9 % 31.8 % Red Cell Distribution Width 16.6 % 16.7 % Platelet Count 255 TH/MM3 240 TH/MM3 Mean Platelet Volume 9.3 FL 9.7 FL Neutrophils (%) (Auto) 83.6 % 83.4 % Lymphocytes (%) (Auto) 11.9 % 11.2 % Monocytes (%) (Auto) 3.7 % 3.1 % Eosinophils (%) (Auto) 0.5 % 2.0 % Basophils (%) (Auto) 0.3 % 0.3 % Neutrophils # (Auto) 16.3 TH/MM3 15.7 TH/MM3 Lymphocytes # (Auto) 2.3 TH/MM3 2.1 TH/MM3 Monocytes # (Auto) 0.7 TH/MM3 0.6 TH/MM3 Eosinophils # (Auto) 0.1 TH/MM3 0.4 TH/MM3 Basophils # (Auto) 0.1 TH/MM3 0.1 TH/MM3 CBC Comment DIFF FINAL DIFF FINAL Differential Comment Laboratory Tests Test 10/14/17 14:10 Human Chorionic Gonadotropin, Quant 4 MIU/ML IMAGING: Chest X-Ray 10/12/17 0600 Signed Impressions: Service Date/Time: Thursday, October 12, 2017 03:11 - CONCLUSION: 1. Subsegmental airspace disease in the lungs. No significant effusion. No pneumothorax. Siddharth Garibay MD Chest X-Ray 10/10/17 0600 Signed Impressions: Service Date/Time: Tuesday, October 10, 2017 03:28 - CONCLUSION: Patchy density at the bases likely related to mild atelectasis or consolidation. Fernando Ann MD Upper Extremity Ultrasound 10/10/17 0000 Signed Impressions: Service Date/Time: Tuesday, October 10, 2017 19:18 - CONCLUSION: Venous thrombosis of the right cephalic vein from the elbow to the wrist. Fernando Rooney MD Head CT 10/05/17 0000 Signed Impressions: Service Date/Time: Thursday, October 05, 2017 09:32 - CONCLUSION: Negative for acute process. Dajuan Mendez MD FACR Chest X-Ray 10/05/17 0000 Signed Impressions: Service Date/Time: Thursday, October 05, 2017 07:50 - CONCLUSION: 1. Small bilateral effusions with patchy areas of infiltrate. There are air bronchograms seen on the left. Exam is concerning for pneumonia. Syed Mendez MD CT Angiography 09/30/17 2723 Signed Impressions: Service Date/Time: Saturday, September 30, 2017 17:50 - CONCLUSION: 1. Diffuse bilateral pulmonary infiltrates with cylindrical bronchiectasis. 2. No pulmonary embolus. Dre Moseley Jr., MD PHYSICAL EXAMINATION GENERAL: No acute distress. HEENT: No icterus. Oropharynx mucosa moist. NECK: No swelling or adenopathy. LUNGS: Decreased breath sounds. HEART: Regular, S1-S2 without audible murmurs, rubs or gallops. ABDOMEN: Bowel sounds present, soft, non tender. EXTREMITIES: No clubbing or cyanosis or edema. SKIN: No rash. NEURO: Non focal. IMPRESSION 1. Pneumonia. Abnormal CXR. Negative cultures. 2. Leukocytosis secondary to infection. Also on steroids which could be contributing. WBC still elevated but decreasing. 3. Acute respiratory failure. Resolved. 4. Multiple sclerosis. RECOMMENDATIONS 1. Stop azithromycin on 10/16. 2. Monitor the WBC. Okay for D/c from my standpoint. Lorenzo Simpson MD Oct 15, 2017 17:44
--- NOTE | 2017-10-15 20:15 | HHI.PR ---
Subjective Remarks Alert and still weak. On O2 3L N/C.Wants Scopolamine for vertigo CXR stable. Sitting up and tolerates PT Objective Vital Signs Date Time Temp Pulse Resp B/P (MAP) Pulse Ox O2 Delivery O2 Flow Rate FiO2 10/15/17 16:00 97.3 109 18 135/87 (103) 97 10/15/17 16:00 107 10/15/17 15:54 100 Nasal Cannula 2.00 10/15/17 12:00 97.6 96 16 124/82 (96) 100 10/15/17 12:00 112 10/15/17 09:09 100 Nasal Cannula 3.00 10/15/17 08:00 97.2 94 20 138/91 (107) 100 10/15/17 08:00 83 10/15/17 04:30 98.0 90 18 132/84 (100) 100 10/14/17 23:52 98.4 99 18 116/79 (91) 99 10/14/17 20:15 98.1 106 18 138/74 (95) 99 I/O 10/14/17 10/14/17 10/14/17 10/15/17 10/15/17 10/15/17 07:00 15:00 23:00 07:00 15:00 23:00 Intake Total 480 ml 0 ml 840 ml Output Total 500 ml 250 ml 400 ml Balance -20 ml -250 ml 440 ml Intake Oral 480 ml 0 ml 840 ml Output Urine Total 500 ml 250 ml 400 ml # Voids 1 # Bowel Movements 1 1 Result Diagram: 10/15/17 0551 10/13/17 0355 Objective Remarks This moderately overweight middle-aged -[place] lady alert HEENT: Head normocephalic. Pupils are reactive. Sclerae are clear. Throat clear Neck: Supple. No bruits or thyroid enlargement, no lymphadenopathy. Chest: Distant breath sounds with occ wheezes bilaterally. Heart: Heart sounds are regular, S1-S2 with no murmur. No S3. Abdomen: Soft, obese without masses, no organomegaly or tenderness. Bowel sounds are active. Extremities: Min edema. No calf tenderness. Reflexes are 1+. The patient is awake and moving all extremities. Cooperative. Skin: No lesions are observed. Assessment and Plan Assessment and Plan IMPRESSION: 1. Bilateral pneumonia. 2. Interstitial lung disease, chronic with reactive airway. 3. Acute respiratory failure. 4. History of multiple sclerosis. 5. Pulmonary Edema Plan : 1. Wean O2 to 2 L 2. Cont Antibiotics as ordered 3. Duonebs qid.PRN 4. Soft diet. 5. IS at bedside q2h 6. Rehab placement 7. Prednisone 20 mg bid 8. PT Evaluation 9. Scopolamine patch 1.5 mg /72 hr. aMrt Prescott MD Oct 15, 2017 20:15
--- NOTE | 2017-10-15 21:47 | HHI.PR ---
Review/Management Diagnosis Multiple Sclerosis---she feels weaker in general than her baseline. No enhancing (active ) plaques on MRI--suggest pseudoexacerbation cervical stenosis Plan neurosurgery consult regarding cervical spondylosis Diagnosis/Plan: Subjective Subjective Comments No acute events reported feels weak in general Active Medications Current Medications Medications (Trade) Dose Ordered Sig/Marielos Route Start Time Stop Time Status Last Admin (Aspirin Chew) 81 mg DAILY PO 10/01/17 09:00 10/12/17 09:11 (Lioresal) 10 mg TID PO 10/01/17 09:00 10/15/17 17:48 (Antivert) 12.5 mg BID PRN PO 09/30/17 19:30 (NS Flush) 2 ml UNSCH PRN IV FLUSH 09/30/17 19:30 10/06/17 22:39 (NS Flush) 2 ml BID IV FLUSH 09/30/17 21:00 10/15/17 20:28 (Tylenol) 650 mg Q6H PRN PO 09/30/17 19:30 (Morphine Inj) 2 mg Q2H PRN IV PUSH 09/30/17 20:30 10/10/17 03:07 (Zofran Inj) 4 mg Q6H PRN IV PUSH 09/30/17 19:30 (Heparin Inj) 5,000 units Q8H SQ 09/30/17 20:00 10/15/17 20:28 Miscellaneous Information 1 Q361D XX 09/30/17 19:30 09/30/17 19:30 (Chlorhexidine 2% Cloth) Taper DAILY@04 TOP 10/01/17 04:00 09/27/18 03:59 10/08/17 04:00 (Chlorhexidine 2% Cloth) 3 pack UNSCH PRN TOP 09/30/17 19:30 (Carolyn-Colace) 1 tab BID PO 09/30/17 21:00 10/15/17 20:28 (Milk Of Magnesia Liq) 30 ml Q12H PRN PO 09/30/17 19:30 (Senokot) 17.2 mg Q12H PRN PO 09/30/17 19:30 (Dulcolax Supp) 10 mg DAILY PRN RECTAL 09/30/17 19:30 10/02/17 08:18 (Lactulose Liq) 30 ml DAILY PRN PO 09/30/17 19:30 (Pill Splitter) 1 ea UNSCH PRN OTHER 09/30/17 20:30 (D50w (Vial) Inj) 50 ml UNSCH PRN IV PUSH 10/01/17 09:30 (Glucagon Inj) 1 mg UNSCH PRN OTHER 10/01/17 09:30 (Levemir Inj) 5 units Q12HR SQ 10/03/17 10:15 10/15/17 20:35 (Bumetanide) 1 mg DAILY PO 10/07/17 18:19 10/15/17 08:24 (Albuterol Neb) 2.5 mg Q2HR NEB PRN NEB 10/08/17 01:15 (Zithromax) 500 mg DAILY PO 10/12/17 09:00 10/15/17 08:23 (Pepcid) 20 mg BID PO 10/12/17 09:00 10/15/17 20:28 (Ferrous Sulfate) 325 mg DAILY PO 10/12/17 09:00 10/12/17 09:10 (NovoLIN R SUPPLEMENTAL SCALE) 1 ACHS SQ 10/12/17 08:00 10/15/17 17:00 (Deltasone) 20 mg BID PO 10/12/17 21:00 10/15/17 20:27 ([place] 10-325 Mg) 1 tab Q6H PRN PO 10/13/17 16:00 (Transderm-Scop 1.5 Mg Patch.72 Hr) 1 patch Q3D T-DERMAL 10/14/17 19:00 10/14/17 18:58 Miscellaneous Information 1 Q3D T-DERMAL 10/14/17 19:00 10/14/17 18:59 Allergies Allergies Coded Allergies latex (Unverified Allergy, Unknown, RASH, 09/30/17) furosemide (Verified Adverse Reaction, Unknown, 09/30/17) Exam I&O / VS 10/15/17 10/15/17 10/16/17 15:00 23:00 07:00 Intake Total 840 ml Output Total 400 ml Balance 440 ml Intake Oral 840 ml Output Urine Total 400 ml # Bowel Movements 1 Vital Signs Date Time Temp Pulse Resp B/P (MAP) Pulse Ox O2 Delivery O2 Flow Rate FiO2 10/15/17 16:00 97.3 109 18 135/87 (103) 97 10/15/17 16:00 107 10/15/17 15:54 100 Nasal Cannula 2.00 10/15/17 12:00 97.6 96 16 124/82 (96) 100 10/15/17 12:00 112 10/15/17 09:09 100 Nasal Cannula 3.00 10/15/17 08:00 97.2 94 20 138/91 (107) 100 10/15/17 08:00 83 10/15/17 04:30 98.0 90 18 132/84 (100) 100 10/14/17 23:52 98.4 99 18 116/79 (91) 99 Exam Comments alert, follows commands PERRL She has difficulty with right gaze with an LACI on the left MOTOR 4/5 BUE and BLE Objective Radiology Results MRI brain--plaques of MS with no contrast enhancement, old BG stroke MRI cervical spine--spondylosis C456 with mild spinal cord involvement. No sign of MS plaque in the cord Micro and Labs Laboratory Tests Test 10/15/17 05:51 White Blood Count 18.8 Red Blood Count 4.79 Hemoglobin 11.8 Hematocrit 37.3 Mean Corpuscular Volume 77.8 Mean Corpuscular Hemoglobin 24.7 Mean Corpuscular Hemoglobin Concent 31.8 Red Cell Distribution Width 16.7 Platelet Count 240 Mean Platelet Volume 9.7 Neutrophils (%) (Auto) 83.4 Lymphocytes (%) (Auto) 11.2 Monocytes (%) (Auto) 3.1 Eosinophils (%) (Auto) 2.0 Basophils (%) (Auto) 0.3 Neutrophils # (Auto) 15.7 Lymphocytes # (Auto) 2.1 Monocytes # (Auto) 0.6 Eosinophils # (Auto) 0.4 Basophils # (Auto) 0.1 CBC Comment DIFF FINAL Differential Comment Date/Time Source Procedure Growth Status 09/30/17 20:20 Blood Other Aerobic Blood Culture - Final NO GROWTH IN 5 DAYS Complete 09/30/17 20:20 Blood Other Anaerobic Blood Culture - Final NO GROWTH IN 5 DAYS Complete 10/05/17 11:40 Sputum Endotracheal Gram Stain - Final Complete 10/05/17 11:40 Sputum Endotracheal Sputum Culture - Final LIGHT GROWTH NORMAL RESPIRATORY FAM Complete 10/03/17 10:45 Urine Catheterized Urine Streptococcus pneumoniae Antigen (M - Final PRESUMPTIVE NEGATIVE FOR STREPTOCOCCU... Complete Shaq Armstrong MD PhD Oct 15, 2017 21:47
[2017-10-16 03:25] VITALS: BP 127/74; PULSE 94; RESP 18; TEMP 97.4; O2SAT 95
[2017-10-16 03:46] VITALS: PULSE 93
[2017-10-16] MEDS: CHLORHEXIDINE GLUCONATE 2 % 1 PACK (2 CLOTHS) TOP SCH (04:00)
[2017-10-16] MEDS: HEPARIN SODIUM - SQ 10,000 UNITS/ML VIAL SQ SCH ×2 (05:00→12:26)
[2017-10-16 07:50] VITALS: PULSE 88
[2017-10-16 08:00] VITALS: BP 128/79; PULSE 90; RESP 18; TEMP 97.6; O2SAT 97
[2017-10-16] MEDS: INSULIN NovoLIN REGULAR SUPPLEMENTAL SCALE SQ SCH ×2 (08:03→12:22)
[2017-10-16] MEDS ORDERED: PRED10 PO (08:30)
[2017-10-16] MEDS ORDERED: Albuterol Neb NEB (08:30)
[2017-10-16] MEDS ORDERED: NOVORP2 SQ (08:30)
--- NOTE | 2017-10-16 09:14 | PD.CONS ---
HPI Service Neurosurgery Consult Requested By Neurology-Dr. Shaq Armstrong Reason for Consult Cervical stenosis Primary Care Physician Luis Lowery MD History of Present Illness 52-year-old female with history of multiple sclerosis. She has a history of CVA. She presents to the emergency room on 09/30/2017 with increasing shortness of breath and was intubated due to respiratory insufficiency. She has been treated for pneumonia during this hospitalization. The patient was noted to have altered mental status. Neurology evaluation was requested and patient was felt to have encephalopathy. An EEG on 10/05/17 was interpreted as abnormal with generalized slowing consistent with encephalopathy without epileptiform features. Following extubation, the patient has complained of generalized weakness. MRI of the brain and cervical spine have been accomplished. Infectious disease has been following. Antibiotics discontinued on 10/16/17 with negative cultures. Leukocytosis possibly related to steroids. Review of Systems Constitutional: COMPLAINS OF: Fatigue Respiratory: COMPLAINS OF: Cough, Shortness of breath Past Family Social History Allergies: Coded Allergies: latex (Unverified Allergy, Unknown, RASH, 09/30/17) furosemide (Verified Adverse Reaction, Unknown, 09/30/17) pt states get cramping in his legs Past Medical History MS COPD Hypertension GERD Past Surgical History No major surgeries reported Reported Medications Reported Meds & Active Scripts Active [Albuterol Neb] 2.5 MG/3 ML Nebu 2.5 Mg NEB Q2HR NEB PRN 30 Days Prednisone 10 Mg Tab 10 Mg PO DAILY Take 20mg daily for 3 days; 10mg daily for 3 days, then stop. Novolin R Inj (Insulin Human Regular) 1,000 Unit/10 Ml Vial 1 Injection SQ ACHS 30 Days Reported Baclofen 10 Mg Tab 10 Mg PO TID Scopolamine 1 Mg/3 Day Patch.td.3 0.33 Patch TD Q72HR Meclizine (Meclizine HCl) 12.5 Mg Tab 12.5 Mg PO BID PRN Lisinopril 10 Mg Tab 10 Mg PO DAILY Ferrous Sulfate DR (Ferrous Sulfate) 324 Mg Tabdr 324 Mg PO DAILY Aspirin 81 Mg Chew 81 Mg PO DAILY Family History Diabetes in mother and father. Social History No smoking history Alcohol social Physical Exam Vital Signs Vital Signs Date Time Temp Pulse Resp B/P (MAP) Pulse Ox O2 Delivery O2 Flow Rate FiO2 10/16/17 04:00 Nasal Cannula 2.00 10/16/17 03:46 93 10/16/17 03:25 97.4 94 18 127/74 (91) 95 10/16/17 00:00 Nasal Cannula 2.00 10/15/17 23:40 96 10/15/17 23:38 98.3 99 18 129/73 (91) 96 10/15/17 21:24 98.4 102 18 132/77 (95) 99 10/15/17 20:00 Nasal Cannula 2.00 10/15/17 19:41 106 10/15/17 16:00 97.3 109 18 135/87 (103) 97 10/15/17 16:00 107 10/15/17 15:54 100 Nasal Cannula 2.00 10/15/17 12:00 97.6 96 16 124/82 (96) 100 10/15/17 12:00 112 10/15/17 09:09 100 Nasal Cannula 3.00 Physical Exam GENERAL: This is a well-nourished, well-developed patient, no apparent distress. SKIN: No abrasions, contusion, rash noted. Skin warm and dry. HEAD: Atraumatic. Normocephalic. No temporal or scalp tenderness. EYES: Sclerae are clear and nonicteric ENT: No facial edema or ecchymosis. No periorbital edema. No CSF otorrhea or rhinorrhea. No palpable facial fracture or deformity. NECK: Trachea midline. No cervical spine tenderness. CARDIOVASCULAR: Regular rate and rhythm without murmurs, gallops, or rubs. RESPIRATORY: Clear to auscultation. Breath sounds equal bilaterally. No wheezes , rales, or rhonchi. GASTROINTESTINAL: Abdomen soft, non-tender, nondistended. No hepato-splenomegaly , or palpable masses. No guarding. MUSCULOSKELETAL: Extremities without cyanosis, or edema. No joint tenderness, or edema noted. No calf tenderness. Dorsalis pedis pulses 2+ bilateral NEUROLOGICAL: Awake and alert Oriented X 3 Speech is mildly slowed Conversant and appropriate Follow simple commands well Answers questions appropriately Reasonable judgment and insight Recent and remote memory are intact No evidence of anxiety or depression Pupils are equal and reactive to accommodation. Extra-ocular movements, visual rouse to confrontation, facial sensorimotor, tongue, palate, sternocleidomastoid testing, hearing to finger rub testing, and bilateral shoulder shrug are all intact. Sensation is intact to light touch in all extremities Strength is mostly 4-4+/5 diffuse throughout the upper and lower extremities with no focal motor deficit. Mikaela's absent bilaterally No ankle clonus Plantar responses absent bilateral Fine motor movements intact upper extremities Laboratory Date/Time Source Procedure Growth Status 09/30/17 20:20 Blood Other Aerobic Blood Culture - Final NO GROWTH IN 5 DAYS Complete 09/30/17 20:20 Blood Other Anaerobic Blood Culture - Final NO GROWTH IN 5 DAYS Complete 10/05/17 11:40 Sputum Endotracheal Gram Stain - Final Complete 10/05/17 11:40 Sputum Endotracheal Sputum Culture - Final LIGHT GROWTH NORMAL RESPIRATORY FAM Complete 10/03/17 10:45 Urine Catheterized Urine Streptococcus pneumoniae Antigen (M - Final PRESUMPTIVE NEGATIVE FOR STREPTOCOCCU... Complete Result Diagram: 10/15/17 0551 10/13/17 0355 Imaging 10/14/17 MRI brain and cervical spine images reviewed by the undersigned. There is moderate mid cervical stenosis without significant spinal cord compression. Relatively mild left C5 6 foraminal stenosis. Chest X-Ray 10/14/17 0600 Signed Impressions: Service Date/Time: Saturday, October 14, 2017 11:13 - CONCLUSION: Diffuse airspace disease. Oscar Luu MD Cervical Spine MRI 10/14/17 0000 Signed Impressions: Service Date/Time: Saturday, October 14, 2017 11:57 - CONCLUSION: 1. Protrusion at C5-6 and C6-7 levels. Mild canal stenosis. 2. No demyelinating plaque seen. García Jmail MD Brain MRI 10/14/17 0000 Signed Impressions: Service Date/Time: Saturday, October 14, 2017 11:57 - CONCLUSION: 1. Remote left basal ganglia infarct. 2. Minimal nonspecific periventricular white matter changes which may be related to demyelinating process such as multiple sclerosis. García Jamil MD Upper Extremity Ultrasound 10/10/17 0000 Signed Impressions: Service Date/Time: Tuesday, October 10, 2017 19:18 - CONCLUSION: Venous thrombosis of the right cephalic vein from the elbow to the wrist. Fernando Rooney MD Head CT 10/05/17 0000 Signed Impressions: Service Date/Time: Thursday, October 05, 2017 09:32 - CONCLUSION: Negative for acute process. Dajuan Mendez MD FACR CT Angiography 09/30/17 1723 Signed Impressions: Service Date/Time: Saturday, September 30, 2017 17:50 - CONCLUSION: 1. Diffuse bilateral pulmonary infiltrates with cylindrical bronchiectasis. 2. No pulmonary embolus. Dre Moseley Jr., MD Assessment and Plan Assessment and Plan Impression: 1. Moderate cervical stenosis without significant cord compression. No abnormal signal intensity within the cord on MRI. 2. Relatively mild to moderate left C5 6 foraminal stenosis without focal radiculopathy 3. History of MS Recommendations: Findings discussed with patient No surgical intervention is recommended for the cervical stenosis. No definite myelopathic findings on examination or evidence of significant cord compression on MRI. Signs and symptoms to watch were discussed with patient She may discharge home from neurosurgical standpoint with follow-up outpatient basis in the future as needed if new symptoms develop. Blaise Zuleta MD Oct 16, 2017 09:14
[2017-10-16] MEDS: BUMETANIDE 1 MG TAB PO SCH (09:44)
[2017-10-16] MEDS: BACLOFEN 10 MG TAB PO SCH ×2 (09:44→12:27)
[2017-10-16] MEDS: SODIUM CHLORIDE 0.9% FLUSH 10 ML FLUSH IV FLUSH SCH (09:44)
[2017-10-16] MEDS: FAMOTIDINE 20 MG TAB PO SCH (09:44)
[2017-10-16] MEDS: FERROUS SULFATE 325 MG (65 MG ELEMENTAL IRON) TAB PO SCH ×2 (09:44→09:45)
[2017-10-16] MEDS: predniSONE 20 MG TAB PO SCH (09:45)
[2017-10-16] MEDS: AZITHROMYCIN 250 MG TAB PO SCH (09:45)
[2017-10-16] MEDS: INSULIN DETEMIR 100 UNITS/ML VIAL SQ SCH (09:46)
[2017-10-16] MEDS: DOCUSATE SODIUM 50 MG/SENNA 8.6 MG TAB PO SCH (09:46)
[2017-10-16] MEDS: ASPIRIN 81 MG CHEW TAB PO SCH (09:46)
[2017-10-16 12:00] VITALS: BP 141/87; PULSE 103; PULSE 111; RESP 18; TEMP 97.3; O2SAT 95
[2017-10-16 12:18] VITALS: O2SAT 96
--- NOTE | 2017-10-16 12:21 | HHI.PR ---
Subjective Remarks Says she is feeling well. Denies any chest pain or shortness of breath. Feels like going to rehabilitation. Objective Vital Signs Date Time Temp Pulse Resp B/P (MAP) Pulse Ox O2 Delivery O2 Flow Rate FiO2 10/16/17 08:00 97.6 90 18 128/79 (95) 97 10/16/17 04:00 Nasal Cannula 2.00 10/16/17 03:46 93 10/16/17 03:25 97.4 94 18 127/74 (91) 95 10/16/17 00:00 Nasal Cannula 2.00 10/15/17 23:40 96 10/15/17 23:38 98.3 99 18 129/73 (91) 96 10/15/17 21:24 98.4 102 18 132/77 (95) 99 10/15/17 20:00 Nasal Cannula 2.00 10/15/17 19:41 106 10/15/17 16:00 97.3 109 18 135/87 (103) 97 10/15/17 16:00 107 10/15/17 15:54 100 Nasal Cannula 2.00 I/O 10/15/17 10/15/17 10/15/17 10/16/17 10/16/17 10/16/17 06:59 14:59 22:59 06:59 14:59 22:59 Intake Total 0 ml 840 ml 240 ml Output Total 250 ml 400 ml 300 ml Balance -250 ml 440 ml -60 ml Intake Oral 0 ml 840 ml 240 ml Output Urine Total 250 ml 400 ml 300 ml # Voids 1 # Bowel Movements 1 1 1 Result Diagram: 10/15/17 0551 10/13/17 0355 Objective Remarks GENERAL: Patient sitting up in chair. Appears comfortable. SKIN: Warm and dry. HEAD: Normocephalic. EYES: No scleral icterus. No injection or drainage. NECK: Supple, trachea midline. No JVD. CARDIOVASCULAR: Regular rate and rhythm without murmurs, gallops, or rubs. RESPIRATORY: Breath sounds equal bilaterally. No accessory muscle use. no rhonchi GASTROINTESTINAL: Abdomen soft, non-tender, nondistended. MUSCULOSKELETAL: No cyanosis, or edema. BACK: Nontender without obvious deformity. No CVA tenderness. A/P Assessment and Plan 52-year-old female admitted for pneumonia with acute respiratory failure with multiple sclerosis flareup //Community-acquired pneumonia Continue Zosyn Continue azithromycin Continue yudith yuen Infectious disease physician following Oxygen supplementation as needed = Patient continues improving. Likely discharge tomorrow to SNF. Appreciate pulmonology assistance. = Patient feeling better. Discharge to SNF. ////History of posterior pontine hemorrhagic CVA 2012 //History of multiple sclerosis. Dysphagia, chronic History of migraine headaches History of lupus cerebritis Multiple sclerosis Continue baclofen Follow clinically Mechanical soft diet = Appreciate neurology assistance. Likely pseudo-exacerbation of MS. Follow- up with neurology as outpatient. //Gastroesophageal reflux disease continue famotidine //Hyperglycemia Follow blood sugars Insulin sliding scale Diabetic diet = Glucose up to 200 today. Also patient with outside food from [employer]. ( was eatin [employer] sandwich) Patient counseled to avoid outside food. Expect improvement with tapering steroids further. //leukocytosis. 18 yesterday. Improving. Likely secondary to steroids. Follow-up at receiving facility. DVT prophylaxis SCD, Heparin SQ. Discharge Planning dc to SNF PT assistance. Adalid Jaffe MD Oct 16, 2017 12:21
--- NOTE | 2017-10-16 12:23 | HHI.DS ---
Discharge Summary Admission Date Sep 30, 2017 at 18:39 Discharge Date: Oct 16, 2017 Admitting Diagnosis Hypoxia/respiratory distress/pneumonia (1) Pneumonia ICD Code: J18.9 - Pneumonia, unspecified organism Status: Acute Procedures No invasive procedures. Brief History - From Admission 52-year-old unfortunate female patient with history of MS, previous stroke, chronic lung disease, presents to the ER today because she has had worsening dyspnea on exertion end shortness of breath with getting up from bed. She has also been coughing. She states that similar symptoms have happened before and she has been like this since October last year. She states that she has had "fluid in the lungs". She denies any chest pains, fevers, or other symptoms. She is very poor historian. CBC/BMP: 10/15/17 0551 10/13/17 0355 Significant Findings Laboratory Tests Test 10/14/17 04:55 10/14/17 14:10 10/15/17 05:51 White Blood Count 19.5 TH/MM3 (4.0-11.0) 18.8 TH/MM3 (4.0-11.0) Mean Corpuscular Volume 77.2 FL (80.0-100.0) 77.8 FL (80.0-100.0) Mean Corpuscular Hemoglobin 24.6 PG (27.0-34.0) 24.7 PG (27.0-34.0) Mean Corpuscular Hemoglobin Concent 31.9 % (32.0-36.0) 31.8 % (32.0-36.0) Neutrophils (%) (Auto) 83.6 % (16.0-70.0) 83.4 % (16.0-70.0) Neutrophils # (Auto) 16.3 TH/MM3 (1.8-7.7) 15.7 TH/MM3 (1.8-7.7) Imaging Last Impressions Chest X-Ray 10/14/17 0600 Signed Impressions: Service Date/Time: Saturday, October 14, 2017 11:13 - CONCLUSION: Diffuse airspace disease. Oscar Luu MD Cervical Spine MRI 10/14/17 0000 Signed Impressions: Service Date/Time: Saturday, October 14, 2017 11:57 - CONCLUSION: 1. Protrusion at C5-6 and C6-7 levels. Mild canal stenosis. 2. No demyelinating plaque seen. García Jamil MD Brain MRI 10/14/17 0000 Signed Impressions: Service Date/Time: Saturday, October 14, 2017 11:57 - CONCLUSION: 1. Remote left basal ganglia infarct. 2. Minimal nonspecific periventricular white matter changes which may be related to demyelinating process such as multiple sclerosis. García Jamil MD Upper Extremity Ultrasound 10/10/17 0000 Signed Impressions: Service Date/Time: Tuesday, October 10, 2017 19:18 - CONCLUSION: Venous thrombosis of the right cephalic vein from the elbow to the wrist. Fernando Rooney MD Head CT 10/05/17 0000 Signed Impressions: Service Date/Time: Thursday, October 05, 2017 09:32 - CONCLUSION: Negative for acute process. Dajuan Mendez MD FACR CT Angiography 09/30/17 1723 Signed Impressions: Service Date/Time: Saturday, September 30, 2017 17:50 - CONCLUSION: 1. Diffuse bilateral pulmonary infiltrates with cylindrical bronchiectasis. 2. No pulmonary embolus. Dre Moseley Jr., MD PE at Discharge GENERAL: This is a 52-year-old female patient really resting in bed on nasal cannula in no acute distress SKIN: Focused skin assessment warm/dry. HEAD: Atraumatic. Normocephalic. EYES: Pupils equal and round. No scleral icterus. No injection or drainage. ENT: No nasal bleeding or discharge. Mucous membranes pink and moist. NECK: Trachea midline. No JVD. CARDIOVASCULAR: Tachycardic. S1, S2. No S4. No murmur appreciated. RESPIRATORY: Few crackles appreciated in the bases bilaterally. No wheezing GASTROINTESTINAL: Abdomen soft, non-tender, nondistended. Hypoactive bowel sounds appreciated MUSCULOSKELETAL: No obvious deformities. No skin peripheral edema. Neuro: Cranial nerves II through XII are grossly intact. Strength is equal symmetric. Normal sensation. Follows commands Hospital Course Chest x-ray on admissionwith bilateral airspace infiltrates and normal BNP. CT pulmonary angiogram as above. Patient was treated for atypical pneumonia with broad-spectrum antibiotics, Nebs, IV steroids, with improvement. Pulmonology and infectious disease followed during admission. Patient reported generalized weakness, for which neurology was consulted. Brain MRI with remote basal ganglia infarct, minimal nonspecific periventricular white matter changes; neurology feels this is a pseudo-exacerbation. MRI C-spine with mild canal stenosis secondary to disc protrusion at C5-6, C6-7. Neurosurgery has evaluated the patient, and will follow-up in clinic. Patient will be on insulin sliding scale due to steroid-induced hyperglycemia Lisinopril was held during admission, with acceptable blood pressure. Can consider restarting as outpatient. For problem-based summary from most recent progress note, please see below. 52-year-old female admitted for pneumonia with acute respiratory failure with multiple sclerosis flareup //Community-acquired pneumonia Continue Zosyn Continue azithromycin Continue duo wilfrid Infectious disease physician following Oxygen supplementation as needed = Patient continues improving. Likely discharge tomorrow to SNF. Appreciate pulmonology assistance. = Patient feeling better. Discharge to SNF. ////History of posterior pontine hemorrhagic CVA 2012 //History of multiple sclerosis. Dysphagia, chronic History of migraine headaches History of lupus cerebritis Multiple sclerosis Continue baclofen Follow clinically Mechanical soft diet = Appreciate neurology assistance. Likely pseudo-exacerbation of MS. Follow- up with neurology as outpatient. //Gastroesophageal reflux disease continue famotidine //Hyperglycemia Follow blood sugars Insulin sliding scale Diabetic diet = Glucose up to 200 today. Also patient with outside food from [employer]. ( was eatin [employer] sandwich) Patient counseled to avoid outside food. Expect improvement with tapering steroids further. //leukocytosis. 18 yesterday. Improving. Likely secondary to steroids. Follow-up at receiving facility. DVT prophylaxis SCD, Heparin SQ. Discharge Planning dc to SNF PT assistance. Pt Condition on Discharge: Good Discharge Disposition: Discharge to SNF Discharge Time: > 30 minutes Discharge Instructions DIET: Follow Instructions for: Heart Healthy Diet Activities you can perform: Regular-No Restrictions Follow up Referrals: Neurology - 1 Week with Shaq Armstrong MD PhD Neurosurgery - 2 Weeks with Blaise Zuleta MD New Medications: Prednisone (Prednisone) 10 Mg Tab 10 MG PO DAILY for copd, #9 TAB 0 Refills Take 20mg daily for 3 days; 10mg daily for 3 days, then stop. Insulin Human Regular Inj (Novolin R Inj) 1,000 Unit/10 Ml Vial 1 INJECTION SQ ACHS for steroid diabetes for 30 Days, INJECTION [Albuterol Neb] () 2.5 MG/3 ML NEBU 2.5 MG NEB Q2HR NEB PRN for dyspnea for 30 Days Continued Medications: Aspirin (Aspirin) 81 Mg Chew 81 MG PO DAILY, #1 TAB 0 Refills Baclofen (Baclofen) 10 Mg Tab 10 MG PO TID, TAB [address] (Ferrous Sulfate DR) 324 Mg Tabdr 324 MG PO DAILY for Nutritional Supplement, #30 TAB 0 Refills Meclizine (Meclizine) 12.5 Mg Tab 12.5 MG PO BID PRN for VERTIGO, TAB 0 Refills Scopolamine (Scopolamine) 1 Mg/3 Day Patch.td.3 0.33 PATCH TD Q72HR Discontinued Medications: Lisinopril (Lisinopril) 10 Mg Tab 10 MG PO DAILY, #30 TAB 0 Refills Adalid Jaffe MD Oct 16, 2017 12:23
--- NOTE | 2017-10-16 12:49 | HHI.PR ---
Subjective Remarks Alert and Breathing better.. On O2 2 L N/C. No wheezing. Taking a diet. Sitting up and tolerates PT Objective Vital Signs Date Time Temp Pulse Resp B/P (MAP) Pulse Ox O2 Delivery O2 Flow Rate FiO2 10/16/17 12:18 96 Nasal Cannula 2.00 10/16/17 08:00 3.00 10/16/17 08:00 97.6 90 18 128/79 (95) 97 10/16/17 04:00 Nasal Cannula 2.00 10/16/17 03:46 93 10/16/17 03:25 97.4 94 18 127/74 (91) 95 10/16/17 00:00 Nasal Cannula 2.00 10/15/17 23:40 96 10/15/17 23:38 98.3 99 18 129/73 (91) 96 10/15/17 21:24 98.4 102 18 132/77 (95) 99 10/15/17 20:00 Nasal Cannula 2.00 10/15/17 19:41 106 10/15/17 16:00 97.3 109 18 135/87 (103) 97 10/15/17 16:00 107 10/15/17 15:54 100 Nasal Cannula 2.00 I/O 10/15/17 10/15/17 10/15/17 10/16/17 10/16/17 10/16/17 07:00 15:00 23:00 07:00 15:00 23:00 Intake Total 0 ml 840 ml 240 ml Output Total 250 ml 400 ml 300 ml Balance -250 ml 440 ml -60 ml Intake Oral 0 ml 840 ml 240 ml Output Urine Total 250 ml 400 ml 300 ml # Voids 1 # Bowel Movements 1 1 1 Result Diagram: 10/15/17 0551 10/13/17 0355 Objective Remarks This moderately overweight middle-aged -[place] lady alert HEENT: Head normocephalic. Pupils are reactive. Sclerae are clear. Throat clear Neck: Supple. No bruits or thyroid enlargement, no lymphadenopathy. Chest: Distant breath sounds with occ wheezes bilaterally. Heart: Heart sounds are regular, S1-S2 with no murmur. No S3. Abdomen: Soft, obese without masses, no organomegaly or tenderness. Bowel sounds are active. Extremities: Min edema. No calf tenderness. Reflexes are 1+. The patient is awake and moving all extremities. Cooperative. Skin: No lesions are observed. Assessment and Plan Assessment and Plan IMPRESSION: 1. Bilateral pneumonia. 2. Interstitial lung disease, chronic with reactive airway. 3. Acute respiratory failure. 4. History of multiple sclerosis. 5. Pulmonary Edema Plan : 1. Cont O2 2 L 2. Cont Antibiotics as ordered 3. Duonebs qid.PRN 4. Soft diet. 5. IS at bedside q2h 6. Rehab placement 7. Prednisone 30 mg daily 8. PT Evaluation 9. Scopolamine patch 1.5 mg /72 hr. Mart Prescott MD Oct 16, 2017 12:49
[2017-10-17] MEDS ORDERED: predniSONE 10 MG TAB PO SCH (09:00)
== END 2017-10-16 14:31 | DRG 207 ==
LOC: NEPC 15:43 → NEDA 18:39 → HIMN 23:05 → N04A 10-14 16:05
PROVIDERS: ADMIT Internal Medicine; ATTEND Internal Medicine
PROC: 5A09357 Assistance with Respiratory Ventilation, Less than 24 Consecutive Hours, Continuous Positive Airway Pressure (ICD-10-PCS; principal; 2017-09-30)
PROC: 5A1955Z Respiratory Ventilation, Greater than 96 Consecutive Hours (ICD-10-PCS; 2017-10-01)
PROC: 0BH17EZ Insertion of Endotracheal Airway into Trachea, Via Natural or Artificial Opening (ICD-10-PCS; 2017-10-01)
DX: J96.01 Acute respiratory failure with hypoxia (principal); G04.81 Other encephalitis and encephalomyelitis; G93.41 Metabolic encephalopathy; J18.9 Pneumonia, unspecified organism; J84.9 Interstitial pulmonary disease, unspecified; M32.19 Other organ or system involvement in systemic lupus erythematosus; J44.0 Chronic obstructive pulmonary disease with (acute) lower respiratory infection; Z99.11 Dependence on respirator [ventilator] status; R13.10 Dysphagia, unspecified; I07.1 Rheumatic tricuspid insufficiency; G35 Multiple sclerosis; M48.02 Spinal stenosis, cervical region; F41.9 Anxiety disorder, unspecified; Z86.73 Personal history of transient ischemic attack (TIA), and cerebral infarction without residual deficits; I10 Essential (primary) hypertension; K21.9 Gastro-esophageal reflux disease without esophagitis; G43.909 Migraine, unspecified, not intractable, without status migrainosus; Z83.3 Family history of diabetes mellitus; Z82.49 Family history of ischemic heart disease and other diseases of the circulatory system; Z87.01 Personal history of pneumonia (recurrent); Z90.710 Acquired absence of both cervix and uterus; E88.09 Other disorders of plasma-protein metabolism, not elsewhere classified; E78.00 Pure hypercholesterolemia, unspecified; M50.222 Other cervical disc displacement at C5-C6 level; R73.9 Hyperglycemia, unspecified
CPT/HCPCS: 31500; 36600; 70450; 70553; 71045; 71046; 71275; 72156; 76937; 80048; 80053; 80202; 82550; 82805; 82948; 83735; 83880; 84100; 84484; 84702; 85007; 85025; 85027; 85610; 85730; 87040; 87070; 87205; 87449; 87493; 87641; 87804; 93005; 93306; 93971; 94002; 94003; 94150; 94640; 94664; 94667; 94668; 95819; 96374; 96375; A9579; J0456; J0692; J1200; J1644; J1940; J2060; J2250; J2270; J2543; J2920; J2930; J3370; J7040; J7050; J7512; J7613; Q9967